=== PATIENT | male | born 1950 | race Caucasian/White ===

== ENCOUNTER → 2016-12-01 | Outpatient (REF) | payer MEDICARE, OTHER ==
[~2016-12-01] MED LIST: AMBI12.52 PO; AMBIE; AMBIEN PO; DOXA8TAB PO; FLEC50TA PO; FLUTISP; LIPI20TA PO; NORCOTAB PO; TENO25TA PO
[2016-12-01 13:00] LABS: ALBUMIN/GLOBULIN RATIO 1.29 (1.00-1.93); ALKALINE PHOSPHATASE 58 U/L (45-117); ALT/SGPT 25 U/L (12-78); ANION GAP 10 MEQ/L (8-16); AST/SGOT 17 U/L (15-37); BILIRUBIN,TOTAL 0.5 MG/DL (0.2-1.0); BLOOD UREA NITROGEN 23 MG/DL (7-18); CARBON DIOXIDE LEVEL 27 MEQ/L (21-32); CHLORIDE LEVEL 106 MEQ/L (98-107); CREATININE FOR GFR 0.99 MG/DL (0.70-1.30); GLOMERULAR FILTRATION RATE > 60.0 (>49); GLUCOSE, FASTING 97 MG/DL (80-110); MAGNESIUM LEVEL 2.1 MG/DL (1.8-2.4); POTASSIUM SERUM 4.5 MEQ/L (3.5-5.1); SODIUM LEVEL 143 MEQ/L (136-145); TOTAL PROTEIN 7.1 GM/DL (6.4-8.2)
== END ==
LOC: M SFHCPLAZ 07:48
PROVIDERS: ATTEND Internal Medicine
DX: I10 Essential (primary) hypertension (principal); R73.01 Impaired fasting glucose; Z01.818 Encounter for other preprocedural examination; Z12.5 Encounter for screening for malignant neoplasm of prostate
CPT/HCPCS: 36415; 80053; 83036; 83735; G0103

== ENCOUNTER → 2017-08-03 | Outpatient (REF) | payer MEDICARE, OTHER | LOC: M SFHCADAM 08:00 | PROVIDERS: ATTEND Internal Medicine | DX: K21.9 Gastro-esophageal reflux disease without esophagitis (principal); I10 Essential (primary) hypertension; E78.00 Pure hypercholesterolemia, unspecified; Z53.8 Procedure and treatment not carried out for other reasons ==

== ENCOUNTER → 2017-08-04 | Outpatient (REF) | payer MEDICARE, OTHER ==
[2017-08-04 12:57] LABS: MEAN CORPUSCULAR HEMOGLOBIN 30.3 pg (27.0-33.0); MEAN CORPUSCULAR HGB CONC 33.4 g/dl (32.0-36.5); MEAN CORPUSCULAR VOLUME 90.7 fl (80.0-96.0); RED CELL DISTRIBUTION WIDTH 13.4 % (11.5-14.5); WHITE BLOOD COUNT 5.5 10^3/uL (4.0-10.0)
[2017-08-04 13:09] LABS: ALBUMIN/GLOBULIN RATIO 1.18 (1.00-1.93); ALKALINE PHOSPHATASE 42 U/L (45-117); ALT/SGPT 26 U/L (12-78); ANION GAP 7 MEQ/L (8-16); AST/SGOT 15 U/L (15-37); BILIRUBIN,TOTAL 0.5 MG/DL (0.2-1.0); BLOOD UREA NITROGEN 29 MG/DL (7-18); CALCIUM LEVEL 9.6 MG/DL (8.8-10.2); CARBON DIOXIDE LEVEL 28 MEQ/L (21-32); CHLORIDE LEVEL 105 MEQ/L (98-107); CHOLESTEROL LEVEL 169 MG/DL (<200); CREATININE FOR GFR 0.92 MG/DL (0.70-1.30); GLOMERULAR FILTRATION RATE > 60.0 (>49); GLUCOSE, FASTING 101 MG/DL (80-110); MAGNESIUM LEVEL 2.1 MG/DL (1.8-2.4); POTASSIUM SERUM 4.1 MEQ/L (3.5-5.1); SODIUM LEVEL 140 MEQ/L (136-145); TOTAL PROTEIN 7.4 GM/DL (6.4-8.2); TRIGLYCERIDES LEVEL 77 MG/DL (<150)
== END ==
LOC: M SFHCADAM 08:05
PROVIDERS: ATTEND Internal Medicine
DX: K21.9 Gastro-esophageal reflux disease without esophagitis (principal); I10 Essential (primary) hypertension; E78.00 Pure hypercholesterolemia, unspecified

== ENCOUNTER → 2018-02-03 | Outpatient (REF) | payer MEDICARE, OTHER ==
[2018-02-03 13:06] LABS: APPEARANCE, URINE CLEAR (CLEAR); BACTERIA, URINE AUTO NEGATIVE (NEGATIVE); BILIRUBIN, URINE AUTO NEGATIVE (NEGATIVE); BLOOD, URINE BLOOD NEGATIVE (NEGATIVE); COLOR, URINE YELLOW (YELLOW); GLUCOSE, URINE (UA) AUTO NEGATIVE (NEGATIVE); KETONE, URINE AUTO NEGATIVE (NEGATIVE); LEUKOCYTE ESTERASE, URINE AUTO NEGATIVE (NEGATIVE); MUCUS, URINE SMALL (NEGATIVE); NITRITE, URINE AUTO NEGATIVE (NEGATIVE); PROTEIN, URINE AUTO NEGATIVE (NEGATIVE); RBC, URINE AUTO 0 /HPF (0-3); SPECIFIC GRAVITY URINE AUTO 1.021 (1.002-1.035); SQUAMOUS EPITHELIAL CELL UR AU 0 /HPF (0-6); UROBILINOGEN, URINE AUTO 0.2 mg/dL (0.0-2.0); WBC, URINE AUTO 0 /HPF (0-3)
[2018-02-03 13:17] LABS: VITAMIN B12 LEVEL 361 PG/ML
[2018-02-03 13:18] LABS: FOLATE 8.1 NG/ML
[2018-02-03 13:28] LABS: ALBUMIN 4.1 GM/DL (3.2-5.2); ALBUMIN/GLOBULIN RATIO 1.28 (1.00-1.93); ALKALINE PHOSPHATASE 45 U/L (45-117); ALT/SGPT 24 U/L (12-78); ANION GAP 8 MEQ/L (8-16); AST/SGOT 17 U/L (7-37); BILIRUBIN,TOTAL 0.5 MG/DL (0.2-1.0); BLOOD UREA NITROGEN 23 MG/DL (7-18); CALCIUM LEVEL 9.1 MG/DL (8.8-10.2); CARBON DIOXIDE LEVEL 26 MEQ/L (21-32); CHLORIDE LEVEL 107 MEQ/L (98-107); CREATININE FOR GFR 0.91 MG/DL (0.70-1.30); GLOMERULAR FILTRATION RATE > 60.0 (>49); GLUCOSE, FASTING 90 MG/DL (70-100); MAGNESIUM LEVEL 2.1 MG/DL (1.8-2.4); POTASSIUM SERUM 3.9 MEQ/L (3.5-5.1); SODIUM LEVEL 141 MEQ/L (136-145); TOTAL PROTEIN 7.3 GM/DL (6.4-8.2)
[2018-02-03 13:50] LABS: MAU/CREAT RATIO 7.4 MCG/MG (0.0-30.0)
[2018-02-03 14:35] LABS: ESTIMATED AVERAGE GLUCOSE 117 MG/DL (60-110); HEMOGLOBIN A1c 5.7 %
== END ==
LOC: M SFHCADAM 08:09
DX: I10 Essential (primary) hypertension (principal); R73.01 Impaired fasting glucose; G62.9 Polyneuropathy, unspecified; Z87.448 Personal history of other diseases of urinary system
CPT/HCPCS: 82746

== ENCOUNTER → 2018-10-29 | Outpatient (REF) | payer MEDICARE, OTHER ==
[2018-10-29 13:17] LABS: ALT/SGPT 25 U/L (12-78); BILIRUBIN,TOTAL 0.6 MG/DL (0.2-1.0); BLOOD UREA NITROGEN 16 MG/DL (7-18); CALCIUM LEVEL 8.8 MG/DL (8.8-10.2); CARBON DIOXIDE LEVEL 28 MEQ/L (21-32); CHLORIDE LEVEL 105 MEQ/L (98-107); CHOLESTEROL LEVEL 147 MG/DL (<200); CHOLESTEROL RISK RATIO 2.773 (<5); GLOMERULAR FILTRATION RATE > 60.0 (>49); GLUCOSE, FASTING 102 MG/DL (70-100); HDL CHOLESTEROL 53 MG/DL (>40); LDL CHOLESTEROL 70 MG/DL (<100); NON-HDL-C 94 MG/DL; POTASSIUM SERUM 4.1 MEQ/L (3.5-5.1); SODIUM LEVEL 141 MEQ/L (136-145); TOTAL PROTEIN 7.3 GM/DL (6.4-8.2); TRIGLYCERIDES LEVEL 121 MG/DL (<150)
== END ==
LOC: M SFHCADAM 07:48
PROVIDERS: ATTEND Internal Medicine
DX: I10 Essential (primary) hypertension (principal); E78.00 Pure hypercholesterolemia, unspecified; I48.0 Paroxysmal atrial fibrillation; Z23 Encounter for immunization
CPT/HCPCS: 80053; 80061; 83735; 84443; 90682; G0008; G0463

== ENCOUNTER 2019-04-19 00:31 | Inpatient (IN) | payer MEDICARE, OTHER ==
[~2019-04-19] VITALS: Ht 175.3 cm; Wt 106.3 kg
[~2019-04-19 00:31] MED LIST changes: +FLEC50HA PO; -FLEC50TA PO; +FLUT1SPR2; -FLUTISP
[2019-04-19] MEDS ORDERED: BISO5TAB5 PO ×2 (00:37→08:44)
[2019-04-19] MEDS ORDERED: LANS30CA93 (00:37)
[2019-04-19] MEDS ORDERED: CHLO125TA (00:37)
[2019-04-19] MEDS ORDERED: AMLO10TA5 (00:37)
[2019-04-19] MEDS ORDERED: ONDANSETRON 4MG/2ML VIAL (J2405) IV ONE (01:30)
[2019-04-19] MEDS: MORPHINE 4 MG/ML 1ML VIAL/SYRINGE (J2270) IV PRN ×5 (01:52→22:17)
[2019-04-19 01:59] LABS: BASO # 0.1 10^3/uL (0.0-0.2); BASO % 0.9 % (0.0-1.0); EOS # 0.1 10^3/uL (0.0-0.50); HEMATOCRIT 44.4 % (42.0-52.0); LYMPH # 1.3 10^3/uL (1.5-4.5); LYMPH % 19.2 % (24.0-44.0); MEAN CORPUSCULAR HEMOGLOBIN 30.6 pg (27.0-33.0); MEAN CORPUSCULAR HGB CONC 33.8 g/dl (32.0-36.5); MEAN CORPUSCULAR VOLUME 90.6 fl (80.0-96.0); MONO # 0.5 10^3/uL (0.0-0.8); MONO % 7.8 % (0.0-5.0); NEUTROPHILS # 4.6 10^3/uL (1.8-7.7); NEUTROPHILS % 69.6 % (36.0-66.0); PLATELET COUNT, AUTOMATED 198 10^3/uL (150-450); WHITE BLOOD COUNT 6.7 10^3/uL (4.0-10.0)
[2019-04-19 02:05] LABS: INR 0.95; PROTHROMBIN TIME 12.4 SECONDS (11.8-14.0)
[2019-04-19 02:06] LABS: PARTIAL THROMBOPLASTIN TIME 25.9 SECONDS (25.0-38.4)
[2019-04-19 02:16] LABS: ALBUMIN 3.8 GM/DL (3.2-5.2); ALT/SGPT 27 U/L (12-78); BILIRUBIN,DIRECT < 0.1 MG/DL (0.0-0.2); BILIRUBIN,TOTAL 0.1 MG/DL (0.2-1.0); LIPASE 363 U/L (73-393); TOTAL PROTEIN 7.6 GM/DL (6.4-8.2)
[2019-04-19] MEDS ORDERED: ISOVUE-370 76% 100ML VIAL (Q9967) As Ordered ONE (02:54)
[2019-04-19] MEDS: HYDROMORPHONE HCL 0.5 MG/ 0.5 ML SYRINGE (J1170 PER 1) IV PRN ×2 (03:01→05:27)
--- NOTE | 2019-04-19 06:31 | REPVR ---
EXAM: CT Abdomen and Pelvis With Contrast EXAM DATE/TIME: 04/19/2019 3:07 AM CLINICAL HISTORY: 68 years old, male; Epigastric pain, intractable vomiting TECHNIQUE: Imaging protocol: Axial computed tomography images of the abdomen and pelvis with intravenous contrast. Coronal and sagittal reformatted images were created and reviewed. Radiation optimization: All CT scans at this facility use at least one of these dose optimization techniques: automated exposure control; mA and/or kV adjustment per patient size (includes targeted exams where dose is matched to clinical indication); or iterative reconstruction. Contrast material: ISOVUE 370; Contrast volume: 100 ml; Contrast route: IV; COMPARISON: CT ANGIO CHEST 07/07/2012 5:18:15 PM FINDINGS: Tubes, catheters and devices: Pacemaker wires are noted in the right atrium and right ventricle. Lungs: There is mild dependent atelectasis in both lower lobes. Heart: No cardiomegaly is noted. There is a small water density pericardial effusion. Mediastinum: There is a large sliding hiatal hernia. Liver: Unremarkable. No liver lesion is seen. The contour of the liver is smooth. No hepatomegaly is noted. Gallbladder and bile ducts: The gallbladder is markedly distended and contains a 6 mm calculus in the distal body. No gallbladder wall thickening, pericholecystic fluid, or pericholecystic inflammatory changes are identified. No dilation of the intrahepatic or extrahepatic bile ducts is noted. The common bile that measures 5 mm in diameter. No calcified gallstones are seen in the common bile duct. Pancreas: Normal. No ductal dilation. Spleen: Normal. No splenomegaly. Adrenals: There is an 8 mm oval shaped nodule in the lateral limb of the right adrenal gland that measures 24 Hounsfield units, which is stable compared to the prior CTA chest on 07/07/2012. The left adrenal gland is normal. Kidneys and ureters: There are bilateral renal cysts, the largest measuring 3.5 cm in the inferior pole of the left kidney. No calculi are seen in the kidneys or ureters. There is no hydronephrosis or hydroureter. Stomach and bowel: There is a 4.2 cm diverticulum containing an air-fluid level arising from the distal third portion of the duodenum. There is no evidence for a bowel obstruction, diverticulitis, colitis, pneumatosis intestinalis, intussusception, volvulus, or perforated viscus. Appendix: Normal. No evidence for appendicitis. Intraperitoneal space: Unremarkable. No free air. No fluid collection. Vasculature: There are mild atherosclerotic calcifications. The abdominal aorta is patent, normal in caliber, and there is no dissection. The iliac arteries, common femoral arteries, renal arteries, celiac artery, superior mesenteric artery, and inferior mesenteric artery are patent. The renal veins, portal veins, splenic vein, superior mesenteric vein, and inferior mesenteric vein are patent. Lymph nodes: Normal. No enlarged lymph nodes. Bladder: There is a 6 mm diverticulum arising from the right posterolateral aspect of the urinary bladder. No calculi or masses are noted in the bladder. Reproductive: The prostate gland is enlarged and measures 4.9 cm x 4.3 cm x 5.2 cm and the volume of the prostate gland is increased and measures 57.4 mL. There are calcifications in the prostate gland. The seminal vesicles are unremarkable. Bones/joints: There are old healed fracture deformities involving the right anterior 9th and 10th ribs. No acute fracture is noted. An intramedullary nail tract is noted in the left proximal femur from prior hardware that has been removed. There is a large well-corticated ossicle superior to the left greater femoral trochanter. There is a tiny metallic fragment in the left greater femoral trochanter. There are degenerative changes in the lumbar spine. There is no suspicious osteolytic or osteoblastic lesion. Soft tissues: There is a soft tissue density within the umbilicus and also posterior to the umbilicus, which may represent a hernia repair mesh plug. There is a tiny metallic fragment in the left gluteus medius muscle just superior to the left greater femoral trochanter likely related to prior orthopedic fixation hardware that has been removed. IMPRESSION: 1. Markedly distended gallbladder and cholelithiasis. 2. Large sliding hiatal hernia. 3. Duodenal diverticulosis without evidence for diverticulitis. 4. Enlarged prostate gland and a diverticulum arising from the urinary bladder. Electronically signed by: Jose Armando Duong On 04/19/2019 06:30:27 AM
[2019-04-19] MEDS ORDERED: NS 1,000 ML IV SCH (07:27)
[2019-04-19] MEDS ORDERED: POTASSIUM CHLORIDE 10 MEQ SR TABLET PO ONE (07:45)
--- NOTE | 2019-04-19 08:37 | REP ---
Clinical: Right upper quadrant pain. Technique: Real time miller scale and color evaluation using curved array transducer. Findings: The gallbladder is moderately distended and measures 13.2 x 5.0 x 5.1 cm with mild wall thickening and evidence for small gallstones and layering sludge. No biliary ductal dilatation is appreciated and the common bile duct measures 5.9 mm diameter. No sonographic Celaya's sign was elicited during examination. Liver and visualized pancreas are normal in contour, size, echogenicity without focal hepatic or pancreatic lesion identified. The right kidney is normal in reniform shape without hydronephrosis and measures 13.1 x 6.8 x 7.0 cm. No ascites in the visualized right upper quadrant. Impression: Dilated gallbladder with mild wall thickening and evidence for cholelithiasis. Findings are equivocal for acute cholecystitis by sonographic evaluation and require correlation. Electronically Signed by Damion Robles MD 04/19/2019 08:01 A
[2019-04-19] MEDS ORDERED: ATOR40TA75 PO (08:44)
[2019-04-19] MEDS ORDERED: DOXA1TAB49 PO (08:44)
[2019-04-19] MEDS ORDERED: ASPI-1 PO (08:44)
[2019-04-19] MEDS ORDERED: FLON1SPR NARES (08:44)
[2019-04-19] MEDS ORDERED: FLEC1TAB PO (08:44)
[2019-04-19] MEDS ORDERED: LANS30CA PO (08:44)
[2019-04-19] MEDS ORDERED: CHLO25TA PO (08:44)
[2019-04-19] MEDS ORDERED: AMBI10TA PO (08:44)
[2019-04-19] MEDS ORDERED: AMLO10TA5 PO (08:44)
[2019-04-19] MEDS ORDERED: NORC1TAB8 PO (08:44)
[2019-04-19] MEDS ORDERED: BISOPROLOL FUMARATE 5 MG TAB PO ONE (08:45)
[2019-04-19] MEDS ORDERED: PANTOPRAZOLE 40MG INJ (PROTONIX) (C9113) IV SCH (09:00)
[2019-04-19] MEDS ORDERED: BISOPROLOL FUMARATE 5 MG TAB PO SCH (09:00)
[2019-04-19] MEDS ORDERED: PIPERACILLIN/TAZOBACTAM SOD 3.375 GM in D5W MINI-BAG PLUS 50 ML IV ONE (10:00)
[2019-04-19] MEDS ORDERED: GI COCKTAIL 50ML BTL(HYOSCYAMINE/MAALOX/LIDOCAINE VISCOUS)(1:3:1) PO ONE (10:15)
[2019-04-19] MEDS: FLECAINIDE 50MG TABLET PO SCH ×2 (12:40→22:14)
[2019-04-19] MEDS ORDERED: ONDANSETRON 4MG/2ML VIAL (J2405) IV PRN (12:45)
[2019-04-19] MEDS ORDERED: MORPHINE 4 MG/ML 1ML VIAL/SYRINGE (J2270) IV PRN (12:45)
[2019-04-19] MEDS ORDERED: PERCOCET 5MG/325MG TAB PO PRN (12:45)
[2019-04-19] MEDS ORDERED: METOCLOPRAMIDE INJ 10MG/2ML VIAL (J2765) IV PRN (12:45)
[2019-04-19] MEDS: SUCRALFATE 1 GM TAB PO SCH ×3 (12:45→22:14)
[2019-04-19] MEDS ORDERED: PIPERACILLIN/TAZOBACTAM SOD 3.375 GM in D5W MINI-BAG PLUS 50 ML IV SCH (13:00)
--- NOTE | 2019-04-19 13:52 | HPEPDOC ---
[facility] Medical History & Physical Date of Admission Date of Service: Apr 19, 2019 Attending Physician: RYLEE LEMON MD History and Physical CHIEF COMPLAINT: Mr. James is a 68 year old white male that presented to the ED with abdominal pain, nausea, and vomiting. HISTORY OF PRESENT ILLNESS: Mr. James is a 68-year-old white male that presented to the ED with abdominal pain, nausea and vomiting. He reports that the pain started last night at 10:00 pm after he ate a can of sausage. He states that the pain is in his epigastric region, midline, and does not radiate anywhere. He has never had pain or symptoms like this before. He states that the pain has been constant since it started last night and that it began as a 2-3/10 and progressed to a 7/10. He waited for 2 hours last night to see if the pain would pass but it did not so he presented to the ER for further evaluation. He states that the Morphine he received in the ER did not do much for the pain but that Dilaudid brought the pain down to a 3/10. He describes the pain as dull and constant with times where it is sharp and stabbing. He states that had an episode of vomiting last night which did not resolve his pain or discomfort. He has had nausea occurring into today that has resolved with Zofran. He reported experiencing diarrhea yesterday morning at around 9:00am. He states that this has improved since his presentation to the ER with only a small amount of watery diarrhea on his last bowel movement. He denies blood in his stool or vomit. He reported fever and chills yesterday which have resolved today. Patient denies cp, palpitations, sob, fever, chills, discomfort on urination, or dizziness. PAST MEDICAL HISTORY: 1. A fib 2. s/p pacemaker implantation 3. HTN 4. DLP 5. Umbilical hernia 6. Bilateral femur fractures 7. Knee replacements b/l PAST SURGICAL HISTORY: 1. B/ knee replacements 2. 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 FAMILY HISTORY: Father: Colon cancer, emphysema, of a ruptured stomach aneurysm during surgery Mother: at 49 due to a stroke, Hx of HTN and kidney tumor ALLERGIES: Please see below. REVIEW OF SYSTEMS: CONSTITUTIONAL: . HEENT: . CARDIOVASCULAR: . RESPIRATORY: . GASTROINTESTINAL: . GENITOURINARY: . SKIN: . MUSCULOSKELETAL: . NEUROLOGICAL: . PSYCHIATRIC: . ENDOCRINE: . HEMATOLOGIC/LYMPHATIC: . HOME MEDICATIONS: Please see below. PHYSICAL EXAMINATION: VITAL SIGNS: Temperature , pulse , respiratory rate , blood pressure , pulse oximetry % on room air. GENERAL APPEARANCE: . HEENT: . CARDIOVASCULAR: . LUNGS: . ABDOMEN: . MUSCULOSKELETAL: . EXTREMITIES: . NEUROLOGICAL: . PSYCHIATRIC: . LABORATORY DATA: See below. IMAGING: MICROBIOLOGY: Please see below. ASSESSMENT: . . PLAN: 1. . Vital Signs Vital Signs Date Time Temp Pulse Resp B/P (MAP) Pulse Ox O2 Delivery O2 Flow Rate FiO2 04/19/19 12:46 99.4 65 17 95 Nasal Cannula 2.0 04/19/19 12:45 139/78 (98) Laboratory Data Labs 24H Laboratory Tests 2 04/19/19 01:43: POC Glucose (Misc Panel) 113H, POC Sodium (Misc Panel) 145, POC Potassium (Misc Panel) 3.3L, POC Chloride (Misc Panel) 108, POC Total CO2 (Misc Panel) 21.0L, POC Blood Urea Nitrogen (Misc Panel 17, POC Ionized Calcium (Misc Panel) 4.8, POC Creatinine (Misc Panel) 0.9, POC Hematocrit (Misc Panel) 45.0 04/19/19 01:48: Immature Granulocyte % (Auto) 0.5, White Blood Count 6.7, Red Blood Count 4.90, Hemoglobin 15.0, Hematocrit 44.4, Mean Corpuscular Volume 90.6, Mean Corpuscular Hemoglobin 30.6, Mean Corpuscular Hemoglobin Concent 33.8, Red Cell Distribution Width 13.5, Platelet Count 198, Neutrophils (%) (Auto) 69.6H, Lymphocytes (%) (Auto) 19.2L, Monocytes (%) (Auto) 7.8H, Eosinophils (%) (Auto) 2.0, Basophils (%) (Auto) 0.9, Neutrophils # (Auto) 4.6, Lymphocytes # (Auto) 1.3L, Monocytes # (Auto) 0.5, Eosinophils # (Auto) 0.1, Basophils # (Auto) 0.1, Nucleated Red Blood Cells % (auto) 0.0, Prothrombin Time 12.4, Prothromb Time International Ratio 0.95, Activated Partial Thromboplast Time 25.9, Lactic Acid Level 2.6*H, Aspartate Amino Transf (AST/SGOT) 13, Alanine Aminotransferase (ALT/SGPT) 27, Alkaline Phosphatase 47, Total Bilirubin 0.1L, Direct Bilirubin < 0.1, Total Protein 7.6, Albumin 3.8, Albumin/Globulin Ratio 1.00, Lipase 363 CBC/BMP Laboratory Tests 04/19/19 01:48 Red Blood Count 4.90, Mean Corpuscular Volume 90.6, Mean Corpuscular Hemoglobin 30.6, Mean Corpuscular Hemoglobin Concent 33.8, Red Cell Distribution Width 13.5, Neutrophils (%) (Auto) 69.6 H, Lymphocytes (%) (Auto) 19.2 L, Monocytes (%) (Auto) 7.8 H, Eosinophils (%) (Auto) 2.0, Basophils (%) (Auto) 0.9, Neut rophils # (Auto) 4.6, Lymphocytes # (Auto) 1.3 L, Monocytes # (Auto) 0.5, Eosinophils # (Auto) 0.1, Basophils # (Auto) 0.1 Home Medications Scheduled Amlodipine Besylate (Amlodipine Besylate) 10 Mg Tablet, 10 MG PO QHS Aspirin (Aspirin) 325 Mg Tablet, 325 MG PO DAILY Atorvastatin Calcium (Atorvastatin Calcium) 40 Mg Tablet, 40 MG PO QHS Bisoprolol Fumarate (Bisoprolol Fumarate) 5 Mg Tablet, 5 MG PO DAILY Chlorthalidone (Chlorthalidone) 25 Mg Tablet, 12.5 MG PO DAILY Doxazosin Mesylate (Doxazosin Mesylate) 8 Mg Tablet, 4 MG PO QHS Flecainide Acetate (Flecainide Acetate) 100 Mg Tablet, 100 MG PO BID Fluticasone Propionate (Flonase Allergy Relief) 9.9 Ml [place].susp, 2 SPRAYS NARES DAILY Lansoprazole (Lansoprazole) 30 Mg Capsule.dr, 30 MG PO BID Scheduled PRN Hydrocodone/Acetaminophen ([place] 7.5-325 Tablet) 1 Each Tablet, 1 TAB PO QID PRN for PAIN Zolpidem Tartrate (Ambien) 10 Mg Tablet, 10 MG PO QHS PRN for SLEEP Allergies Coded Allergies: lisinopril (Verified Allergy, Severe, FACIAL SWELLING, 04/19/19) clarithromycin (Verified Allergy, Intermediate, HIVES, 04/19/19) A-FIB/CHADSVASC A-FIB History Current/History of A-Fib/PAF?: Yes Current PO Anticoag Therapy: No GME ATTESTATION GME ATTESTATION My faculty preceptor for this patient encounter was physically present during the encounter and was fully available. All aspects of the patient interview, examination, medical decision making process, and medical care plan development were reviewed and approved by the faculty preceptor. The faculty preceptor is aware and concurs with the plan as stated in the body of this note and will attest to such by his/her cosignature. IMTIAZ JACKSON OMS-3 Apr 19, 2019 13:52 RYLEE LEMON MD Apr 19, 2019 14:19
--- NOTE | 2019-04-19 14:21 | CR.PDOC ---
General Date of Consultation: Apr 19, 2019 Consultation REASON FOR CONSULTATION/CHIEF COMPLAINT: Who presented to the ED with abdominal pain, nausea, and vomiting. HISTORY OF PRESENT ILLNESS: Mr. James is a 68-year-old white male that presented to the ED with abdominal pain, nausea and vomiting. He reports that the pain started last night at 10:00 pm after he ate a can of sausage. He states that the pain is in his epigastric region, midline, and does not radiate anywhere. He has never had pain or symptoms like this before. He states that the pain has been constant since it started last night and that it began as a 2-3/10 and progressed to a 7/10. He waited for 2 hours last night to see if the pain would pass but it did not so he presented to the ER for further evaluation. He states that the Morphine he received in the ER did not do much for the pain but that Dilaudid brought the pain down to a 3/10. He describes the pain as dull and constant with times where it is sharp and stabbing. He states that had an episode of vomiting last night which did not resolve his pain or discomfort. He has had nausea occurring into today that has resolved with Zofran. He reported experiencing diarrhea yesterday morning at around 9:00am. He states that this has improved since his presentation to the ER with only a small amount of watery diarrhea on his last bowel movement. He denies blood in his stool or vomit. He reported fever and chills yesterday which have resolved today. Patient denies cp, palpitations, sob, fever, chills, discomfort on urination, or dizziness. ALLERGIES: Please see below. HOME MEDICATIONS: Please see below. PAST MEDICAL HISTORY: 1. A fib 2. s/p pacemaker implantation 3. HTN 4. DLP 5. Umbilical hernia PAST SURGICAL HISTORY: 1. B/ knee replacements 2. s/p pacemaker implantation 3. 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 REVIEW OF SYSTEMS: 10 point review of systems complete, all negative otherwise stated in HPI PHYSICAL EXAMINATION: - Vitals: BP 134/79, HR 60, RR 17, Sat 95%NC2L, Temp 99.4F - General: Lying in bed, No acute distress, Speaking in full sentences, AAOx3 - HEENT: NC, AT, PERRLA, EOMI - CVS: RRR, +S1S2 - Lungs: Fair air entry bilaterally, No wheezing / rales / rhonchi - Abdomen: Soft, Non-distended, No significant tenderness on palpation, Hypoactive bowel sounds - Extremities: No lower extremity edema, No calf tenderness - Neuro: No focal motor or sensory deficit - Skin: No visible rashes LABORATORY DATA: Please see below. ASSESSMENT/PLAN: Abdominal pain - likely 2/2 acute cholecystitis - Presented to the ER with complaints of abdominal pain; associated with diarrhea - Physical without any significant abdominal tenderness - No leukocytosis; mild lactic acidosis - Imaging consistent with cholelithiasis and possible acute cholecystitis - Coverage with Zosyn for intra-abdominal source of infection - Managed by primary surgical team; nothing by mouth and IV fluids; possible OR intervention Lactic acidosis - c/w IV fluid hydration A fib - s/p pacemaker implantation - c/w Flecainide and Bisoprolol - Not on full anticoagulation; currently on ASA 325 alone; will hold pending surgery HTN - BP well controlled - c/w Bisoprolol, amlodipine DLP - c/w Atorvastatin Gastrointestinal prophylaxis - Will start Protonix IV BID DVT prophylaxis - Will start Heparin Vital Signs/I&O Vital Signs Date Time Temp Pulse Resp B/P (MAP) Pulse Ox O2 Delivery O2 Flow Rate FiO2 04/19/19 13:31 60 95 Nasal Cannula 2.0 04/19/19 13:15 134/79 (97) 04/19/19 12:46 99.4 17 Laboratory Data Labs 24H Laboratory Tests 2 04/19/19 01:43: POC Glucose (Misc Panel) 113H, POC Sodium (Misc Panel) 145, POC Potassium (Misc Panel) 3.3L, POC Chloride (Misc Panel) 108, POC Total CO2 (Misc Panel) 21.0L, POC Blood Urea Nitrogen (Misc Panel 17, POC Ionized Calcium (Misc Panel) 4.8, POC Creatinine (Misc Panel) 0.9, POC Hematocrit (Misc Panel) 45.0 04/19/19 01:48: Immature Granulocyte % (Auto) 0.5, White Blood Count 6.7, Red Blood Count 4.90, Hemoglobin 15.0, Hematocrit 44.4, Mean Corpuscular Volume 90.6, Mean Corpuscular Hemoglobin 30.6, Mean Corpuscular Hemoglobin Concent 33.8, Red Cell Distribution Width 13.5, Platelet Count 198, Neutrophils (%) (Auto) 69.6H, Lymphocytes (%) (Auto) 19.2L, Monocytes (%) (Auto) 7.8H, Eosinophils (%) (Auto) 2.0, Basophils (%) (Auto) 0.9, Neutrophils # (Auto) 4.6, Lymphocytes # (Auto) 1.3L, Monocytes # (Auto) 0.5, Eosinophils # (Auto) 0.1, Basophils # (Auto) 0.1, Nucleated Red Blood Cells % (auto) 0.0, Prothrombin Time 12.4, Prothromb Time International Ratio 0.95, Activated Partial Thromboplast Time 25.9, Lactic Acid Level 2.6*H, Aspartate Amino Transf (AST/SGOT) 13, Alanine Aminotransferase (ALT/SGPT) 27, Alkaline Phosphatase 47, Total Bilirubin 0.1L, Direct Bilirubin < 0.1, Total Protein 7.6, Albumin 3.8, Albumin/Globulin Ratio 1.00, Lipase 363 04/19/19 13:48: CBC/BMP Laboratory Tests 04/19/19 01:48 Red Blood Count 4.90, Mean Corpuscular Volume 90.6, Mean Corpuscular Hemoglobin 30.6, Mean Corpuscular Hemoglobin Concent 33.8, Red Cell Distribution Width 13.5, Neutrophils (%) (Auto) 69.6 H, Lymphocytes (%) (Auto) 19.2 L, Monocytes (%) (Auto) 7.8 H, Eosinophils (%) (Auto) 2.0, Basophils (%) (Auto) 0.9, Neutrophils # (Auto) 4.6, Lymphocytes # (Auto) 1.3 L, Monocytes # (Auto) 0.5, Eosinophils # (Auto) 0.1, Basophils # (Auto) 0.1 Allergies Coded Allergies: lisinopril (Verified Allergy, Severe, FACIAL SWELLING, 04/19/19) clarithromycin (Verified Allergy, Intermediate, HIVES, 04/19/19) Home Medications Scheduled Amlodipine Besylate (Amlodipine Besylate) 10 Mg Tablet, 10 MG PO QHS, (Reported) Aspirin (Aspirin) 325 Mg Tablet, 325 MG PO DAILY, (Reported) Atorvastatin Calcium (Atorvastatin Calcium) 40 Mg Tablet, 40 MG PO QHS, (Reported) Bisoprolol Fumarate (Bisoprolol Fumarate) 5 Mg Tablet, 5 MG PO DAILY, (Reported) Chlorthalidone (Chlorthalidone) 25 Mg Tablet, 12.5 MG PO DAILY, (Reported) Doxazosin Mesylate (Doxazosin Mesylate) 8 Mg Tablet, 4 MG PO QHS, (Reported) Flecainide Acetate (Flecainide Acetate) 100 Mg Tablet, 100 MG PO BID, (Reported) Fluticasone Propionate (Flonase Allergy Relief) 9.9 Ml [place].susp, 2 SPRAYS NARES DAILY, (Reported) Lansoprazole (Lansoprazole) 30 Mg Capsule.dr, 30 MG PO BID, (Reported) Scheduled PRN Hydrocodone/Acetaminophen ([place] 7.5-325 Tablet) 1 Each Tablet, 1 TAB PO QID PRN for PAIN, (Reported) Zolpidem Tartrate (Ambien) 10 Mg Tablet, 10 MG PO QHS PRN for SLEEP, (Reported) RYLEE LEMON MD Apr 19, 2019 14:21
[2019-04-19] MEDS: NS 1,000 ML IV SCH ×2 (14:34→22:18)
[2019-04-19 14:37] VITALS: BP 145/89
[2019-04-19] MEDS: HEPARIN SOD (PORCINE) 5000 UNITS/ML VIAL SC SCH ×2 (14:55→22:17)
[2019-04-19] MEDS: PERCOCET 5MG/325MG TAB PO PRN ×2 (14:56→20:03)
[2019-04-19] MEDS: PIPERACILLIN/TAZOBACTAM SOD 3.375 GM in D5W MINI-BAG PLUS 50 ML IV SCH ×2 (16:12→22:14)
[2019-04-19 18:00] VITALS: BP 116/69
[2019-04-19 22:00] VITALS: BP 124/68
[2019-04-19] MEDS: PANTOPRAZOLE 40MG INJ (PROTONIX) (C9113) IV SCH (22:13)
[2019-04-19] MEDS: DOXAZOSIN MESYLATE 4 MG TAB PO SCH (22:15)
[2019-04-19] MEDS: ATORVASTATIN 20 MG TAB PO SCH (22:15)
[2019-04-19] MEDS: amLODIPine 10 MG TAB PO SCH (22:31)
--- NOTE | 2019-04-19 23:28 | HPE ---
DATE OF ADMISSION: 04/19/2019 CHIEF COMPLAINT: Epigastric pain and slight right upper quadrant pain starting after eating a can of Madeleine sausage last night at 10:00 p.m. Since that time, he has some constant pain, and it has not significantly improved. He was brought to the emergency room where he did have some pain medication that seemed to help with his pain; however, still has ongoing discomfort. States that it is not worse than it was previously and has not had any fevers or chills. Has not had any bilirubinuria or acholic stools. Had an episode of vomiting last night. He also had an episode of diarrhea yesterday morning prior to this episode of epigastric right upper quadrant pain. Did have an upper and lower endoscopy by Dr. Isabella Duncan in [place], and this revealed some inflammatory changes in the terminal ileum, reportedly, some mild inflammation in the stomach but no significant ulcerations, no evidence of masses or lesions appreciated. The patient's past medical history is history for atrial fibrillation (a fib), history of pacemaker implantation, hypertension, dyslipidemia (DLP), umbilical hernia repair, bilateral knee replacements. PHYSICAL EXAM: Reveals a 68-year-old male who looks stated age. HEENT is unremarkable. Neck: Supple without adenopathy. Lungs are clear to auscultation. Heart is regular. Abdomen is soft, nondistended, nontender. No guarding, no rebound, no peritoneal signs are appreciated. IMPRESSION AND PLAN: The patient has abdominal pain, although no abdominal tenderness. His white count is completely normal, and his imaging thus far reveals some questionable wall thickening, although it is hard to tell if that is wall thickening or whether that is just some fatty tissue on the ultrasounds. The gallbladder is slightly dilated. He does have some gallstones. There is no common bile duct dilatation. And once again, his laboratory reveals a normal white count and normal liver function tests, lipase. The patient has abdominal pain in the epigastric area, slightly off to the right. It is hard to tell if he has a duodenal diverticulum appreciated on his study or even if there might be a little bit of thickening of his duodenum on his CT scan. But at this point, treatment with antibiotics is very reasonable and keeping him nothing by mouth (n.p.o.) and aggressively treating his upper gastrointestinal (GI) tract just in case this might be the etiology for his pain instead of true cholecystitis. We will see how he does overnight with antibiotics, nothing by mouth and progress his diet once we have a better handle on how he is doing. Otherwise, I appreciate medicine's input with all of his medical issues. The patient does have a history of ethyl alcohol (EtOH) use, and I anticipate that his pain control might be a little bit of an issue given that he may need higher doses to stay comfortable. But as his inflammatory changes improve or possibly his GI issues improve, his abdominal pain should improve as well. He understands our current plan, and we will watch him overnight and see how he does and depending on his improvement, will determine our next step.
[2019-04-20] MEDS: PERCOCET 5MG/325MG TAB PO PRN ×3 (01:01→18:25)
[2019-04-20 02:00] VITALS: BP 117/64
[2019-04-20] MEDS: PIPERACILLIN/TAZOBACTAM SOD 3.375 GM in D5W MINI-BAG PLUS 50 ML IV SCH ×4 (04:00→21:18)
[2019-04-20] MEDS: HEPARIN SOD (PORCINE) 5000 UNITS/ML VIAL SC SCH ×3 (05:16→21:17)
[2019-04-20 06:00] VITALS: BP 129/68
[2019-04-20 06:29] LABS: BASO % 0.1 % (0.0-1.0); HEMATOCRIT 37.9 % (42.0-52.0); LYMPH # 0.5 10^3/uL (1.5-4.5); LYMPH % 3.7 % (24.0-44.0); MEAN CORPUSCULAR HEMOGLOBIN 29.4 pg (27.0-33.0); MEAN CORPUSCULAR HGB CONC 33.2 g/dl (32.0-36.5); MEAN CORPUSCULAR VOLUME 88.3 fl (80.0-96.0); MONO # 1.3 10^3/uL (0.0-0.8); MONO % 9.1 % (0.0-5.0); NEUTROPHILS # 12.3 10^3/uL (1.8-7.7); NEUTROPHILS % 86.3 % (36.0-66.0); PLATELET COUNT, AUTOMATED 157 10^3/uL (150-450); RED BLOOD COUNT 4.29 10^6/uL (4.30-6.10); WHITE BLOOD COUNT 14.2 10^3/uL (4.0-10.0)
[2019-04-20 06:39] LABS: HEMOGLOBIN 12.6 g/dl (13.5-17.5)
[2019-04-20 07:15] LABS: ALBUMIN 3.1 GM/DL (3.2-5.2); ALT/SGPT 20 U/L (12-78); BILIRUBIN,TOTAL 1.1 MG/DL (0.2-1.0); BLOOD UREA NITROGEN 13 MG/DL (7-18); CALCIUM LEVEL 8.3 MG/DL (8.8-10.2); CARBON DIOXIDE LEVEL 29 MEQ/L (21-32); CHLORIDE LEVEL 106 MEQ/L (98-107); CREATININE FOR GFR 0.82 MG/DL (0.70-1.30); GLOMERULAR FILTRATION RATE > 60.0 (>49); GLUCOSE, FASTING 110 MG/DL (70-100); MAGNESIUM LEVEL 1.6 MG/DL (1.8-2.4); POTASSIUM SERUM 2.9 MEQ/L (3.5-5.1); SODIUM LEVEL 141 MEQ/L (136-145); TOTAL PROTEIN 6.8 GM/DL (6.4-8.2)
[2019-04-20] MEDS ORDERED: POTASSIUM CHLORIDE 10 MEQ SR TABLET PO ONE (08:00)
[2019-04-20] MEDS ORDERED: MAG SULF 1GM/100ML (MAG RUN) 1 GM in APPROPRIATE DILUENT 1 EA IV ONE (08:00)
[2019-04-20] MEDS: PANTOPRAZOLE 40MG INJ (PROTONIX) (C9113) IV SCH ×2 (08:16→21:17)
[2019-04-20] MEDS: FLECAINIDE 50MG TABLET PO SCH ×2 (08:17→21:17)
[2019-04-20] MEDS: SUCRALFATE 1 GM TAB PO SCH ×4 (08:17→21:16)
[2019-04-20] MEDS: FLUTICASONE PROP 0.05% NASAL SPRAY 16 GM (FLONASE) NARES SCH (08:17)
[2019-04-20] MEDS: KCL 40MEQ in NS 1000ML 1,000 ML IV SCH ×2 (08:18→15:37)
[2019-04-20] MEDS: BISOPROLOL FUMARATE 5 MG TAB PO SCH (08:21)
[2019-04-20] MEDS ORDERED: PILL CUTTER 1 EACH XX PRN (09:00)
[2019-04-20] MEDS ORDERED: SIMETHICONE 80 MG CHEW TAB PO SCH (09:00)
[2019-04-20] MEDS ORDERED: SIMETHICONE 80 MG CHEW TAB PO PRN (09:00)
[2019-04-20 10:10] VITALS: BP 126/70
--- NOTE | 2019-04-20 10:11 | REP ---
Clinical: Abdominal distension. Technique: Two supine views of the abdomen and pelvis. Findings: Bowel gas pattern is nonspecific and without evidence for obstruction or perforation. Fecal stasis cannot be excluded. No organomegaly. No significant abnormal calcifications are appreciated. Phleboliths noted in the pelvis. Skeletal structures intact. Impression: Nonspecific bowel pattern. Electronically Signed by Damion Robles MD 04/20/2019 10:02 A
[2019-04-20] MEDS: KETOROLAC 30 MG/ML VIAL (J1885) IV SCH ×3 (10:56→22:13)
--- NOTE | 2019-04-20 11:25 | IPNPDOC ---
Text Note Date of Service The patient was seen on 04/20/19. NOTE Subjective: Mr. James is a 68-year-old white male that presented to the ED with abdominal pain, nausea and vomiting. He reports that the pain started last night at 10:00 pm after he ate a can of sausage. He states that the pain is in his epigastric region, midline, and does not radiate anywhere. He has never had pain or symptoms like this before. He states that the pain has been constant since it started last night and that it began as a 2-3/10 and progressed to a 7/10. He waited for 2 hours last night to see if the pain would pass but it did not so he presented to the ER for further evaluation. Patient was admitted to surgical service for suspected acute cholecystitis. Hospitalist service was consulted for medical management. Patient was seen and examined at the bedside. Patient denies any chest pain, shortness breath, palpitation. They do report some abdominal distention but denies any significant pain. Denies nausea, vomiting. Has not yet had a bowel movement since admission. Denies urinary discomfort. Objective: Vitals (See below) General: Lying in bed, no acute distress, comfortable, AAOx3 HEENT: NC, AT CVS: RRR, +S1S2 Lungs: Fair air entry b/l, no appreciable wheezing, rhonchi or rales Abdomen: Soft, mildly distended without tenderness Extremities: Lower extremities are free of any edema, - Calf tenderness Imaging: - CT abdomen / pelvis 04/19: 1. Markedly distended gallbladder and cholelithiasis. 2. Large sliding hiatal hernia. 3. Duodenal diverticulosis without evidence for diverticulitis. 4. Enlarged prostate gland and a diverticulum arising from the urinary bladder. - US abdomen 04/19: Dilated gallbladder with mild wall thickening and evidence for cholelithiasis. Findings are equivocal for acute cholecystitis by sonographic evaluation and require correlation. - XR abdomen 04/20: Nonspecific bowel pattern. Assessment and plan: Abdominal pain - possibly 2/2 acute cholecystitis, possibly 2/2 duodenal diverticulosis - Presented to the ER with complaints of abdominal pain; associated with diarrhea - Currently patient reports abdominal distention. physical does not reveal any significant tenderness - No leukocytosis; mild lactic acidosis - c/w Zosyn for intra-abdominal source of infection (Day #2) - c/w NPO, IV fluids - MRI can not be performed (re: Pacemaker / Verified with MRI technicians) - HIDA scan pending - Managed by primary surgical team s/p Lactic acidosis - c/w IV fluid hydration Hypokalemia - Will supplement via PO and IV routes A. fib - s/p pacemaker implantation - c/w Flecainide and Bisoprolol - Not on full anticoagulation; currently on ASA 325 alone; will hold for possible surgery HTN - BP well controlled - c/w Bisoprolol, amlodipine DLP - c/w Atorvastatin Gastrointestinal prophylaxis - c/w Protonix IV BID DVT prophylaxis - c/w Heparin Disposition: - Awaiting HIDA scan VS,Fishbone, I+O VS, Fishbone, I+O Laboratory Tests 04/20/19 05:59 Red Blood Count 4.29 L, Mean Corpuscular Volume 88.3, Mean Corpuscular Hemoglobin 29.4, Mean Corpuscular Hemoglobin Concent 33.2, Red Cell Distribution Width 13.9, Neutrophils (%) (Auto) 86.3 H, Lymphocytes (%) (Auto) 3.7 L, Monocytes (%) (Auto) 9.1 H, Eosinophils (%) (Auto) 0.0, Basophils (%) (Auto) 0.1, Neutrophils # (Auto) 12.3 H, Lymphocytes # (Auto) 0.5 L, Monocytes # (Auto) 1.3 H, Eosinophils # (Auto) 0.0, Basophils # (Auto) 0.0, Calcium Level 8.3 L, Aspartate Amino Transf (AST/SGOT) 12, Alanine Aminotransferase (ALT/SGPT) 20, Alkaline Phosphatase 42 L, Total Bilirubin 1.1 #H, Total Protein 6.8, Albumin 3.1 L Vital Signs Date Time Temp Pulse Resp B/P (MAP) Pulse Ox O2 Delivery O2 Flow Rate FiO2 04/20/19 10:10 98.1 64 17 126/70 (88) 92 2.0 04/19/19 14:33 Room Air I&O- Last 24 Hours up to 6 AM 04/20/19 06:00 Intake Total 2800 ml Output Total 1200 ml Balance 1600 ml RYLEE LEMON MD Apr 20, 2019 11:25
[2019-04-20 11:31] LABS: LIPASE 217 U/L (73-393)
[2019-04-20 15:20] VITALS: BP 131/70
--- NOTE | 2019-04-20 16:11 | REP ---
Hepatobiliary scan: History: Question cholecystitis. Technique: 6.6 mCi of technetium 99m mebrofenin is injected and sequential anterior abdominal images are acquired. Scintigraphic findings: The initial hepatocellular phase of uptake is normal in the liver and homogeneous. Intra and extrahepatic bile ducts are labeled at 10 minutes along with a duodenal C-loop. Subsequent images demonstrate normal washout from the liver parenchyma into the small intestine. The gallbladder did not visualize during the first hour of sequential imaging. Two hour delayed scan images show absence of gallbladder visualization as well. This is suggestive of cystic duct obstruction and acute cholecystitis. Impression: Nonvisualization of the gallbladder. Findings consistent with cystic duct obstruction. Electronically Signed by Clif Martinez MD 04/20/2019 04:36 P
[2019-04-20 18:00] VITALS: BP 117/68
[2019-04-20] MEDS: amLODIPine 10 MG TAB PO SCH (21:00)
[2019-04-20] MEDS: DOXAZOSIN MESYLATE 4 MG TAB PO SCH (21:16)
[2019-04-20] MEDS: ATORVASTATIN 20 MG TAB PO SCH (21:16)
[2019-04-20 22:00] VITALS: BP 104/68
[2019-04-20] MEDS: zolPIDEM TARTRATE 5 MG TAB PO PRN (22:12)
[2019-04-21] MEDS: KCL 40MEQ in NS 1000ML 1,000 ML IV SCH ×3 (00:13→17:05)
[2019-04-21] MEDS: PERCOCET 5MG/325MG TAB PO PRN ×2 (01:23→10:58)
[2019-04-21 02:00] VITALS: BP 109/56
[2019-04-21] MEDS: PIPERACILLIN/TAZOBACTAM SOD 3.375 GM in D5W MINI-BAG PLUS 50 ML IV SCH ×4 (03:22→21:23)
[2019-04-21] MEDS: HEPARIN SOD (PORCINE) 5000 UNITS/ML VIAL SC SCH ×3 (04:47→21:23)
[2019-04-21] MEDS: KETOROLAC 30 MG/ML VIAL (J1885) IV SCH ×4 (04:48→22:52)
[2019-04-21 06:00] VITALS: BP 100/60
[2019-04-21 06:34] LABS: BASO % 0.3 % (0.0-1.0); EOS % 0.3 % (0.0-3.0); HEMATOCRIT 34.7 % (42.0-52.0); HEMOGLOBIN 11.6 g/dl (13.5-17.5); LYMPH # 0.6 10^3/uL (1.5-4.5); LYMPH % 5.5 % (24.0-44.0); MEAN CORPUSCULAR HEMOGLOBIN 30.9 pg (27.0-33.0); MEAN CORPUSCULAR HGB CONC 33.4 g/dl (32.0-36.5); MEAN CORPUSCULAR VOLUME 92.3 fl (80.0-96.0); MONO # 0.8 10^3/uL (0.0-0.8); MONO % 6.7 % (0.0-5.0); NEUTROPHILS # 9.9 10^3/uL (1.8-7.7); NEUTROPHILS % 85.1 % (36.0-66.0); PLATELET COUNT, AUTOMATED 124 10^3/uL (150-450); RED BLOOD COUNT 3.76 10^6/uL (4.30-6.10); WHITE BLOOD COUNT 11.7 10^3/uL (4.0-10.0)
[2019-04-21 07:07] LABS: ALBUMIN 2.5 GM/DL (3.2-5.2); ALT/SGPT 18 U/L (12-78); BILIRUBIN,TOTAL 0.9 MG/DL (0.2-1.0); BLOOD UREA NITROGEN 17 MG/DL (7-18); CALCIUM LEVEL 8.2 MG/DL (8.8-10.2); CARBON DIOXIDE LEVEL 26 MEQ/L (21-32); CHLORIDE LEVEL 110 MEQ/L (98-107); CREATININE FOR GFR 0.98 MG/DL (0.70-1.30); GLOMERULAR FILTRATION RATE > 60.0 (>49); GLUCOSE, FASTING 95 MG/DL (70-100); POTASSIUM SERUM 3.9 MEQ/L (3.5-5.1); SODIUM LEVEL 141 MEQ/L (136-145)
[2019-04-21] MEDS: FLUTICASONE PROP 0.05% NASAL SPRAY 16 GM (FLONASE) NARES SCH (07:46)
[2019-04-21] MEDS: SUCRALFATE 1 GM TAB PO SCH ×4 (07:46→21:22)
[2019-04-21] MEDS: FLECAINIDE 50MG TABLET PO SCH ×2 (07:47→21:21)
[2019-04-21] MEDS: PANTOPRAZOLE 40MG INJ (PROTONIX) (C9113) IV SCH ×2 (07:47→21:23)
[2019-04-21] MEDS: BISOPROLOL FUMARATE 5 MG TAB PO SCH (07:49)
[2019-04-21 10:00] VITALS: BP 130/75
[2019-04-21] MEDS ORDERED: SENNA 8.6 MG TAB (SENOKOT) PO ONE (10:00)
[2019-04-21] MEDS: DOCUSATE SODIUM 100 MG CAP PO SCH ×2 (10:24→21:21)
--- NOTE | 2019-04-21 11:39 | IPN ---
DATE: 04/20/2019 The patient's white count has bumped up to 14.2 overnight, the patient has become quite distended and he has not had any significant bowel movements, although he still has some flatus. He states that his abdominal pain is better than it was previously yesterday. However, his bilirubin has bumped minimally. PHYSICAL EXAMINATION: He is distended, tympanitic. Extremities: Warm, well-perfused. Lungs are clear. Heart is regular. He really has no abdominal tenderness per se. IMPRESSION AND PLAN: Issues at this time are with the slight elevation in the liver function tests, it could be that he has a common bile duct stone and that is why he has much more of a vague abdominal pain that is sort of in the deep abdominal cavity instead of specifically the typical just right upper quadrant pain tenderness. I would like to do an MRCP however, he has a pacemaker in place and I talked to Dr. Lorenzo and at this point it sounds as though we cannot proceed with a MRCP but we will proceed with a HIDA scan. MRCP would also better evaluate the duodenal area, especially if his duodenal diverticulum was not appreciated on the endoscopy, this may actually be some sort of localized perforation. At this point, with this developing ileus looking picture, it could be the possibility. In any case, we will obtain a HIDA scan first and we will see what is going on with that and depending on the findings then we can determine our next course of action.
--- NOTE | 2019-04-21 11:44 | IPN ---
DATE: 04/21/2019 Patient states that most of his abdominal pain has resolved and right now he states that his discomfort is mostly his arthritis. He states he takes hydrocodone at least three to four times a day and usually has a couple of [place]'s a day as well and is currently taking some pain medication, but states that overall his pain is not his major issue at this time. He has been afebrile and his white count has come down to 11.7 today. On his physical exam his abdomen is distended, tympanitic but without guarding, without rebound without peritoneal signs and truly does not really have a tender abdomen. Specifically, in the right upper quadrant he is not having any significant tenderness. However, his HIDA scan did show cystic duct obstruction. IMPRESSION AND PLAN: The patient most likely has cholecystitis with a localized ileus associated with this. At this point he has got significant enough distention that I feel with his distention performing a laparoscopic case would be extremely difficult and may not actually be enough intra-abdominal space to proceed with a laparoscopy. Thus given that his white counts better and his pain better, I do think that we should to try a nonoperative approach for now and will give him some IV fluids. I will also start him on some clear liquids given that he is feeling better and will see how he does with this. Will see how he does over the next 24-48 hours.
[2019-04-21 14:00] VITALS: BP 132/68
--- NOTE | 2019-04-21 14:20 | IPNPDOC ---
Subjective Date Seen The patient was seen on 04/21/19. Subjective Chief Complaint/HPI Patient seen and examined at the bedside. Reports that his abdominal pain has significantly improved this morning. Denies any complaints of nausea or diarrhea. Objective Physical Examination General Exam: Positive: Alert, Cooperative, No Acute Distress ENT Exam: Positive: Atraumatic, Mucous membr. moist/pink Neck Exam: Negative: JVD Chest Exam: Positive: Clear to auscultation, Normal air movement Heart Exam: Positive: Rate Normal, Normal S1, Normal S2 Abdomen Exam: Positive: Soft, Tenderness (mild tenderness to deep palpation in the right upper quadrant. No rebound tenderness, guarding, or rigidity noted.), Other (Distended) Extremity Exam: Negative: Tenderness, Swelling Psych Exam: Positive: Oriented x 3 Assessment /Plan Plan/VTE VTE Prophylaxis Ordered?: Yes Plan Abdominal pain 2/[address] Abd/pel notable for distended gallbladder and cholelithiasis Ultrasound of the gallbladder notable for mild wall thickening and evidence for acute cholecystitis HIDA scan consistent with cystic duct obstruction Managed by primary surgical team; patient currently undergoing conservative management with IV Zosyn. He has been started on a clear liquid diet today. No plans for surgery at this time. We will continue to follow up with surgical recommendations A. fib s/p pacemaker implantation Cont Flecainide and Bisoprolol Not on full anticoagulation; currently on ASA 325 alone; will hold for possible surgery HTN Cont Bisoprolol, amlodipine, doxazosin DLP Atorvastatin Gastrointestinal prophylaxis Protonix BID DVT prophylaxis Cont Heparin SC VS, I&O, 24H, Fishbone Vital Signs/I&O Vital Signs Date Time Temp Pulse Resp B/P (MAP) Pulse Ox O2 Delivery O2 Flow Rate FiO2 04/21/19 10:58 16 04/21/19 10:00 97.8 60 130/75 (93) 96 2.0 04/19/19 14:33 Room Air I&O- Last 24 Hours up to 6 AM 04/21/19 06:00 Intake Total 3100 ml Output Total 420 ml Balance 2680 ml Laboratory Data 24H LABS Laboratory Tests 2 04/21/19 06:13: Immature Granulocyte % (Auto) 2.1, White Blood Count 11.7H, Red Blood Count 3.76L, Hemoglobin 11.6L, Hematocrit 34.7L, Mean Corpuscular Volume 92.3, Mean C orpuscular Hemoglobin 30.9, Mean Corpuscular Hemoglobin Concent 33.4, Red Cell Distribution Width 13.9, Platelet Count 124L, Neutrophils (%) (Auto) 85.1H, Lymphocytes (%) (Auto) 5.5L, Monocytes (%) (Auto) 6.7H, Eosinophils (%) (Auto) 0.3, Basophils (%) (Auto) 0.3, Neutrophils # (Auto) 9.9H, Lymphocytes # (Auto) 0.6L, Monocytes # (Auto) 0.8, Eosinophils # (Auto) 0.0, Basophils # (Auto) 0.0, Nucleated Red Blood Cells % (auto) 0.0, Anion Gap 5L, Glomerular Filtration Rate > 60.0, Blood Urea Nitrogen 17, Creatinine 0.98, Sodium Level 141, Potassium Level 3.9#, Chloride Level 110H, Carbon Dioxide Level 26, Calcium Level 8.2L, Aspartate Amino Transf (AST/SGOT) 15, Alanine Aminotransferase (ALT/SGPT) 18, Alkaline Phosphatase 48, Total Bilirubin 0.9, Total Protein 6.0L, Albumin 2.5L, Magnesium Level 2.0, Albumin/Globulin Ratio 0.71L CBC/BMP Laboratory Tests 04/21/19 06:13 Red Blood Count 3.76 L, Mean Corpuscular Volume 92.3, Mean Corpuscular Hemoglobin 30.9, Mean Corpuscular Hemoglobin Concent 33.4, Red Cell Distribution Width 13.9, Neutrophils (%) (Auto) 85.1 H, Lymphocytes (%) (Auto) 5.5 L, Monocytes (%) (Auto) 6.7 H, Eosinophils (%) (Auto) 0.3, Basophils (%) (Auto) 0.3, Neutrophils # (Auto) 9.9 H, Lymphocytes # (Auto) 0.6 L, Monocytes # (Auto) 0.8, Eosinophils # (Auto) 0.0, Basophils # (Auto) 0.0, Calcium Level 8.2 L, Aspartate Amino Transf (AST/SGOT) 15, Alanine Aminotransferase (ALT/SGPT) 18, Alkaline Phosphatase 48, Total Bilirubin 0.9, Total Protein 6.0 L, Albumin 2.5 L NAYANA ABDI MD Apr 21, 2019 14:20
[2019-04-21] MEDS: ANEXSIA, NORCO 7.5MG/325MG TABLET(HYDROCODONE/APAP) PO PRN ×2 (15:29→21:23)
[2019-04-21 18:00] VITALS: BP 125/70
[2019-04-21] MEDS: ATORVASTATIN 20 MG TAB PO SCH (21:21)
[2019-04-21] MEDS: DOXAZOSIN MESYLATE 4 MG TAB PO SCH (21:22)
[2019-04-21] MEDS: amLODIPine 10 MG TAB PO SCH (21:22)
[2019-04-21 22:00] VITALS: BP 141/80
[2019-04-22] VITALS (7 sets, daily range): BP systolic 120–144; BP diastolic 65–88
[2019-04-22] MEDS: MORPHINE 4 MG/ML 1ML VIAL/SYRINGE (J2270) IV PRN ×2 (01:47→21:32)
[2019-04-22] MEDS: KCL 40MEQ in NS 1000ML 1,000 ML IV SCH ×3 (03:21→13:59)
[2019-04-22] MEDS ORDERED: ACETAMINOPHEN TAB 650MG DOSE (2X325MG) PO PRN (03:45)
[2019-04-22] MEDS: PIPERACILLIN/TAZOBACTAM SOD 3.375 GM in D5W MINI-BAG PLUS 50 ML IV SCH ×4 (03:48→21:31)
[2019-04-22] MEDS: ANEXSIA, NORCO 7.5MG/325MG TABLET(HYDROCODONE/APAP) PO PRN ×4 (03:48→23:38)
[2019-04-22] MEDS: HEPARIN SOD (PORCINE) 5000 UNITS/ML VIAL SC SCH ×3 (06:06→21:32)
[2019-04-22] MEDS: KETOROLAC 30 MG/ML VIAL (J1885) IV SCH ×4 (06:07→23:06)
[2019-04-22 06:52] LABS: BASO % 0.2 % (0.0-1.0); EOS % 0.3 % (0.0-3.0); HEMATOCRIT 35.2 % (42.0-52.0); HEMOGLOBIN 11.8 g/dl (13.5-17.5); LYMPH # 0.4 10^3/uL (1.5-4.5); LYMPH % 4.4 % (24.0-44.0); MEAN CORPUSCULAR HEMOGLOBIN 30.5 pg (27.0-33.0); MEAN CORPUSCULAR HGB CONC 33.5 g/dl (32.0-36.5); MONO # 0.7 10^3/uL (0.0-0.8); MONO % 6.6 % (0.0-5.0); NEUTROPHILS # 8.8 10^3/uL (1.8-7.7); NEUTROPHILS % 87.2 % (36.0-66.0); PLATELET COUNT, AUTOMATED 126 10^3/uL (150-450); RED BLOOD COUNT 3.87 10^6/uL (4.30-6.10); WHITE BLOOD COUNT 10.1 10^3/uL (4.0-10.0)
[2019-04-22 07:17] LABS: ALBUMIN 2.4 GM/DL (3.2-5.2); ALT/SGPT 21 U/L (12-78); BILIRUBIN,TOTAL 0.8 MG/DL (0.2-1.0); BLOOD UREA NITROGEN 12 MG/DL (7-18); CALCIUM LEVEL 7.5 MG/DL (8.8-10.2); CARBON DIOXIDE LEVEL 21 MEQ/L (21-32); CHLORIDE LEVEL 111 MEQ/L (98-107); CREATININE FOR GFR 0.77 MG/DL (0.70-1.30); GLOMERULAR FILTRATION RATE > 60.0 (>49); GLUCOSE, FASTING 99 MG/DL (70-100); MAGNESIUM LEVEL 1.8 MG/DL (1.8-2.4); POTASSIUM SERUM 4.1 MEQ/L (3.5-5.1); SODIUM LEVEL 141 MEQ/L (136-145); TOTAL PROTEIN 5.4 GM/DL (6.4-8.2)
[2019-04-22] MEDS: SUCRALFATE 1 GM TAB PO SCH ×2 (07:37→11:54)
[2019-04-22] MEDS: FLUTICASONE PROP 0.05% NASAL SPRAY 16 GM (FLONASE) NARES SCH (08:18)
[2019-04-22] MEDS: PANTOPRAZOLE 40MG INJ (PROTONIX) (C9113) IV SCH ×2 (08:18→21:32)
[2019-04-22] MEDS: DOCUSATE SODIUM 100 MG CAP PO SCH ×2 (08:19→21:00)
[2019-04-22] MEDS: BISOPROLOL FUMARATE 5 MG TAB PO SCH (08:21)
[2019-04-22] MEDS: FLECAINIDE 50MG TABLET PO SCH ×2 (09:39→21:34)
--- NOTE | 2019-04-22 11:28 | IPNPDOC ---
Subjective Date Seen The patient was seen on 04/22/19. Subjective Chief Complaint/HPI Patient seen and examined at the bedside. He was noted to be febrile early this morning, but notes that it was because the temperature in the room was too hot, and he otherwise felt fine. Denies any complaints of nausea, vomiting, abdominal pain, or any diarrhea. Objective Physical Examination General Exam: Positive: Alert, Cooperative, No Acute Distress ENT Exam: Positive: Atraumatic, Mucous membr. moist/pink Neck Exam: Negative: JVD Chest Exam: Positive: Clear to auscultation, Normal air movement Heart Exam: Positive: Rate Normal, Normal S1, Normal S2 Abdomen Exam: Positive: Soft, Other (Distended); Negative: Tenderness Extremity Exam: Negative: Tenderness, Swelling Psych Exam: Positive: Oriented x 3 Assessment /Plan Plan/VTE VTE Prophylaxis Ordered?: Yes Plan Abdominal pain 2/[address] Abd/pel notable for distended gallbladder and cholelithiasis Ultrasound of the gallbladder notable for mild wall thickening and evidence for acute cholecystitis HIDA scan consistent with cystic duct obstruction Managed by primary surgical team; patient currently undergoing conservative management with IV Zosyn. He has tolerated a clear liquid diet without any acute complaints. He did have an episode of fever early this morning, however denies any acute complaints of abdominal pain/discomfort, nausea or vomiting. The patient's white blood cell count continues to improve. We will continue to follow up with surgical recommendations A. fib s/p pacemaker implantation Cont Flecainide and Bisoprolol Not on full anticoagulation; currently on ASA 325 alone; will hold for possible surgery HTN Cont Bisoprolol, amlodipine, doxazosin DLP Atorvastatin Gastrointestinal prophylaxis Protonix BID DVT prophylaxis Cont Heparin SC VS, I&O, 24H, Fishbone Vital Signs/I&O Vital Signs Date Time Temp Pulse Resp B/P (MAP) Pulse Ox O2 Delivery O2 Flow Rate FiO2 04/22/19 10:26 18 04/22/19 10:00 98.9 70 135/73 (93) 92 04/21/19 14:00 2.0 04/19/19 14:33 Room Air I&O- Last 24 Hours up to 6 AM 04/22/19 06:00 Intake Total 5140 ml Balance 5140 ml Laboratory Data 24H LABS Laboratory Tests 2 04/22/19 06:29: Immature Granulocyte % (Auto) 1.3, White Blood Count 10.1H, Red Blood Count 3.87L, Hemoglobin 11.8L, Hematocrit 35.2L, Mean Corpuscular Volume 91.0, Mean Corpuscular Hemoglobin 30.5, Mean Corpuscular Hemoglobin Concent 33.5, Red Cell Distribution Width 14.1, Platelet Count 126L, Neutrophils (%) (Auto) 87.2H, Lymphocytes (%) (Auto) 4.4L, Monocytes (%) (Auto) 6.6H, Eosinophils (%) (Auto) 0.3, Basophils (%) (Auto) 0.2, Neutrophils # (Auto) 8.8H, Lymphocytes # (Auto) 0.4L, Monocytes # (Auto) 0.7, Eosinophils # (Auto) 0.0, Basophils # (Auto) 0.0, Nucleated Red Blood Cells % (auto) 0.0, Anion Gap 9, Glomerular Filtration Rate > 60.0, Blood Urea Nitrogen 12, Creatinine 0.77, Sodium Level 141, Potassium Level 4.1, Chloride Level 111H, Carbon Dioxide Level 21, Calcium Level 7.5L, Aspartate Amino Transf (AST/SGOT) 23, Alanine Aminotransferase (ALT/SGPT) 21, Alkaline Phosphatase 59, Total Bilirubin 0.8, Total Protein 5.4L, Albumin 2.4L, Magnesium Level 1.8, Albumin/Globulin Ratio 0.80L CBC/BMP Laboratory Tests 04/22/19 06:29 Red Blood Count 3.87 L, Mean Corpuscular Volume 91.0, Mean Corpuscular Hemoglobin 30.5, Mean Corpuscular Hemoglobin Concent 33.5, Red Cell Distribution Width 14.1, Neutrophils (%) (Auto) 87.2 H, Lymphocytes (%) (Auto) 4.4 L, Monocytes (%) (Auto) 6.6 H, Eosinophils (%) (Auto) 0.3, Basophils (%) (Auto) 0.2, Neutrophils # (Auto) 8.8 H, Lymphocytes # (Auto) 0.4 L, Monocytes # (Auto) 0.7, Eosinophils # (Auto) 0.0, Basophils # (Auto) 0.0, Calcium Level 7.5 L, Aspartate Amino Transf (AST/SGOT) 23, Alanine Aminotransferase (ALT/SGPT) 21, Alkaline Phosphatase 59, Total Bilirubin 0.8, Total Protein 5.4 L, Albumin 2.4 L Microbiology Microbiology 04/22/19 Blood Culture, Received Pending NAYANA ABDI MD Apr 22, 2019 11:28
--- NOTE | 2019-04-22 17:20 | IPNPDOC ---
Subjective General Date/Time Seen The patient was seen on 04/22/19 at 17:16. Subject Chief Complaint/History The patient is a 68-year-old male admitted with a reason for visit of Abdominal Pain. Patient seen this evening. He had a febrile episodes early this morning but the febrile in the afternoon in during the day. He reports no abdominal discomfort. He denies a nausea or vomiting. He has been on full liquids. Current Medications Current Medications Current Medications Acetaminophen (Tylenol Tab) 650 mg Q4HP PRN PO PAIN OR FEVER; Start 04/22/19 at 03:45 Acetaminophen/ Hydrocodone Bitart (Anexsia, [place] 7.5mg/325mg) 1 tab QID PRN PO PAIN Last administered on 04/22/19at 17:11; Start 04/21/19 at 11:15 Amlodipine Besylate (Norvasc) 10 mg QHS PO Last administered on 04/21/19 21:22; Start 04/19/19 at 21:00 Atorvastatin Calcium (Lipitor) 40 mg QHS PO Last administered on 04/21/19 21:21; Start 04/19/19 at 21:00 Bisoprolol Fumarate (Zebeta) 5 mg DAILY PO ; Start 04/19/19 at 09:00; Status Cancel Bisoprolol Fumarate (Zebeta) 5 mg DAILY PO Last administered on 04/22/19 08:21; Start 04/20/19 at 09:00 Docusate Sodium (Colace) 200 mg BID PO Last administered on 04/21/19 21:21; Start 04/21/19 at 09:00 Doxazosin Mesylate (Cardura) 4 mg QHS PO Last administered on 04/21/19 21:22; Start 04/19/19 at 21:00 Flecainide Acetate (Tambocor) 100 mg BID PO Last administered on 04/22/19 09:39; Start 04/19/19 at 09:00 Fluticasone Propionate (Flonase 0.05% Nasal [place]) 2 SPRAYS IN EACH NOSTRIL DAILY NARES Last administered on 04/22/19 08:18; Start 04/20/19 at 09:00 Heparin Sodium (Porcine) (Heparin) 5,000 units Q8H SC Last administered on 04/22/19at 13:59; Start 04/19/19 at 14:00 Home Med (Med Rec Complete!) ASDIRECTED XX ; Start 04/19/19 at 09:00; Stop 04/19/19 at 09:00; Status DC Hydromorphone HCl (Dilaudid) 0.5 mg Q30M PRN IV MODERATE PAIN (PS 5-7) Last administered on 04/19/19at 05:27; Start 04/19/19 at 02:45; Stop 04/19/19 at 05:27; Status DC Ketorolac Tromethamine (ToRADol) 30 mg Q6H IV Last administered on 04/22/19at 17:10; Start 04/20/19 at 11:00; Stop 04/25/19 at 10:59 Metoclopramide HCl (REGLAN INJection) 10 mg Q6HP PRN IV NAUSEA OR VOMITING; Start 04/19/19 at 12:45 Morphine Sulfate (Morphine Sulfate Inj) 3 mg Q3HP PRN IV SEVERE PAIN (PS 8-10) Last administered on 04/22/19at 01:47; Start 04/19/19 at 12:30 Morphine Sulfate (Morphine Sulfate Inj) 4 mg Q2HP PRN IV SEVERE PAIN (PS 8-10); Start 04/19/19 at 12:45 Morphine Sulfate (Morphine Sulfate Inj) 4 mg Q30M PRN IV SEVERE PAIN (PS 8-10) Last administered on 04/19/19at 08:29; Start 04/19/19 at 01:30; Stop 04/19/19 at 08:29; Status DC Ondansetron HCl (ZOFRAN INJection) 4 mg Q6HP PRN IV NAUSEA OR VOMITING; Start 04/19/19 at 12:45 Oxycodone/ Acetaminophen (Percocet 5mg/ 325mg Tablet) 1 tab Q4HP PRN PO MODERATE PAIN (PS 5-7) Last administered on 04/21/19at 10:58; Start 04/19/19 at 12:45; Stop 04/21/19 at 11:13; Status DC Oxycodone/ Acetaminophen (Percocet 5mg/ 325mg Tablet) 2 tab Q6HP PRN PO SEVERE PAIN (PS 8-10); Start 04/19/19 at 12:45; Stop 04/21/19 at 11:13; Status DC Pantoprazole Sodium (Protonix) 40 mg BID IV Last administered on 04/22/19 08:18; Start 04/19/19 at 21:00 Pantoprazole Sodium (Protonix) 40 mg DAILY IV Last administered on 04/19/19at 12 :40; Start 04/19/19 at 09:00; Stop 04/19/19 at 12:47; Status DC Piperacillin Sod/ Tazobactam Sod 3.375 gm/Dextrose 50 ml @ 50 mls/hr Q6H IV ; Start 04/19/19 at 13:00; Status Cancel Piperacillin Sod/ Tazobactam Sod 3.375 gm/Dextrose 50 ml @ 50 mls/hr Q6H IV Last administered on 04/22/19at 16:06; Start 04/19/19 at 16:00 Potassium Chloride/Sodium Chloride 1,000 ml @ 125 mls/hr Q8H IV Last adminis tered on 04/22/19at 13:59; Start 04/20/19 at 07:18 Simethicone (Mylicon) 120 mg QIDP PO ; Start 04/20/19 at 09:00; Stop 04/20/19 at 09:00; Status DC Simethicone (Mylicon) 120 mg QIDP PRN PO GAS PAIN Last administered on 04/22/19 14:03; Start 04/20/19 at 09:00 Sodium Chloride 1,000 ml @ 125 mls/hr Q8H IV Last administered on 04/19/19 22:18; Start 04/19/19 at 12:34; Stop 04/20/19 at 07:18; Status DC Sodium Chloride 1,000 ml @ 150 mls/hr Q6H40M IV Last administered on 04/19/19at 07:56; Start 04/19/19 at 07:27; Stop 04/19/19 at 12:44; Status DC Sucralfate (Carafate) 1 gm ACHS PO Last administered on 04/22/19at 11:54; Start 04/19/19 at 12:45; Stop 04/22/19 at 12:34; Status DC Zolpidem Tartrate (Ambien) 10 mg QHS PRN PO FOR SLEEP Last administered on 04/20/19at 22:12; Start 04/20/19 at 22:00 Allergies Coded Allergies: lisinopril (Verified Allergy, Severe, FACIAL SWELLING, 04/19/19) clarithromycin (Verified Allergy, Intermediate, HIVES, 04/19/19) Objective Physical Examination Examination GENERAL APPEARANCE: Comfortable. SKIN: Warm and dry. HEENT: Normocephalic, atraumatic. Mild pale palpebral conjunctiva, anicteric sclerae. Lips and mucosa appear moist. NECK: Supple, no thyromegaly. No obvious jugular venous distention. LUNGS: Clear to auscultation bilaterally. No wheezing appreciated. HEART: No chest wall abnormalities. Regular rate and rhythm with no murmurs appreciated. ABDOMEN: Abdomen is round, soft, moderately rounded and protuberant abdomen, minimally distended. Nontender on palpation over the right subcostal area. EXTREMITIES: No edema. Vital Signs Vital Signs Date Time Temp Pulse Resp B/P (MAP) Pulse Ox O2 Delivery O2 Flow Rate FiO2 04/22/19 17:11 18 04/22/19 14:00 97.4 60 123/67 (85) 94 04/21/19 14:00 2.0 04/19/19 14:33 Room Air I&Os I&O- Last 24 Hours up to 6 AM 04/22/19 06:00 Intake Total 5140 ml Balance 5140 ml Laboratory Data Labs 24H Laboratory Tests 2 04/22/19 06:29: Immature Granulocyte % (Auto) 1.3, White Blood Count 10.1H, Red Blood Count 3.87L, Hemoglobin 11.8L, Hematocrit 35.2L, Mean Corpuscular Volume 91.0, Mean Corpuscular Hemoglobin 30.5, Mean Corpuscular Hemoglobin Concent 33.5, Red Cell Distribution Width 14.1, Platelet Count 126L, Neutrophils (%) (Auto) 87.2H, Lymphocytes (%) (Auto) 4.4L, Monocytes (%) (Auto) 6.6H, Eosinophils (%) (Auto) 0.3, Basophils (%) (Auto) 0.2, Neutrophils # (Auto) 8.8H, Lymphocytes # (Auto) 0.4L, Monocytes # (Auto) 0.7, Eosinophils # (Auto) 0.0, Basophils # (Auto) 0.0, Nucleated Red Blood Cells % (auto) 0.0, Anion Gap 9, Glomerular Filtration Rate > 60.0, Blood Urea Nitrogen 12, Creatinine 0.77, Sodium Level 141, Potassium Level 4.1, Chloride Level 111H, Carbon Dioxide Level 21, Calcium Level 7.5L, Aspartate Amino Transf (AST/SGOT) 23, Alanine Aminotransferase (ALT/SGPT) 21, Alkaline Phosphatase 59, Total Bilirubin 0.8, Total Protein 5.4L, Albumin 2.4L, Magnesium Level 1.8, Albumin/Globulin Ratio 0.80L CBC/BMP Laboratory Tests 04/22/19 06:29 Red Blood Count 3.87 L, Mean Corpuscular Volume 91.0, Mean Corpuscular Hemoglobin 30.5, Mean Corpuscular Hemoglobin Concent 33.5, Red Cell Distribution Width 14.1, Neutrophils (%) (Auto) 87.2 H, Lymphocytes (%) (Auto) 4.4 L, Monocytes (%) (Auto) 6.6 H, Eosinophils (%) (Auto) 0.3, Basophils (%) (Auto) 0.2, Neutrophils # (Auto) 8.8 H, Lymphocytes # (Auto) 0.4 L, Monocytes # (Auto) 0.7, Eosinophils # (Auto) 0.0, Basophils # (Auto) 0.0, Calcium Level 7.5 L, Aspartate Amino Transf (AST/SGOT) 23, Alanine Aminotransferase (ALT/SGPT) 21, Alkaline Phosphatase 59, Total Bilirubin 0.8, Total Protein 5.4 L, Albumin 2.4 L Microbiology Microbiology 04/22/19 Blood Culture, Received Pending Impression Acute cholecystitis Clinically patient looks well. He is tolerating liquids. He did have febrile episodes early this morning. His white cell count continues to trend down. I will continue to keep him the hospital with IV antibiotics. I think he is comfortable enough that he could tolerate solid foods. I offered to advance him to a soft low fat diet. He would like to wait until tomorrow to try. Plan / VTE VTE Prophylaxis Ordered?: Yes HEMANTH LAYTON MD Apr 22, 2019 17:19
[2019-04-22] MEDS: ATORVASTATIN 20 MG TAB PO SCH (21:33)
[2019-04-22] MEDS: DOXAZOSIN MESYLATE 4 MG TAB PO SCH (21:33)
[2019-04-22] MEDS: amLODIPine 10 MG TAB PO SCH (21:33)
[2019-04-23] VITALS (10 sets, daily range): BP systolic 110–158; BP diastolic 66–83
[2019-04-23] MEDS ORDERED: IPRATROPIUM 0.5MG/ALBUTEROL 2.5MG INH SOL UD 3ML (DUONEB)(J7620) NEB PRN (00:45)
[2019-04-23] MEDS: KCL 40MEQ in NS 1000ML 1,000 ML IV SCH ×2 (01:30→18:45)
[2019-04-23] MEDS: zolPIDEM TARTRATE 5 MG TAB PO PRN (01:30)
--- NOTE | 2019-04-23 04:14 | REPVR ---
EXAM: XR Chest, 1 View EXAM DATE/TIME: 04/23/2019 1:18 AM CLINICAL HISTORY: 68 years old, male; Pain; Other: SOB TECHNIQUE: Imaging protocol: XR of the chest, 1 view. COMPARISON: CR Chest, 2 view PA, Lat 07/10/2012 11:52 AM FINDINGS: Lungs: Bibasilar linear atelectasis. No focal consolidation. Pleural space: Unremarkable. No pleural effusion. No pneumothorax. Heart/Mediastinum: Stable cardiomegaly. Bones/joints: Unremarkable. Other findings: Stable left pacer. IMPRESSION: No acute finding. Electronically signed by: Myrna Echeverria On 04/23/2019 04:14:32 AM
[2019-04-23] MEDS: KETOROLAC 30 MG/ML VIAL (J1885) IV SCH (04:43)
[2019-04-23] MEDS: PIPERACILLIN/TAZOBACTAM SOD 3.375 GM in D5W MINI-BAG PLUS 50 ML IV SCH ×4 (04:43→22:55)
[2019-04-23] MEDS: HEPARIN SOD (PORCINE) 5000 UNITS/ML VIAL SC SCH (06:09)
[2019-04-23 06:55] LABS: HEMATOCRIT 34.2 % (42.0-52.0); HEMOGLOBIN 11.3 g/dl (13.5-17.5); MEAN CORPUSCULAR HEMOGLOBIN 30.1 pg (27.0-33.0); PLATELET COUNT, AUTOMATED 127 10^3/uL (150-450); RED BLOOD COUNT 3.76 10^6/uL (4.30-6.10); WHITE BLOOD COUNT 10.6 10^3/uL (4.0-10.0)
[2019-04-23 06:57] LABS: ALBUMIN 2.1 GM/DL (3.2-5.2); ALT/SGPT 36 U/L (12-78); BILIRUBIN,TOTAL 0.6 MG/DL (0.2-1.0); BLOOD UREA NITROGEN 12 MG/DL (7-18); CALCIUM LEVEL 8.1 MG/DL (8.8-10.2); CARBON DIOXIDE LEVEL 21 MEQ/L (21-32); CHLORIDE LEVEL 111 MEQ/L (98-107); CREATININE FOR GFR 0.84 MG/DL (0.70-1.30); GLOMERULAR FILTRATION RATE > 60.0 (>49); GLUCOSE, FASTING 97 MG/DL (70-100); MAGNESIUM LEVEL 1.9 MG/DL (1.8-2.4); SODIUM LEVEL 139 MEQ/L (136-145)
[2019-04-23 08:02] LABS: LYMPHOCYTES 6 % (16-52); NEUTROPHILS 92 % (35-75); PLATELET ESTIMATE DECREASED (NORMAL)
[2019-04-23 08:03] LABS: ANISOCYTOSIS 1+
[2019-04-23] MEDS ORDERED: ISOVUE-370 76% 100ML VIAL (Q9967) As Ordered ONE (08:04)
[2019-04-23 08:11] LABS: HEMATOCRIT 38.4 % (42.0-52.0); HEMOGLOBIN 12.8 g/dl (13.5-17.5); MEAN CORPUSCULAR HEMOGLOBIN 30.4 pg (27.0-33.0); MEAN CORPUSCULAR HGB CONC 33.3 g/dl (32.0-36.5); MEAN CORPUSCULAR VOLUME 91.2 fl (80.0-96.0); PLATELET COUNT, AUTOMATED 117 10^3/uL (150-450); RED BLOOD COUNT 4.21 10^6/uL (4.30-6.10); WHITE BLOOD COUNT 3.8 10^3/uL (4.0-10.0)
[2019-04-23] MEDS: GASTROGRAFIN SOLUTION 30ML PO SCH ×2 (08:15→08:45)
[2019-04-23 08:24] LABS: ALBUMIN 2.4 GM/DL (3.2-5.2); ALT/SGPT 42 U/L (12-78); BILIRUBIN,DIRECT 0.4 MG/DL (0.0-0.2); BILIRUBIN,TOTAL 0.8 MG/DL (0.2-1.0); BLOOD UREA NITROGEN 12 MG/DL (7-18); CALCIUM LEVEL 8.6 MG/DL (8.8-10.2); CARBON DIOXIDE LEVEL 19 MEQ/L (21-32); CHLORIDE LEVEL 109 MEQ/L (98-107); CREATININE FOR GFR 0.91 MG/DL (0.70-1.30); GLOMERULAR FILTRATION RATE > 60.0 (>49); GLUCOSE, FASTING 100 MG/DL (70-100); SODIUM LEVEL 137 MEQ/L (136-145); TOTAL PROTEIN 6.7 GM/DL (6.4-8.2)
[2019-04-23] MEDS: DOCUSATE SODIUM 100 MG CAP PO SCH ×2 (09:00→20:33)
--- NOTE | 2019-04-23 09:12 | IPNPDOC ---
Subjective General Date/Time Seen The patient was seen on 04/23/19 at 09:05. Subject Chief Complaint/History The patient is a 68-year-old male admitted with a reason for visit of Abdominal Pain. A rapid response alert was called on the patient currently is morning. He is noted to be to keep neck with rest. In the 40s, febrile to 104. He is now transferred to the ICU. His blood culture has grown gram-negative rods. He still does not complain much of abdominal pain but looks very distended. A CT scan of chest abdomen and pelvis has been done prior to his transfer to the ICU. Have examined him in the ICU. Current Medications Current Medications Current Medications Acetaminophen (Tylenol Tab) 650 mg Q4HP PRN PO PAIN OR FEVER Last administered on 04/23/19at 07:44; Start 04/22/19 at 03:45 Acetaminophen/ Hydrocodone Bitart (Anexsia, Tropic 7.5mg/325mg) 1 tab QID PRN PO PAIN Last administered on 04/22/19at 23:38; Start 04/21/19 at 11:15 Albuterol/ Ipratropium (Duoneb (Ipr 0.5mg/Alb 2.5mg)) 3 ml Q2HP PRN NEB SOB/WHEEZING Last administered on 04/23/19at 07:43; Start 04/23/19 at 00:45 Amlodipine Besylate (Norvasc) 10 mg QHS PO Last administered on 04/22/19at 21:33; Start 04/19/19 at 21:00; Stop 04/23/19 at 07:56; Status DC Atorvastatin Calcium (Lipitor) 40 mg QHS PO Last administered on 04/22/19at 21:33; Start 04/19/19 at 21:00 Bisoprolol Fumarate (Zebeta) 5 mg DAILY PO ; Start 04/19/19 at 09:00; Status Cancel Bisoprolol Fumarate (Zebeta) 5 mg DAILY PO Last administered on 04/22/19at 08:21; Start 04/20/19 at 09:00; Stop 04/23/19 at 07:56; Status DC Diatrizoate Meglum/ Diatrizoate Sod (Gastrografin) 10 ml Q30M PO ; Start 04/23/19 at 08:15; Stop 04/23/19 at 08:46; Status DC Docusate Sodium (Colace) 200 mg BID PO Last administered on 04/21/19 21:21; Start 04/21/19 at 09:00 Doxazosin Mesylate (Cardura) 4 mg QHS PO Last administered on 04/22/19at 21:33; Start 04/19/19 at 21:00; Stop 04/23/19 at 07:52; Status DC Flecainide Acetate (Tambocor) 100 mg BID PO Last administered on 04/22/19 21:34; Start 04/19/19 at 09:00 Fluticasone Propionate (Flonase 0.05% Nasal Oto) 2 SPRAYS IN EACH NOSTRIL DAILY NARES Last administered on 04/22/19 08:18; Start 04/20/19 at 09:00 Heparin Sodium (Porcine) (Heparin) 5,000 units Q8H SC Last administered on 04/23/19 06:09; Start 04/19/19 at 14:00; Stop 04/23/19 at 07:52; Status DC Home Med (Med Rec Complete!) ASDIRECTED XX ; Start 04/19/19 at 09:00; Stop 04/19/19 at 09:00; Status DC Hydromorphone HCl (Dilaudid) 0.5 mg Q30M PRN IV MODERATE PAIN (PS 5-7) Last administered on 04/19/19 05:27; Start 04/19/19 at 02:45; Stop 04/19/19 at 05:27; Status DC Ketorolac Tromethamine (ToRADol) 30 mg Q6H IV Last administered on 04/23/19at 04:43; Start 04/20/19 at 11:00; Stop 04/23/19 at 07:52; Status DC Metoclopramide HCl (REGLAN INJection) 10 mg Q6HP PRN IV NAUSEA OR VOMITING; Start 04/19/19 at 12:45; Stop 04/23/19 at 07:52; Status DC Morphine Sulfate (Morphine Sulfate Inj) 3 mg Q3HP PRN IV SEVERE PAIN (PS 8-10) Last administered on 04/22/19at 21:32; Start 04/19/19 at 12:30 Morphine Sulfate (Morphine Sulfate Inj) 4 mg Q2HP PRN IV SEVERE PAIN (PS 8-10); Start 04/19/19 at 12:45 Morphine Sulfate (Morphine Sulfate Inj) 4 mg Q30M PRN IV SEVERE PAIN (PS 8-10) Last administered on 04/19/19at 08:29; Start 04/19/19 at 01:30; Stop 04/19/19 at 08:29; Status DC Ondansetron HCl (ZOFRAN INJection) 4 mg Q6HP PRN IV NAUSEA OR VOMITING; Start 04/19/19 at 12:45 Oxycodone/ Acetaminophen (Percocet 5mg/ 325mg Tablet) 1 tab Q4HP PRN PO MODERATE PAIN (PS 5-7) Last administered on 04/21/19at 10:58; Start 04/19/19 at 12:45; Stop 04/21/19 at 11:13; Status DC Oxycodone/ Acetaminophen (Percocet 5mg/ 325mg Tablet) 2 tab Q6HP PRN PO SEVERE PAIN (PS 8-10); Start 04/19/19 at 12:45; Stop 04/21/19 at 11:13; Status DC Pantoprazole Sodium (Protonix) 40 mg BID IV Last administered on 04/22/19at 21:32; Start 04/19/19 at 21:00 Pantoprazole Sodium (Protonix) 40 mg DAILY IV Last administered on 04/19/19at 12:40; Start 04/19/19 at 09:00; Stop 04/19/19 at 12:47; Status DC Piperacillin Sod/ Tazobactam Sod 3.375 gm/Dextrose 50 ml @ 50 mls/hr Q6H IV ; Start 04/19/19 at 13:00; Status Cancel Piperacillin Sod/ Tazobactam Sod 3.375 gm/Dextrose 50 ml @ 50 mls/hr Q6H IV Last administered on 04/23/19at 04:43; Start 04/19/19 at 16:00 Potassium Chloride/Sodium Chloride 1,000 ml @ 125 mls/hr Q8H IV Last administ ered on 04/23/19at 01:30; Start 04/20/19 at 07:18 Simethicone (Mylicon) 120 mg QIDP PO ; Start 04/20/19 at 09:00; Stop 04/20/19 at 09:00; Status DC Simethicone (Mylicon) 120 mg QIDP PRN PO GAS PAIN Last administered on 04/22/19at 14:03; Start 04/20/19 at 09:00; Stop 04/23/19 at 07:52; Status DC Sodium Chloride 1,000 ml @ 125 mls/hr Q8H IV Last administered on 04/19/19at 22:18; Start 04/19/19 at 12:34; Stop 04/20/19 at 07:18; Status DC Sodium Chloride 1,000 ml @ 150 mls/hr Q6H40M IV Last administered on 04/19/19at 07:56; Start 04/19/19 at 07:27; Stop 04/19/19 at 12:44; Status DC Sucralfate (Carafate) 1 gm ACHS PO Last administered on 04/22/19at 11:54; Start 04/19/19 at 12:45; Stop 04/22/19 at 12:34; Status DC Zolpidem Tartrate (Ambien) 10 mg QHS PRN PO FOR SLEEP Last administered on 04/23/19at 01:30; Start 04/20/19 at 22:00; Stop 04/23/19 at 07:52; Status DC Allergies Coded Allergies: lisinopril (Verified Allergy, Severe, FACIAL SWELLING, 04/19/19) clarithromycin (Verified Allergy, Intermediate, HIVES, 04/19/19) Objective Physical Examination Examination GENERAL APPEARANCE: Patient is awake, mildly confused in terms of time but oriented to person and circumflex on since of his hospitalization. Looks mildly uncomfortable, short of breath, rapid breathing. SKIN: Warm and dry. HEENT: Lips are dry. NECK: Short supple neck. No obvious true venous distention. There is another concern on the prominent shoulder/neck fat pad this vicious if this is the subcutaneous emphysema, did not feel like that to me. LUNGS: Respiratory rate in the mid 30s, short breaths, no wheezing. HEART: Rate is high 90s to low 100s. Rhythm is regular ABDOMEN: Abdomen is more prominently distended, soft, and tympanitic to percussion, quiet. Very minimal tenderness on deep palpation only over the right upper quadrant area. EXTREMITIES: No edema. Vital Signs Vital Signs Date Time Temp Pulse Resp B/P (MAP) Pulse Ox O2 Delivery O2 Flow Rate FiO2 04/23/19 08:59 2.0 6/29/19 08:48 104.6 86 23 137/69 (91) 91 04/19/19 14:33 Room Air I&Os I&O- Last 24 Hours up to 6 AM 04/23/19 05:59 Intake Total 5160 ml Balance 5160 ml Laboratory Data Labs 24H Laboratory Tests 2 04/23/19 05:59: Nucleated Red Blood Cells % (auto) 0.0, Neutrophils 92H, Band Neutrophils 2, Lymphocytes (Manual) 6L, Platelet Estimate DECREASED, Anisocytosis 1+, Anion Gap 7L, Glomerular Filtration Rate > 60.0, Blood Urea Nitrogen 12, Creatinine 0.84, Sodium Level 139, Potassium Level 4.0, Chloride Level 111H, Carbon Dioxide Level 21, Calcium Level 8.1L, Aspartate Amino Transf (AST/SGOT) 37, Alanine Aminotransferase (ALT/SGPT) 36, Alkaline Phosphatase 87, Total Bilirubin 0.6, Total Protein 6.0L, Albumin 2.1L, Magnesium Level 1.9, Albumin/Globulin Ratio 0.54L 04/23/19 07:39: Bedside Glucose (Misc Panel) 101 04/23/19 07:48: Nucleated Red Blood Cells % (auto) 0.0, Anion Gap 9, Glomerular Filtration Rate > 60.0, Calcium Level 8.6L, Aspartate Amino Transf (AST/SGOT) 43H, Alanine Aminotransferase (ALT/SGPT) 42, Alkaline Phosphatase 120H, Total Bilirubin 0.8, Total Protein 6.7, Albumin 2.4L, Albumin/Globulin Ratio 0.56L, Lactic Acid Level 2.3*H, Direct Bilirubin 0.4H CBC/BMP Laboratory Tests 04/23/19 05:59 Red Blood Count 3.76 L, Mean Corpuscular Volume 91.0, Mean Corpuscular Hemoglobi n 30.1, Mean Corpuscular Hemoglobin Concent 33.0, Red Cell Distribution Width 14.8 H, Calcium Level 8.1 L, Aspartate Amino Transf (AST/SGOT) 37, Alanine Aminotransferase (ALT/SGPT) 36, Alkaline Phosphatase 87, Total Bilirubin 0.6, Total Protein 6.0 L, Albumin 2.1 L 04/23/19 07:48 Red Blood Count 4.21 L, Mean Corpuscular Volume 91.2, Mean Corpuscular Hemoglobin 30.4, Mean Corpuscular Hemoglobin Concent 33.3, Red Cell Distribution Width 14.9 H Microbiology Microbiology 04/23/19 Blood Culture, Received Pending 04/23/19 Blood Culture, Received Pending 04/22/19 Blood Culture - Preliminary, Resulted Impression Acute cholecystitis Patient showing signs of sepsis with acute neck, tachycardia, fever, leukopenia from the acute cholecystitis. is at the bedside. I discussed the situation with him. He seems to be getting sicker from the cholecystitis despite not having that much of abdominal tenderness. I reviewed the images CT scan of the chest abdomen and pelvis. Official read is not available yet. He has bilateral pleural effusion. I didn't appreciate any significant lung consolidation. Many other differentials is possibility of aspiration when he was throwing up on presentation Thursday evening. He does have some moderately distended and inflamed gallbladder. I do not appreciate signs of emphysema on the gallbladder wall or signs of perforation but certainly more pericholecystic fluid in the initial images. I discussed the situation with the and the patient. I advised bring him to the operating room for cholecystectomy. We will certainly attempt to perform this laparoscopically but has high high chance of converting to an open surgery. Performing this with this much of inflammation also puts him at slightly higher risk for bile duct injury and/or injury to nearby structures. Certainly he is already showing signs of sepsis and source control is important that this may proceed even despite of cholecystectomy. He will most likely need to stay in the ICU for close monitoring for this. He is already on Zosyn which should adequately cover for gram-negative rods that grew on his blood culture. Plan / VTE VTE Prophylaxis Ordered?: Yes HEMANTH LAYTON MD Apr 23, 2019 09:12
[2019-04-23] MEDS: PANTOPRAZOLE 40MG INJ (PROTONIX) (C9113) IV SCH ×2 (09:29→20:32)
[2019-04-23] MEDS: FLUTICASONE PROP 0.05% NASAL SPRAY 16 GM (FLONASE) NARES SCH (09:29)
[2019-04-23] MEDS: FLECAINIDE 50MG TABLET PO SCH ×2 (09:30→20:33)
[2019-04-23] MEDS ORDERED: BUPIVACAINE HCL 0.25% 30 ML VIAL As Ordered ONE (12:03)
[2019-04-23] MEDS ORDERED: LIDOCAINE 1% SDV INJ 30 ML VIAL As Ordered ONE (12:03)
[2019-04-23] MEDS ORDERED: dexameTHASONE 4 MG/ML 1ML VIAL (J1100) As Ordered ONE (12:46)
[2019-04-23] MEDS ORDERED: MIDAZOLAM INJ 2 MG/2 ML VIAL (J2250) As Ordered ONE (12:46)
[2019-04-23] MEDS ORDERED: fentaNYL 100 MCG/2 ML INJECTION (J3010) As Ordered ONE ×2 (12:46→14:17)
[2019-04-23] MEDS ORDERED: ONDANSETRON 4MG/2ML VIAL (J2405) As Ordered ONE (12:46)
[2019-04-23] MEDS ORDERED: PROPOFOL 200 MG/20 ML VIAL As Ordered ONE ×2 (12:46→16:29)
[2019-04-23] MEDS ORDERED: LIDOCAINE 2% INJ 100 MG/5 ML SDV (FOR ANES.) As Ordered ONE ×2 (12:46→16:16)
[2019-04-23] MEDS ORDERED: SUCCINYLCHOLINE 100 MG/5 ML SYRINGE (J0330) As Ordered ONE (13:33)
[2019-04-23] MEDS ORDERED: PHENYLephrine HCL 500 MCG/5 ML (100MCG/ML) SYRINGE (J2370) As Ordered ONE (13:33)
[2019-04-23] MEDS ORDERED: KETOROLAC 60 MG/2 ML VIAL (J1885) As Ordered ONE (13:41)
[2019-04-23] MEDS ORDERED: ROCURONIUM BROMIDE 50 MG/5 ML VIAL As Ordered ONE ×2 (13:48→13:49)
--- NOTE | 2019-04-23 14:15 | IPNPDOC ---
Subjective Date Seen The patient was seen on 04/23/19. Subjective Chief Complaint/HPI Patient seen and examined at the bedside. A rapid response was called this morning as the patient was noted to be tachypneic, tachycardic, and febrile. The patient was also noted to have a significantly distended abdomen, although he denied any complaints of pain. A stat CT scan of the abdomen/pelvis was ordered, and the patient was transferred to the ICU. Primary service, the surgical team was contacted and updated about the aforementioned events. The patient will likely need to go to the OR for surgical intervention. Objective Physical Examination General Exam: Positive: Alert, Cooperative, Moderate Distress ENT Exam: Positive: Atraumatic, Mucous membr. moist/pink Neck Exam: Negative: JVD Chest Exam: Positive: Clear to auscultation, Normal air movement Heart Exam: Positive: Rate Normal, Normal S1, Normal S2 Abdomen Exam: Positive: Other (significantly Distended); Negative: Tenderness Extremity Exam: Negative: Tenderness, Swelling Psych Exam: Positive: Oriented x 3 Assessment /Plan Plan/VTE VTE Prophylaxis Ordered?: Yes Plan Septicemia 2/[address] Abd/pel notable for distended gallbladder and cholelithiasis on admission (04/19/19) Ultrasound of the gallbladder notable for mild wall thickening and evidence for acute cholecystitis HIDA scan consistent with cystic duct obstruction This morning a rapid response was called as the patient was noted to be tachypneic, tachycardic, and febrile with a T. Max of 104.6 with a significantly distended abdomen. Although he did not complain of any pain Also of note, the patient's Blood Culture results were noted to be preliminarily positive for GNR from 04/22/[address] Scan of the abd/pel was ordered STAT Case discussed with Dr. Beckham via telephone during rapid response, and he was updated about the aforementioned findings. We transferred the patient to the ICU, and he will likely need surgical i ntervention for source control Blood Cultures preliminarily positive for GNR from 04/22/19 2/2 Above Cont Zosyn Patient will likely need surgical intervention for source control of acute cholecystitis CT Abd/pel ordered to r/o perforation or other complications Lactic Acid level ordered Patient kept NPO, IVF hydration ordered Repeat cultures ordered We will cont to monitor A. fib s/p pacemaker implantation On Flecainide and Bisoprolol (held) Not on full anticoagulation; currently on ASA 325 alone; will hold for possible surgery HTN Antihypertensives held 2/2 sepsis DLP Atorvastatin Gastrointestinal prophylaxis Protonix BID DVT prophylaxis Cont Heparin SC VS, I&O, 24H, [place] Vital Signs/I&O Vital Signs Date Time Temp Pulse Resp B/P (MAP) Pulse Ox O2 Delivery O2 Flow Rate FiO2 04/23/19 12:00 2.0 04/23/19 12:00 98.7 74 22 113/66 (82) 92 04/19/19 14:33 Room Air I&O- Last 24 Hours up to 6 AM 04/23/19 06:00 Intake Total 4235 ml Balance 4235 ml Laboratory Data 24H LABS Laboratory Tests 2 04/23/19 05:59: Nucleated Red Blood Cells % (auto) 0.0, Neutrophils 92H, Band Neutrophils 2, Lymphocytes (Manual) 6L, Platelet Estimate DECREASED, Anisocytosis 1+, Anion Gap 7L, Glomerular Filtration Rate > 60.0, Blood Urea Nitrogen 12, Creatinine 0.84, Sodium Level 139, Potassium Level 4.0, Chloride Level 111H, Carbon Dioxide Level 21, Calcium Level 8.1L, Aspartate Amino Transf (AST/SGOT) 37, Alanine Aminotransferase (ALT/SGPT) 36, Alkaline Phosphatase 87, Total Bilirubin 0.6, Total Protein 6.0L, Albumin 2.1L, Magnesium Level 1.9, Albumin/Globulin Ratio 0.54L 04/23/19 07:39: Bedside Glucose (Misc Panel) 101 04/23/19 07:48: Nucleated Red Blood Cells % (auto) 0.0, Anion Gap 9, Glomerular Filtration Rate > 60.0, Calcium Level 8.6L, Aspartate Amino Transf (AST/SGOT) 43H, Alanine Aminotransferase (ALT/SGPT) 42, Alkaline Phosphatase 120H, Total Bilirubin 0.8, Total Protein 6.7, Albumin 2.4L, Albumin/Globulin Ratio 0.56L, Lactic Acid Level 2.3*H, Direct Bilirubin 0.4H 04/23/19 12:03: Lactic Acid Followup at 4 Hours 1.0 CBC/BMP Laboratory Tests 04/23/19 05:59 Red Blood Count 3.76 L, Mean Corpuscular Volume 91.0, Mean Corpuscular Hemoglobin 30.1, Mean Corpuscular Hemoglobin Concent 33.0, Red Cell Distribution Width 14.8 H, Calcium Level 8.1 L, Aspartate Amino Transf (AST/SGOT) 37, Alanine Aminotransferase (ALT/SGPT) 36, Alkaline Phosphatase 87, Total Bilirubin 0.6, Total Protein 6.0 L, Albumin 2.1 L 04/23/19 07:48 Red Blood Count 4.21 L, Mean Corpuscular Volume 91.2, Mean Corpuscular Hemoglobin 30.4, Mean Corpuscular Hemoglobin Concent 33.3, Red Cell Distribution Width 14.9 H Microbiology Microbiology 04/23/19 Blood Culture, Received Pending 04/23/19 Blood Culture, Received Pending 04/22/19 Blood Culture - Preliminary, Resulted NAYANA ABDI MD Apr 23, 2019 14:15
[2019-04-23] MEDS ORDERED: ZOSYN 3.375 GM VIAL (J2543) As Ordered ONE (14:45)
--- NOTE | 2019-04-23 15:01 | REP ---
Clinical: Shortness of breath. Technique: Axial contrast enhanced images from the thoracic inlet to the upper abdomen with coronal and sagittal re-formations. Comparison: 07/07/2012. Findings: Mild bibasilar atelectasis and small pleural effusions are appreciated (right greater than left). No significant adenopathy. Moderate hiatal hernia noted and essentially unchanged compared to 2012. Mediastinum demonstrates atherosclerotic changes to the thoracic aorta and coronary arteries without aortic aneurysm or dissection. A small amount of pericardial fluid is noted and nonspecific. Pacemaker identified with tips in the right atrium and right ventricle. Musculoskeletal structures demonstrate age-related changes. Limited upper abdomen demonstrates distended gallbladder with wall thickening and pericholecystic fluid as well as gallstones and findings are consistent with acute cholecystitis. Impression: Mild bibasilar atelectasis and small pleural effusions. Limited upper abdomen demonstrates acute cholecystitis. Electronically Signed by Damion Robles MD 04/23/2019 08:27 A
--- NOTE | 2019-04-23 15:01 | REP ---
Clinical: Abdominal pain. Technique: Axial contrast enhanced images from the lung bases to the pubic symphysis with coronal and sagittal re-formations using 100 ml Isovue 370 intravenous contrast material including delayed images of the abdomen. Comparison: 04/19/2019. Findings: Current examination demonstrates hydropic gallbladder with wall thickening and moderate pericholecystic fluid along with gallstone in the dependent portion of the gallbladder neck. Findings are consistent with acute cholecystitis. Adjacent subsequent promontory changes to the duodenum cannot be excluded. Pancreas appears normal. Liver, spleen, bilateral adrenal glands and kidneys are relatively normal. Subcentimeter bilateral renal cysts and 3.1 cm left renal cyst are again noted. No evidence for bowel obstruction or free air to suggest perforation. Scattered diverticulosis noted. Pelvis demonstrates normal bladder. Prostate gland is heterogeneous and mildly enlarged. The osseous structures demonstrate age-related degenerative changes. There is subtle subcutaneous infiltration overlying the visualized left hip which is nonspecific. Atherosclerotic changes to the aorta without aneurysm. Lung bases demonstrate bibasilar atelectasis and small pleural effusions (right greater than left). Impression: 1. Acute cholecystitis. Possible secondary duodenitis. 2. Bibasilar atelectasis and small pleural effusions. 3. Subtle subcutaneous fatty infiltration overlying the visualized left hip is nonspecific but should be correlated with physical examination to exclude subtle bruising or cellulitis. 4. Further chronic stable changes. Electronically Signed by Damion Robles MD 04/23/2019 08:32 A
[2019-04-23] MEDS ORDERED: HYDROmorphone HCL 2 MG/ML 1ML VIAL (J1170) As Ordered ONE (15:05)
[2019-04-23] MEDS ORDERED: BUPIVACAINE HCL 0.25% 10 ML VIAL As Ordered ONE (16:28)
[2019-04-23] MEDS ORDERED: BUPIVACAINE LIPOSOME/PF 1.3% 20ML VIAL (13.3MG/ML)(EXPAREL)(C9290 PER1MG) As Ordered ONE (16:28)
[2019-04-23] MEDS ORDERED: PHENYLEPHRINE INJ 10MG/ML VIAL (J2370) As Ordered ONE (16:36)
[2019-04-23] MEDS ORDERED: ONDANSETRON 4MG/2ML VIAL (J2405) IV PRN (18:00)
[2019-04-23] MEDS ORDERED: LR 1,000 ML IV SCH (18:00)
[2019-04-23] MEDS ORDERED: HYDROMORPHONE HCL 0.5 MG/ 0.5 ML SYRINGE (J1170 PER 1) IV PRN (18:00)
[2019-04-23] MEDS ORDERED: fentaNYL 100 MCG/2 ML INJECTION (J3010) IV PRN (18:00)
[2019-04-23 18:27] LABS: HEMATOCRIT 32.3 % (42.0-52.0); MEAN CORPUSCULAR HEMOGLOBIN 30.3 pg (27.0-33.0); MEAN CORPUSCULAR HGB CONC 32.8 g/dl (32.0-36.5); MEAN CORPUSCULAR VOLUME 92.3 fl (80.0-96.0); PLATELET COUNT, AUTOMATED 117 10^3/uL (150-450); WHITE BLOOD COUNT 9.4 10^3/uL (4.0-10.0)
[2019-04-23 18:29] LABS: HEMOGLOBIN 10.6 g/dl (13.5-17.5)
[2019-04-23 18:58] LABS: ANISOCYTOSIS 1+; ATYPICAL LYMPH 1 % (0-5); LYMPHOCYTES 4 % (16-52); MONOCYTES 2 % (0-8); NEUTROPHILS 89 % (35-75); PLATELET ESTIMATE DECREASED (NORMAL)
[2019-04-23 18:59] LABS: OVALOCYTES 1+; POIKILOCYTOSIS 1+
[2019-04-23] MEDS: ATORVASTATIN 20 MG TAB PO SCH (20:33)
[2019-04-23] MEDS: ANEXSIA, NORCO 7.5MG/325MG TABLET(HYDROCODONE/APAP) PO PRN (20:42)
[2019-04-24] VITALS: BP 118/69
[2019-04-24] MEDS: ANEXSIA, NORCO 7.5MG/325MG TABLET(HYDROCODONE/APAP) PO PRN (02:50)
[2019-04-24] MEDS: KCL 40MEQ in NS 1000ML 1,000 ML IV SCH (02:50)
[2019-04-24 04:00] VITALS: BP 118/76
[2019-04-24] MEDS: PIPERACILLIN/TAZOBACTAM SOD 3.375 GM in D5W MINI-BAG PLUS 50 ML IV SCH ×4 (04:00→21:47)
[2019-04-24 04:31] LABS: HEMATOCRIT 31.4 % (42.0-52.0); HEMOGLOBIN 10.3 g/dl (13.5-17.5); MEAN CORPUSCULAR HEMOGLOBIN 30.1 pg (27.0-33.0); MEAN CORPUSCULAR HGB CONC 32.8 g/dl (32.0-36.5); MEAN CORPUSCULAR VOLUME 91.8 fl (80.0-96.0); PLATELET COUNT, AUTOMATED 126 10^3/uL (150-450); RED BLOOD COUNT 3.42 10^6/uL (4.30-6.10)
[2019-04-24 04:55] LABS: ALBUMIN 1.9 GM/DL (3.2-5.2); ALT/SGPT 104 U/L (12-78); BILIRUBIN,TOTAL 0.3 MG/DL (0.2-1.0); BLOOD UREA NITROGEN 13 MG/DL (7-18); CALCIUM LEVEL 7.4 MG/DL (8.8-10.2); CARBON DIOXIDE LEVEL 23 MEQ/L (21-32); CHLORIDE LEVEL 113 MEQ/L (98-107); CREATININE FOR GFR 0.69 MG/DL (0.70-1.30); GLOMERULAR FILTRATION RATE > 60.0 (>49); GLUCOSE, FASTING 110 MG/DL (70-100); POTASSIUM SERUM 4.7 MEQ/L (3.5-5.1); SODIUM LEVEL 142 MEQ/L (136-145); TOTAL PROTEIN 5.6 GM/DL (6.4-8.2)
[2019-04-24 04:59] LABS: LYMPHOCYTES 3 % (16-52); MONOCYTES 5 % (0-8); NEUTROPHILS 91 % (35-75)
[2019-04-24 05:00] LABS: ANISOCYTOSIS 1+; PLATELET CLUMPS SMALL AMT; PLATELET ESTIMATE NORMAL (NORMAL); TOXIC GRANULATION 1+
[2019-04-24] MEDS ORDERED: LR 1,000 ML IV SCH (07:30)
[2019-04-24 08:00] VITALS: BP 128/73
--- NOTE | 2019-04-24 08:29 | IPNPDOC ---
Subjective General Date/Time Seen The patient was seen on 04/24/19 at 08:27. Subject Chief Complaint/History The patient is a 68-year-old male admitted with a reason for visit of Abdominal Pain. Current Medications Current Medications Current Medications Acetaminophen (Tylenol Tab) 650 mg Q4HP PRN PO PAIN OR FEVER Last administered on 04/23/19 07:44; Start 04/22/19 at 03:45 Acetaminophen/ Hydrocodone Bitart (Anexsia, [place] 7.5mg/325mg) 1 tab QID PRN PO PAIN Last administered on 04/24/19 02:50; Start 04/21/19 at 11:15 Albuterol/ Ipratropium (Duoneb (Ipr 0.5mg/Alb 2.5mg)) 3 ml Q2HP PRN NEB SOB/WHEEZING Last administered on 04/23/19at 07:43; Start 04/23/19 at 00:45 Amlodipine Besylate (Norvasc) 10 mg QHS PO Last administered on 04/22/19 21:33; Start 04/19/19 at 21:00; Stop 04/23/19 at 07:56; Status DC Atorvastatin Calcium (Lipitor) 40 mg QHS PO Last administered on 04/23/19 20:33; Start 04/19/19 at 21:00 Bisoprolol Fumarate (Zebeta) 5 mg DAILY PO ; Start 04/19/19 at 09:00; Status Cancel Bisoprolol Fumarate (Zebeta) 5 mg DAILY PO Last administered on 04/22/19at 08:21; Start 04/20/19 at 09:00; Stop 04/23/19 at 07:56; Status DC Diatrizoate Meglum/ Diatrizoate Sod (Gastrografin) 10 ml Q30M PO ; Start 04/23/19 at 08:15; Stop 04/23/19 at 08:46; Status DC Docusate Sodium (Colace) 200 mg BID PO Last administered on 04/23/19 20:33; Start 04/21/19 at 09:00 Doxazosin Mesylate (Cardura) 4 mg QHS PO Last administered on 04/22/19 21:33; Start 04/19/19 at 21:00; Stop 04/23/19 at 07:52; Status DC Fentanyl Citrate (Sublimaze) 25 mcg Q5MP PRN IV MODERATE PAIN (PS 4-7); Start 04/23/19 at 18:00; Stop 04/23/19 at 19:00; Status DC Flecainide Acetate (Tambocor) 100 mg BID PO Last administered on 04/23/19at 20:33; Start 04/19/19 at 09:00 Fluticasone Propionate (Flonase 0.05% Nasal [place]) 2 SPRAYS IN EACH NOSTRIL DAILY NARES Last administered on 04/23/19at 09:29; Start 04/20/19 at 09:00 Heparin Sodium (Porcine) (Heparin) 5,000 units Q8H SC Last administered on 04/23/19at 06:09; Start 04/19/19 at 14:00; Stop 04/23/19 at 07:52; Status DC Home Med (Med Rec Complete!) ASDIRECTED XX ; Start 04/19/19 at 09:00; Stop 04/19/19 at 09:00; Status DC Hydromorphone HCl (Dilaudid) 0.2 mg Q5MP PRN IV MODERATE/SEVERE PAIN (PS 5-10); Start 04/23/19 at 18:00; Stop 04/23/19 at 19:00; Status DC Hydromorphone HCl (Dilaudid) 0.5 mg Q30M PRN IV MODERATE PAIN (PS 5-7) Last administered on 04/19/19at 05:27; Start 04/19/19 at 02:45; Stop 04/19/19 at 05 :27; Status DC Ketorolac Tromethamine (ToRADol) 30 mg Q6H IV Last administered on 04/23/19at 04:43; Start 04/20/19 at 11:00; Stop 04/23/19 at 07:52; Status DC Lactated Ringer's 1,000 ml @ 100 mls/hr Q10H IV ; Start 04/23/19 at 18:00; Stop 04/23/19 at 19:00; Status DC Lactated Ringer's 1,000 ml @ 100 mls/hr Q10H IV ; Start 04/24/19 at 07:30 Metoclopramide HCl (REGLAN INJection) 10 mg Q6HP PRN IV NAUSEA OR VOMITING; Start 04/19/19 at 12:45; Stop 04/23/19 at 07:52; Status DC Morphine Sulfate (Morphine Sulfate Inj) 3 mg Q3HP PRN IV SEVERE PAIN (PS 8-10) Last administered on 04/22/19at 21:32; Start 04/19/19 at 12:30 Morphine Sulfate (Morphine Sulfate Inj) 4 mg Q2HP PRN IV SEVERE PAIN (PS 8-10) Last administered on 04/24/19at 00:18; Start 04/19/19 at 12:45 Morphine Sulfate (Morphine Sulfate Inj) 4 mg Q30M PRN IV SEVERE PAIN (PS 8-10) Last administered on 04/19/19at 08:29; Start 04/19/19 at 01:30; Stop 04/19/19 at 08:29; Status DC Ondansetron HCl (ZOFRAN INJection) 4 mg Q4HP PRN IV NAUSEA OR VOMITING; Start 04/23/19 at 18:00; Stop 04/23/19 at 19:00; Status DC Ondansetron HCl (ZOFRAN INJection) 4 mg Q6HP PRN IV NAUSEA OR VOMITING; Start 04/19/19 at 12:45 Oxycodone/ Acetaminophen (Percocet 5mg/ 325mg Tablet) 1 tab Q4HP PRN PO MODERATE PAIN (PS 5-7) Last administered on 04/21/19at 10:58; Start 04/19/19 at 12:45; Stop 04/21/19 at 11:13; Status DC Oxycodone/ Acetaminophen (Percocet 5mg/ 325mg Tablet) 2 tab Q6HP PRN PO SEVERE PAIN (PS 8-10); Start 04/19/19 at 12:45; Stop 04/21/19 at 11:13; Status DC Pantoprazole Sodium (Protonix) 40 mg BID IV Last administered on 04/23/19at 20:32; Start 04/19/19 at 21:00 Pantoprazole Sodium (Protonix) 40 mg DAILY IV Last administered on 04/19/19at 12:40; Start 04/19/19 at 09:00; Stop 04/19/19 at 12:47; Status DC Piperacillin Sod/ Tazobactam Sod 3.375 gm/Dextrose 50 ml @ 50 mls/hr Q6H IV ; Start 04/19/19 at 13:00; Status Cancel Piperacillin Sod/ Tazobactam Sod 3.375 gm/Dextrose 50 ml @ 50 mls/hr Q6H IV Last administered on 04/24/19at 04:00; Start 04/19/19 at 16:00 Potassium Chloride/Sodium Chloride 1,000 ml @ 125 mls/hr Q8H IV Last administered on 04/24/19at 02:50; Start 04/20/19 at 07:18; Stop 04/24/19 at 07:23; Status DC Simethicone (Mylicon) 120 mg QIDP PO ; Start 04/20/19 at 09:00; Stop 04/20/19 at 09:00; Status DC Simethicone (Mylicon) 120 mg QIDP PRN PO GAS PAIN Last administered on 04/22/19at 14:03; Start 04/20/19 at 09:00; Stop 04/23/19 at 07:52; Status DC Sodium Chloride 1,000 ml @ 125 mls/hr Q8H IV Last administered on 04/19/19at 22:18; Start 04/19/19 at 12:34; Stop 04/20/19 at 07:18; Status DC Sodium Chloride 1,000 ml @ 150 mls/hr Q6H40M IV Last administered on 04/19/19at 07:56; Start 04/19/19 at 07:27; Stop 04/19/19 at 12:44; Status DC Sucralfate (Carafate) 1 gm ACHS PO Last administered on 04/22/19at 11:54; Start 04/19/19 at 12:45; Stop 04/22/19 at 12:34; Status DC Zolpidem Tartrate (Ambien) 10 mg QHS PRN PO FOR SLEEP Last administered on 04/23/19at 01:30; Start 04/20/19 at 22:00; Stop 04/23/19 at 07:52; Status DC Allergies Coded Allergies: lisinopril (Verified Allergy, Severe, FACIAL SWELLING, 04/19/19) clarithromycin (Verified Allergy, Intermediate, HIVES, 04/19/19) Objective Physical Examination Examination GENERAL APPEARANCE:[Patient seen, laying in bed, awake, alert, and oriented. Comfortable, in no acute distress]. SKIN: [Warm and moist]. HEENT: [Normocephalic, atraumatic. Isabela palpebral conjunctiva, anicteric sclerae. Lips and mucosa appear moist]. NECK: [Supple, no thyromegaly. No obvious jugular venous distention]. LUNGS: [Clear to auscultation bilaterally. No wheezing appreciated]. HEART: [No chest wall abnormalities. Regular rate and rhythm with no murmurs appreciated]. ABDOMEN: Abdomen is , soft, . [No hepatosplenomegaly. No umbilical or groin herniations, nondistended. No noticeable rebound or guarding. No grimacing with palpation. No rebound tenderness. No masses appreciated]. EXTREMITIES: [Extremities have no deformities. No edema identified]. Vital Signs Vital Signs Date Time Temp Pulse Resp B/P (MAP) Pulse Ox O2 Delivery O2 Flow Rate FiO2 04/24/19 04:00 2.0 04/24/19 04:00 97.2 66 14 118/76 (90) 97 04/19/19 14:33 Room Air I&Os I&O- Last 24 Hours up to 6 AM 04/24/19 06:00 Intake Total 6311 ml Output Total 2720 ml Balance 3591 ml Laboratory Data Labs 24H Laboratory Tests 2 04/23/19 12:03: Lactic Acid Followup at 4 Hours 1.0 04/23/19 18:12: Nucleated Red Blood Cells % (auto) 0.0, Neutrophils 89H, Band Neutrophils 4, Lymphocytes (Manual) 4L, Monocytes (Manual) 2, Atypical Lymphocytes 1, Platelet Estimate DECREASED, Poikilocytosis 1+, Anisocytosis 1+, Ovalocytes 1+, Acanthocytes 1+ 04/24/19 04:09: Nucleated Red Blood Cells % (auto) 0.0, Neutrophils 91H, Band Neutrophils 1, Lymphocytes (Manual) 3L, Monocytes (Manual) 5, Platelet Estimate NORMAL, Anisocytosis 1+, Toxic Granulation 1+, Clumped Platelets SMALL AMT, Anion Gap 6L, Glomerular Filtration Rate > 60.0, Blood Urea Nitrogen 13, Creatinine 0.69L, Sodium Level 142, Potassium Level 4.7, Chloride Level 113H, Carbon Dioxide Level 23, Calcium Level 7.4L, Aspartate Amino Transf (AST/SGOT) 128H, Alanine Aminotransferase (ALT/SGPT) 104H, Alkaline Phosphatase 94, Total Bilirubin 0.3#, Total Protein 5.6L, Albumin 1.9#L, Magnesium Level 2.0, Albumin/Globulin Ratio 0.51L CBC/BMP Laboratory Tests 04/23/19 18:12 Red Blood Count 3.50 L, Mean Corpuscular Volume 92.3, Mean Corpuscular Hemoglobin 30.3, Mean Corpuscular Hemoglobin Concent 32.8, Red Cell Distribution Width 15.4 H 04/24/19 04:09 Red Blood Count 3.42 L, Mean Corpuscular Volume 91.8, Mean Corpuscular Hemoglobin 30.1, Mean Corpuscular Hemoglobin Concent 32.8, Red Cell Distribution Width 15.6 H, Calcium Level 7.4 L, Aspartate Amino Transf (AST/SGOT) 128 H, Alanine Aminotransferase (ALT/SGPT) 104 H, Alkaline Phosphatase 94, Total Bilirubin 0.3 #, Total Protein 5.6 L, Albumin 1.9 #L Microbiology Microbiology 04/23/19 Blood Culture - Preliminary, Resulted No growth after 24 hours . All specim... 04/23/19 Blood Culture - Preliminary, Resulted No growth after 24 hours . All specim... 04/22/19 Blood Culture - Final, Complete Escherichia Coli 04/23/19 Anaerobic Culture, Received Pending 04/23/19 Gram Stain - Final, Resulted 04/23/19 Abscess Culture, Resulted Pending Impression Gangrenous cholecystitis with small pockets of liver abscess next to it Postop day 1 after open cholecystectomy He appears to be doing well. No longer febrile. He is hemodynamically stable. He is urine output has picked up. D/C nasogastric tube I will advance his diet.*Requires I think it is tolerating this is can be advanced as tolerated. Saline lock IV fluid once taking adequate oral intake. We also discussed postop pain control. To not receive morphine and try to control the pain with either at oxycodone hydrocodone. Intermittent doses of Toradol will also help him. This also volunteering to walk today and if he is able to do so and he continues to make good urine output I think we can discontinue the Ware catheter candidate. Continue IV antibiotics for now while awaiting cultures from the bile taken from the OR. Continue DVT prophylaxis. Plan / VTE VTE Prophylaxis Ordered?: Yes HEMANTH LAYTON MD Apr 24, 2019 08:29
[2019-04-24] MEDS: FLECAINIDE 50MG TABLET PO SCH ×2 (09:19→21:48)
[2019-04-24] MEDS: PANTOPRAZOLE 40MG INJ (PROTONIX) (C9113) IV SCH ×2 (09:19→20:48)
[2019-04-24] MEDS: DOCUSATE SODIUM 100 MG CAP PO SCH ×2 (09:19→20:48)
[2019-04-24] MEDS: FLUTICASONE PROP 0.05% NASAL SPRAY 16 GM (FLONASE) NARES SCH (09:19)
[2019-04-24] MEDS: PERCOCET 5MG/325MG TAB PO PRN ×4 (09:21→21:48)
[2019-04-24] MEDS: KETOROLAC 30 MG/ML VIAL (J1885) IV PRN ×3 (09:22→23:31)
--- NOTE | 2019-04-24 10:42 | IPNPDOC ---
Subjective Date Seen The patient was seen on 04/24/19. Subjective Chief Complaint/HPI Patient seen and examined at the bedside. Reports that he is feeling much better today following open cholecystectomy yesterday. He has been cleared to start a diet as per surgery. He has remained hemodynamically stable and afebrile overnight. Objective Physical Examination General Exam: Positive: Alert, Cooperative, No Acute Distress ENT Exam: Positive: Atraumatic, Mucous membr. moist/pink Neck Exam: Negative: JVD Chest Exam: Positive: Clear to auscultation, Normal air movement Heart Exam: Positive: Rate Normal, Normal S1, Normal S2 Abdomen Exam: Positive: Soft, Tenderness (mild tenderness to deep palpation near surgical scar. No rebound tenderness, guarding, or rigidity.), Other (+GINI drain with serosanguineous fluid present.) Extremity Exam: Negative: Tenderness, Swelling Psych Exam: Positive: Oriented x 3 Assessment /Plan Plan/VTE VTE Prophylaxis Ordered?: Yes Plan Septicemia 2/2 acute cholecystitis with surrounding liver abscess s/p open cholecystectomy on 04/23/[address] Beckham of Gen Surg Patient afebrile, and hemodynamically stable thereafter. States that he is feeling well this AM, and has been cleared to start a diet as per Surg Cont Zosyn until OR cultures available Blood Cultures positive for E. Coli from 04/22/19 2/2 Above Cont Zosyn Repeat blood cultures from 04/23 preliminarily negative thus far OR Cultures from 04/23 pending We will cont to monitor A. fib s/p pacemaker implantation On Flecainide and Bisoprolol (held) Not on full anticoagulation; currently on ASA 325 alone; will hold 2/2 recent surgery HTN Antihypertensives held 2/2 recent sepsis DLP Atorvastatin Gastrointestinal prophylaxis Protonix BID DVT prophylaxis SCDs/TEDs VS, I&O, 24H, Fishbone Vital Signs/I&O Vital Signs Date Time Temp Pulse Resp B/P (MAP) Pulse Ox O2 Delivery O2 Flow Rate FiO2 04/24/19 09:21 64 20 128/73 99 04/24/19 04:00 2.0 04/24/19 04:00 97.2 04/19/19 14:33 Room Air I&O- Last 24 Hours up to 6 AM 04/24/19 06:00 Intake Total 6311 ml Output Total 2720 ml Balance 3591 ml Laboratory Data 24H LABS Laboratory Tests 2 04/23/19 12:03: Lactic Acid Followup at 4 Hours 1.0 04/23/19 18:12: Nucleated Red Blood Cells % (auto) 0.0, Neutrophils 89H, Band Neutrophils 4, Lymphocytes (Manual) 4L, Monocytes (Manual) 2, Atypical Lymphocytes 1, Platelet Estimate DECREASED, Poikilocytosis 1+, Anisocytosis 1+, Ovalocytes 1+, Acanthocytes 1+ 04/24/19 04:09: Nucleated Red Blood Cells % (auto) 0.0, Neutrophils 91H, Band Neutrophils 1, Lym phocytes (Manual) 3L, Monocytes (Manual) 5, Platelet Estimate NORMAL, Anisocytosis 1+, Toxic Granulation 1+, Clumped Platelets SMALL AMT, Anion Gap 6L, Glomerular Filtration Rate > 60.0, Blood Urea Nitrogen 13, Creatinine 0.69L, Sodium Level 142, Potassium Level 4.7, Chloride Level 113H, Carbon Dioxide Level 23, Calcium Level 7.4L, Aspartate Amino Transf (AST/SGOT) 128H, Alanine Aminotransferase (ALT/SGPT) 104H, Alkaline Phosphatase 94, Total Bilirubin 0.3#, Total Protein 5.6L, Albumin 1.9#L, Magnesium Level 2.0, Albumin/Globulin Ratio 0.51L CBC/BMP Laboratory Tests 04/23/19 18:12 Red Blood Count 3.50 L, Mean Corpuscular Volume 92.3, Mean Corpuscular Hemoglobin 30.3, Mean Corpuscular Hemoglobin Concent 32.8, Red Cell Distribution Width 15.4 H 04/24/19 04:09 Red Blood Count 3.42 L, Mean Corpuscular Volume 91.8, Mean Corpuscular Hemoglobin 30.1, Mean Corpuscular Hemoglobin Concent 32.8, Red Cell Distribution Width 15.6 H, Calcium Level 7.4 L, Aspartate Amino Transf (AST/SGOT) 128 H, Alanine Aminotransferase (ALT/SGPT) 104 H, Alkaline Phosphatase 94, Total Bilirubin 0.3 #, Total Protein 5.6 L, Albumin 1.9 #L Microbiology Microbiology 04/23/19 Blood Culture - Preliminary, Resulted No growth after 24 hours . All specim... 04/23/19 Blood Culture - Preliminary, Resulted No growth after 24 hours . All specim... 04/22/19 Blood Culture - Final, Complete Escherichia Coli 04/23/19 Anaerobic Culture, Received Pending 04/23/19 Gram Stain - Final, Resulted 04/23/19 Abscess Culture, Resulted Pending NAYANA ABDI MD Apr 24, 2019 10:41
--- NOTE | 2019-04-24 12:23 | ROOPDOC ---
[facility] Report Of Operation Report of Operation DATE OF PROCEDURE: 04/23/19 PREPROCEDURE DIAGNOSES: Sepsis from acute cholecystitis. POSTPROCEDURE DIAGNOSES: Gangrenous cholecystitis with small pockets of liver abscess next to the gallbladder. PROCEDURE: Initially performed laparoscopic then converted to open cholecystectomy, unroofing and drainage of liver abscess. 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 anesthesia. ESTIMATED BLOOD LOSS: Approximately 1000 mL. COMPLICATIONS: None. REMARKS: 68-year-old male, febrile up to 104, tachycardic tachypnea consistent with sepsis. He is admitted for acute cholecystitis which seemed to have worsened despite antibiotic therapy. Remarkably has minimal to no abdominal discomfort. PROCEDURE NOTE: Markedly inflamed and gangrenous gallbladder wall especially the posterior wall. There were small pockets of abscess within the liver capsule next to the gallbladder that was opened up and drained. DESCRIPTION OF PROCEDURE: Patient is receiving scheduled doses of Zosyn 3.3 cm milligrams IV every 6 hours for acute cholecystitis. He was brought to the operating room, laid supine on the table, compression boots placed for DVT prophylaxis. General endotracheal anesthesia started. His abdomen then prepped and draped in usual sterile fashion. We paused for a surgical timeout using both pre-incision safety checklist to verify correct patient, procedure site and additional clinical information prior to beginning the procedure Entry into the abdomen done through an incision 2 cms above the umbilicus. He is very prominent, markedly protuberant and rounded abdomen and is not clear whether this is distention: Associated ileus from the cholecystitis or dizziness his usual body habitus. A Veress needle was inserted with a controlled fashion. CO2 insufflation started to pressure 15 mmHg. Using the same incision a 5 mm Visiport was placed under direct vision laparoscope. The area underneath the insertion site was inspected and no injury found. He was then placed in steep reverse Trendelenburg. His right side was tilted up to further expose the gallbladder. Despite repositioning him is very hard to visualize the gallbladder fossa in the course of the gallbladder with very thick omentum overlying the area at the edge of the gallbladder. I placed a 12 mm epigastric port and another 5 mm port over the right midclavicular subcostal area, instrument ports to retract the omentum away from the liver bed. There were typical thickened omentum partially adhered to the edge of the liver consistent with cholecystitis. I placed another 5 mm port in between my 2 instrument ports to move my camera closer to the area for better visualization. As I was detaching the inflammatory adhesions of the omentum from the liver bed and removed without pockets of abscess that seems to be from the liver itself and not from the gallbladder. I continued bluntly dissecting the omentum away from the area and obtained a Harmonic scalpel to help with the dissection of the omentum. After uncovering the liver bed it was initially hard to determine the course of the gallbladder. There was gross area of inflammation at the edge of the liver but at the onset was difficult to determine where the liver starts and were the potential gallbladder is with a hole area of seeming same inflating consistency. I obtained a aspirating needle and inserted this to the area at the liver bed which seems to be more fluctuant than the rest of the liver. There was is abscess or the gallbladder itself. I was able to obtain this brownish purulent material and this was sent off as part of the culture. So this seems to be the gallbladder and as I was dissecting around that I could see that the fluctuance or gums more prominent this if the gallbladder is getting more prominent. Despite this I am not able to retract the gallbladder superiorly enough to safely dissect the hepatocystic triangle was thus I decided to convert to an open surgery at this point. After the laparoscopy instruments were set up and the open instruments were set up and counted properly I made a subcostal incision and took this through the different layers of the abdomen entering the abdomen. The Bookwalter self- retaining retractor was set up for adequate visualization. The colon and surrounding bowels were packed away from the area to help with the exposure. I grabbed the fundus of the gallbladder which seems to be partially intrahepatic and opened up the peritoneum overlying the fundus with the Bovie instrument. The posterior wall of the gallbladder was dissected and this is clearly mushy and necrotic. I continued dissecting the gallbladder off the liver bed starting from the fundus going both laterally and medially wherever I think is safe. I was able to get down to the mid body of the gallbladder this way both laterally and medially and proceeded laterally as this area is safe for away from the hepatocystic triangle coming down from the mid body towards the neck of the gallbladder. Going on this approach has able to go down onto the infundibulum and dissect mostly bluntly at the infundibulum to figure out the course of the cystic duct this way. I again proceeded medially from the mid body towards the hepatocystic triangle following the course of the previous lateral dissection. At the area at the neck the gallbladder I further develop the planes between the liver and the neck of the gallbladder finding the obvious tubular structures and developing the planes around this. I followed the neck and infundibulum to identify the cystic duct. The cystic artery started to determine given the degree of inflammation. I was left off with 3 seemingly tubular structures in cluding that of the cystic duct. Palpating around the neck of the gallbladder or multiple mobile stones. The cystic duct seems to be enlarged mildly but they could not feel any stones around it. While dissecting around 1 and this 2 tubular structures I got into some bleeding which seems to be pulsatile close to the area where think the cystic artery is. This was temporarily clamped with my right angle instrument or by continue to work on the remaining structures. One TA seemingly tubular structures turntable man to be just inflamed adipose tissue and this was divided. I encircled around the 2 remaining tubular structures and clipped the cystic artery first and divided this. I continued developing the cystic duct and placed 2 clips below it and one towards the gallbladder side and divided this. 8 2-0 Vicryl tie was also left in place at the cystic duct stump. At this point I still have the prior bleeder clamped and the started developing the plane around it seems to be a branch coming off from cystic artery. While developing this I got into heavier bleeding after opening up my clamp. I was able to get control of this with my forceps and further dissected off the cystic artery until the area before the branch was developed and this was controlled with a large Hemoclip. All the packings were then removed and I irrigated that he abdomen. Counts of the sponges were her verified correct for our closure. I left a 19 Eduardo drain coursing through one of my port sites to the gallbladder fossa. The subcostal incision was closed in 2 layers with running suture of 1 Vicryl at the posterior sheath and another running suture to close the anterior sheath. The subcutaneous tissue was irrigated and checked for hemostasis and the skin was closed with howard along with the other port sites that are remaining. The drain was sutured in place with 200 silks. Gauze dressings were then placed around our incision and drain sites. Patient was slow to awaken but was subsequently extubated. He remained hemodynamically stable throughout the period he started picking up some urinating the procedure. Counts of the sponges and instruments were verified correct. He was then brought to the postoperative care area unit. Intraoperative findings were discussed with family after the procedure. The fundus of the gallbladder was grasped and the gallbladder was elevated superiorly exposing the neck of the gallbladder. The peritoneum overlying the area was opened up and dissected free both anteriorly and posteriorly to help with retraction of the gallbladder. The hepatocystic triangle was approached and dissected using a [place] and instrument. The cystic duct was identified coming off from the next gallbladder this was circumferentially dissected. The cystic artery was identified in its usual position medially behind a small lymph node of [place]. This was similarly circumferentially dissected off surrounding adipose tissue. We continued posterior dissection proximally at the next gallbladder until a critical view of safety was achieved whereby only the previously identified duct and artery coursing through the neck the gallbladder. At this point the cystic artery was clipped 4 times and divided. After again checking her anatomy and verifying that the previously identified cystic duct, this was also clipped 4 times and divided. The rest of the gallbladder was then dissected free of the gallbladder bed using Bovie cautery. There was minimal bleeding at the lateral gallbladder attachments to the liver capsule this was easily controlled with Bovie cautery. The gallbladder was then placed in an Endo Catch bag and retrieved outside through the epigastric port site. After re- insufflation and inspected the clips and noted this to be in place. No further bleeding noted. No bile leakage noted. The abdomen was deflated all ports were removed. The epigastric fascial defect repaired with 0 Vicryl in a mattress fashion. Rest of the skin incisions closed with 4-0 Monocryl in subcuticular fashion. Steri-Strips and gauze dressings were placed, the wound. Patient was informed they awakened, extubated and brought to recovery room stable SEYMOUR BECKHAM MD Apr 24, 2019 12:23
[2019-04-24 14:00] VITALS: BP 131/80
[2019-04-24] MEDS: ATORVASTATIN 20 MG TAB PO SCH (20:48)
[2019-04-24 22:00] VITALS: BP 140/80
--- NOTE | 2019-04-25 01:18 | ECGEPIP ---
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
[2019-04-25] MEDS: PERCOCET 5MG/325MG TAB PO PRN ×5 (03:04→20:26)
[2019-04-25] MEDS: PIPERACILLIN/TAZOBACTAM SOD 3.375 GM in D5W MINI-BAG PLUS 50 ML IV SCH ×3 (03:04→15:58)
[2019-04-25 06:00] VITALS: BP 135/85
[2019-04-25 06:09] LABS: BASO % 0.3 % (0.0-1.0); EOS % 0.5 % (0.0-3.0); HEMATOCRIT 31.2 % (42.0-52.0); HEMOGLOBIN 10.4 g/dl (13.5-17.5); LYMPH # 0.7 10^3/uL (1.5-4.5); LYMPH % 9.8 % (24.0-44.0); MEAN CORPUSCULAR HEMOGLOBIN 29.8 pg (27.0-33.0); MEAN CORPUSCULAR HGB CONC 33.3 g/dl (32.0-36.5); MEAN CORPUSCULAR VOLUME 89.4 fl (80.0-96.0); MONO # 0.9 10^3/uL (0.0-0.8); MONO % 11.5 % (0.0-5.0); NEUTROPHILS # 5.7 10^3/uL (1.8-7.7); NEUTROPHILS % 74.7 % (36.0-66.0); PLATELET COUNT, AUTOMATED 161 10^3/uL (150-450); RED BLOOD COUNT 3.49 10^6/uL (4.30-6.10); WHITE BLOOD COUNT 7.6 10^3/uL (4.0-10.0)
[2019-04-25 06:27] LABS: ALBUMIN 1.9 GM/DL (3.2-5.2); ALT/SGPT 69 U/L (12-78); BILIRUBIN,TOTAL 0.4 MG/DL (0.2-1.0); BLOOD UREA NITROGEN 10 MG/DL (7-18); CARBON DIOXIDE LEVEL 23 MEQ/L (21-32); CHLORIDE LEVEL 110 MEQ/L (98-107); CREATININE FOR GFR 0.74 MG/DL (0.70-1.30); GLOMERULAR FILTRATION RATE > 60.0 (>49); GLUCOSE, FASTING 100 MG/DL (70-100); POTASSIUM SERUM 3.8 MEQ/L (3.5-5.1); SODIUM LEVEL 140 MEQ/L (136-145)
[2019-04-25] MEDS: FLECAINIDE 50MG TABLET PO SCH ×2 (08:41→20:26)
[2019-04-25] MEDS: FLUTICASONE PROP 0.05% NASAL SPRAY 16 GM (FLONASE) NARES SCH (08:41)
[2019-04-25] MEDS: DOCUSATE SODIUM 100 MG CAP PO SCH ×2 (08:41→20:27)
[2019-04-25] MEDS: PANTOPRAZOLE 40MG INJ (PROTONIX) (C9113) IV SCH ×2 (08:41→20:24)
--- NOTE | 2019-04-25 13:28 | IPNPDOC ---
Subjective Date Seen The patient was seen on 04/25/19. Subjective Chief Complaint/HPI Patient seen and examined at the bedside. Denies any complaints of abdominal pain. States that he has been tolerating a diet without any acute complaints. Has yet to pass a bowel movement, but notes passing flatus. Objective Physical Examination General Exam: Positive: Alert, Cooperative, No Acute Distress ENT Exam: Positive: Atraumatic, Mucous membr. moist/pink Neck Exam: Negative: JVD Chest Exam: Positive: Clear to auscultation, Normal air movement Heart Exam: Positive: Rate Normal, Normal S1, Normal S2 Abdomen Exam: Positive: Soft, Other (+GINI drain ); Negative: Tenderness Extremity Exam: Negative: Tenderness, Swelling Psych Exam: Positive: Oriented x 3 Assessment /Plan Plan/VTE VTE Prophylaxis Ordered?: Yes Plan Septicemia 2/2 acute cholecystitis with surrounding liver abscess s/p open cholecystectomy on 04/23/[address] Beckham of Gen Surg Patient afebrile, and hemodynamically stable thereafter. States that he is feeling well this AM, and has been cleared to start a diet as per Surg Cont Zosyn until OR cultures available Blood Cultures positive for E. Coli from 04/22/19 2/2 Above Cont Zosyn Repeat blood cultures from 04/23 negative thus far OR Cultures from 04/23 pending We will cont to monitor A. fib s/p pacemaker implantation On Flecainide and Bisoprolol (held) Not on full anticoagulation; currently on ASA 325 alone; will hold 2/2 recent surgery HTN Continue Norvasc, chlorthalidone DLP Atorvastatin Gastrointestinal prophylaxis Protonix BID DVT prophylaxis SCDs/TEDs VS, I&O, 24H, Fishbone Vital Signs/I&O Vital Signs Date Time Temp Pulse Resp B/P (MAP) Pulse Ox O2 Delivery O2 Flow Rate FiO2 04/25/19 11:34 18 04/25/19 07:21 95 04/25/19 06:00 98.0 60 135/85 (102) 2.0 04/19/19 14:33 Room Air I&O- Last 24 Hours up to 6 AM 04/25/19 06:00 Intake Total 2340 ml Output Total 1745 ml Balance 595 ml Laboratory Data 24H LABS Laboratory Tests 2 04/25/19 05:33: Immature Granulocyte % (Auto) 3.2H, White Blood Count 7.6, Red Blood Count 3.49L, Hemoglobin 10.4L, Hematocrit 31.2L, Mean Corpuscular Volume 89.4, Mean Corpuscular Hemoglobin 29.8, Mean Corpuscular Hemoglobin Concent 33.3, Red Cell Distribution Width 15.5H, Platelet Count 161, Neutrophils (%) (Auto) 74.7H, L ymphocytes (%) (Auto) 9.8L, Monocytes (%) (Auto) 11.5H, Eosinophils (%) (Auto) 0.5, Basophils (%) (Auto) 0.3, Neutrophils # (Auto) 5.7, Lymphocytes # (Auto) 0.7L, Monocytes # (Auto) 0.9H, Eosinophils # (Auto) 0.0, Basophils # (Auto) 0.0, Nucleated Red Blood Cells % (auto) 0.0, Anion Gap 7L, Glomerular Filtration Rate > 60.0, Blood Urea Nitrogen 10, Creatinine 0.74, Sodium Level 140, Potassium Level 3.8, Chloride Level 110H, Carbon Dioxide Level 23, Calcium Level 8.0L, Aspartate Amino Transf (AST/SGOT) 50H, Alanine Aminotransferase (ALT/SGPT) 69, Alkaline Phosphatase 91, Total Bilirubin 0.4, Total Protein 6.0L, Albumin 1.9L, Magnesium Level 2.0, Albumin/Globulin Ratio 0.46L CBC/BMP Laboratory Tests 04/25/19 05:33 Red Blood Count 3.49 L, Mean Corpuscular Volume 89.4, Mean Corpuscular Hemoglobin 29.8, Mean Corpuscular Hemoglobin Concent 33.3, Red Cell Distribution Width 15.5 H, Neutrophils (%) (Auto) 74.7 H, Lymphocytes (%) (Auto) 9.8 L, Monocytes (%) (Auto) 11.5 H, Eosinophils (%) (Auto) 0.5, Basophils (%) (Auto) 0.3, Neutrophils # (Auto) 5.7, Lymphocytes # (Auto) 0.7 L, Monocytes # (Auto) 0.9 H, Eosinophils # (Auto) 0.0, Basophils # (Auto) 0.0, Calcium Level 8.0 L, Aspartate Amino Transf (AST/SGOT) 50 H, Alanine Aminotransferase (ALT/SGPT) 69, Alkaline Phosphatase 91, Total Bilirubin 0.4, Total Protein 6.0 L, Albumin 1.9 L Microbiology Microbiology 04/23/19 Blood Culture - Preliminary, Resulted No Growth after 48 hours. All Specime... 04/23/19 Blood Culture - Preliminary, Resulted No Growth after 48 hours. All Specime... 04/22/19 Blood Culture - Final, Complete Escherichia Coli 04/23/19 Anaerobic Culture, Received Pending 04/23/19 Gram Stain - Final, Resulted 04/23/19 Abscess Culture, Resulted Pending NAYANA ABDI MD Apr 25, 2019 13:28
[2019-04-25 14:00] VITALS: BP 150/76
[2019-04-25] MEDS: CHLORTHALIDONE 25 MG TAB PO SCH (14:49)
[2019-04-25] MEDS: ATORVASTATIN 20 MG TAB PO SCH (20:24)
[2019-04-25 20:27] VITALS: BP 137/84
[2019-04-25] MEDS ORDERED: amLODIPine 10 MG TAB PO SCH (21:00)
[2019-04-25 22:00] VITALS: BP 137/84
[2019-04-26] MEDS: PIPERACILLIN/TAZOBACTAM SOD 3.375 GM in D5W MINI-BAG PLUS 50 ML IV SCH ×4 (00:05→15:54)
[2019-04-26] MEDS: PERCOCET 5MG/325MG TAB PO PRN ×4 (00:06→12:52)
[2019-04-26 06:00] VITALS: BP 138/82
[2019-04-26 06:17] LABS: HEMATOCRIT 33.6 % (42.0-52.0); HEMOGLOBIN 11.5 g/dl (13.5-17.5); MEAN CORPUSCULAR HEMOGLOBIN 30.2 pg (27.0-33.0); MEAN CORPUSCULAR HGB CONC 34.2 g/dl (32.0-36.5); MEAN CORPUSCULAR VOLUME 88.2 fl (80.0-96.0); PLATELET COUNT, AUTOMATED 228 10^3/uL (150-450); RED BLOOD COUNT 3.81 10^6/uL (4.30-6.10); WHITE BLOOD COUNT 8.5 10^3/uL (4.0-10.0)
[2019-04-26 06:39] LABS: ALBUMIN 2.1 GM/DL (3.2-5.2); ALT/SGPT 59 U/L (12-78); BILIRUBIN,TOTAL 0.7 MG/DL (0.2-1.0); BLOOD UREA NITROGEN 6 MG/DL (7-18); CARBON DIOXIDE LEVEL 25 MEQ/L (21-32); CHLORIDE LEVEL 106 MEQ/L (98-107); CREATININE FOR GFR 0.59 MG/DL (0.70-1.30); GLOMERULAR FILTRATION RATE > 60.0 (>49); GLUCOSE, FASTING 108 MG/DL (70-100); MAGNESIUM LEVEL 1.9 MG/DL (1.8-2.4); POTASSIUM SERUM 3.4 MEQ/L (3.5-5.1); SODIUM LEVEL 140 MEQ/L (136-145); TOTAL PROTEIN 6.4 GM/DL (6.4-8.2)
[2019-04-26 06:50] LABS: ATYPICAL LYMPH 1 % (0-5); EOSINOPHILS 1 % (0-5); LYMPHOCYTES 14 % (16-52); METAMYELOCYTES 2 % (0-0); MONOCYTES 6 % (0-8); MYELOCYTES 2 % (0-0); NEUTROPHILS 74 % (35-75); PLATELET ESTIMATE NORMAL (NORMAL)
[2019-04-26] MEDS ORDERED: POTASSIUM CHLORIDE 10 MEQ SR TABLET PO ONE (07:45)
[2019-04-26] MEDS: PANTOPRAZOLE 40MG INJ (PROTONIX) (C9113) IV SCH (08:42)
[2019-04-26] MEDS: DOCUSATE SODIUM 100 MG CAP PO SCH (08:43)
[2019-04-26] MEDS: FLUTICASONE PROP 0.05% NASAL SPRAY 16 GM (FLONASE) NARES SCH (08:44)
[2019-04-26] MEDS: CHLORTHALIDONE 25 MG TAB PO SCH (08:44)
[2019-04-26] MEDS: FLECAINIDE 50MG TABLET PO SCH (08:44)
[2019-04-26] MEDS ORDERED: NORC1TAB8 PO (11:45)
[2019-04-26] MEDS ORDERED: METR-265 PO (11:48)
[2019-04-26] MEDS ORDERED: LEVA750T7 PO (11:48)
--- NOTE | 2019-04-26 11:49 | IPNPDOC ---
Subjective General Date/Time Seen The patient was seen on 04/26/19 at 11:48. Subject Chief Complaint/History The patient is a 68-year-old male admitted with a reason for visit of Abdominal Pain. Current Medications Current Medications Current Medications Acetaminophen (Tylenol Tab) 650 mg Q4HP PRN PO PAIN OR FEVER Last administered on 04/23/19 07:44; Start 04/22/19 at 03:45 Acetaminophen/ Hydrocodone Bitart (Anexsia, [place] 7.5mg/325mg) 1 tab QID PRN PO PAIN Last administered on 04/24/19 02:50; Start 04/21/19 at 11:15 Albuterol/ Ipratropium (Duoneb (Ipr 0.5mg/Alb 2.5mg)) 3 ml Q2HP PRN NEB SOB/WHEEZING Last administered on 04/23/19at 07:43; Start 04/23/19 at 00:45 Amlodipine Besylate (Norvasc) 10 mg QHS PO Last administered on 04/22/19 21:33; Start 04/19/19 at 21:00; Stop 04/23/19 at 07:56; Status DC Amlodipine Besylate (Norvasc) 10 mg QHS PO Last administered on 04/25/19 20:27; Start 04/25/19 at 21:00 Atorvastatin Calcium (Lipitor) 40 mg QHS PO Last administered on 04/25/19at 20:24; Start 04/19/19 at 21:00 Bisoprolol Fumarate (Zebeta) 5 mg DAILY PO ; Start 04/19/19 at 09:00; Status Cancel Bisoprolol Fumarate (Zebeta) 5 mg DAILY PO Last administered on 04/22/19at 08:21; Start 04/20/19 at 09:00; Stop 04/23/19 at 07:56; Status DC Chlorthalidone (Hygroton) 12.5 mg DAILY PO Last administered on 04/26/19 08:44; Start 04/25/19 at 09:00 Diatrizoate Meglum/ Diatrizoate Sod (Gastrografin) 10 ml Q30M PO ; Start 04/23/19 at 08:15; Stop 04/23/19 at 08:46; Status DC Docusate Sodium (Colace) 200 mg BID PO Last administered on 04/26/19 08:43; Start 04/21/19 at 09:00 Doxazosin Mesylate (Cardura) 4 mg QHS PO Last administered on 04/22/19at 21:33; Start 04/19/19 at 21:00; Stop 04/23/19 at 07:52; Status DC Fentanyl Citrate (Sublimaze) 25 mcg Q5MP PRN IV MODERATE PAIN (PS 4-7); Start 04/23/19 at 18:00; Stop 04/23/19 at 19:00; Status DC Flecainide Acetate (Tambocor) 100 mg BID PO Last administered on 04/26/19 08:44; Start 04/19/19 at 09:00 Fluticasone Propionate (Flonase 0.05% Nasal [place]) 2 SPRAYS IN EACH NOSTRIL DAILY NARES Last administered on 04/26/19 08:44; Start 04/20/19 at 09:00 Heparin Sodium (Porcine) (Heparin) 5,000 units Q8H SC Last administered on 04/23/19 06:09; Start 04/19/19 at 14:00; Stop 04/23/19 at 07:52; Status DC Home Med (Med Rec Complete!) ASDIRECTED XX ; Start 04/19/19 at 09:00; Stop 04/19/19 at 09:00; Status DC Hydromorphone HCl (Dilaudid) 0.2 mg Q5MP PRN IV MODERATE/SEVERE PAIN (PS 5-10); Start 04/23/19 at 18:00; Stop 04/23/19 at 19:00; Status DC Hydromorphone HCl (Dilaudid) 0.5 mg Q30M PRN IV MODERATE PAIN (PS 5-7) Last administered on 04/19/19 05:27; Start 04/19/19 at 02:45; Stop 04/19/19 at 05:27; Status DC Ketorolac Tromethamine (ToRADol) 30 mg Q6H IV Last administered on 04/23/19at 04:43; Start 04/20/19 at 11:00; Stop 04/23/19 at 07:52; Status DC Ketorolac Tromethamine (ToRADol) 30 mg Q6H PRN IV PAIN Last administered on 04/24/19at 23:31; Start 04/24/19 at 08:30; Stop 04/29/19 at 08:29 Lactated Ringer's 1,000 ml @ 100 mls/hr Q10H IV ; Start 04/23/19 at 18:00; Stop 04/23/19 at 19:00; Status DC Lactated Ringer's 1,000 ml @ 100 mls/hr Q10H IV ; Start 04/24/19 at 07:30; Status Cancel Metoclopramide HCl (REGLAN INJection) 10 mg Q6HP PRN IV NAUSEA OR VOMITING; Start 04/19/19 at 12:45; Stop 04/23/19 at 07:52; Status DC Morphine Sulfate (Morphine Sulfate Inj) 3 mg Q3HP PRN IV SEVERE PAIN (PS 8-10) Last administered on 04/22/19at 21:32; Start 04/19/19 at 12:30; Stop 04/24/19 at 08:31; Status DC Morphine Sulfate (Morphine Sulfate Inj) 4 mg Q2HP PRN IV SEVERE PAIN (PS 8-10) Last administered on 04/24/19at 00:18; Start 04/19/19 at 12:45; Stop 04/24/19 at 08:31; Status DC Morphine Sulfate (Morphine Sulfate Inj) 4 mg Q30M PRN IV SEVERE PAIN (PS 8-10) Last administered on 04/19/19at 08:29; Start 04/19/19 at 01:30; Stop 04/19/19 at 08:29; Status DC Ondansetron HCl (ZOFRAN INJection) 4 mg Q4HP PRN IV NAUSEA OR VOMITING; Start 04/23/19 at 18:00; Stop 04/23/19 at 19:00; Status DC Ondansetron HCl (ZOFRAN INJection) 4 mg Q6HP PRN IV NAUSEA OR VOMITING; Start 04/19/19 at 12:45 Oxycodone/ Acetaminophen (Percocet 5mg/ 325mg Tablet) 1 tab Q4HP PRN PO MODERATE PAIN (PS 5-7) Last administered on 04/21/19at 10:58; Start 04/19/19 at 12:45; Stop 04/21/19 at 11:13; Status DC Oxycodone/ Acetaminophen (Percocet 5mg/ 325mg Tablet) 1 tab Q4HP PRN PO MILD/MODERATE PAIN (PS 1-7) Last administered on 04/26/19 08:43; Start 04/24/19 at 08:30 Oxycodone/ Acetaminophen (Percocet 5mg/ 325mg Tablet) 2 tab Q4HP PRN PO SEVERE PAIN (PS 8-10) Last administered on 04/25/19 20:26; Start 04/24/19 at 08:30 Oxycodone/ Acetaminophen (Percocet 5mg/ 325mg Tablet) 2 tab Q6HP PRN PO SEVERE PAIN (PS 8-10); Start 04/19/19 at 12:45; Stop 04/21/19 at 11:13; Status DC Pantoprazole Sodium (Protonix) 40 mg BID IV Last administered on 04/26/19 08:42; Start 04/19/19 at 21:00 Pantoprazole Sodium (Protonix) 40 mg DAILY IV Last administered on 04/19/19at 12:40; Start 04/19/19 at 09:00; Stop 04/19/19 at 12:47; Status DC Piperacillin Sod/ Tazobactam Sod 3.375 gm/Dextrose 50 ml @ 50 mls/hr Q6H IV ; Start 04/19/19 at 13:00; Status Cancel Piperacillin Sod/ Tazobactam Sod 3.375 gm/Dextrose 50 ml @ 50 mls/hr Q6H IV Last administered on 04/26/19at 10:39; Start 04/19/19 at 16:00 Potassium Chloride/Sodium Chloride 1,000 ml @ 125 mls/hr Q8H IV Last administered on 04/24/19at 02:50; Start 04/20/19 at 07:18; Stop 04/24/19 at 07:23; Status DC Simethicone (Mylicon) 120 mg QIDP PO ; Start 04/20/19 at 09:00; Stop 04/20/19 at 09:00; Status DC Simethicone (Mylicon) 120 mg QIDP PRN PO GAS PAIN Last administered on 04/22/19at 14:03; Start 04/20/19 at 09:00; Stop 04/23/19 at 07:52; Status DC Sodium Chloride 1,000 ml @ 125 mls/hr Q8H IV Last administered on 04/19/19at 22:18; Start 04/19/19 at 12:34; Stop 04/20/19 at 07:18; Status DC Sodium Chloride 1,000 ml @ 150 mls/hr Q6H40M IV Last administered on 04/19/19at 07:56; Start 04/19/19 at 07:27; Stop 04/19/19 at 12:44; Status DC Sucralfate (Carafate) 1 gm ACHS PO Last administered on 04/22/19at 11:54; Start 04/19/19 at 12:45; Stop 04/22/19 at 12:34; Status DC Zolpidem Tartrate (Ambien) 10 mg QHS PRN PO FOR SLEEP Last administered on at 01:30; Start 04/20/19 at 22:00; Stop 04/23/19 at 07:52; Status DC Allergies Coded Allergies: lisinopril (Verified Allergy, Severe, FACIAL SWELLING, 04/19/19) clarithromycin (Verified Allergy, Intermediate, HIVES, 04/19/19) Objective Physical Examination Examination GENERAL APPEARANCE:[Patient seen, laying in bed, awake, alert, and oriented. Comfortable, in no acute distress]. SKIN: [Warm and moist]. HEENT: [Normocephalic, atraumatic. [place]ale palpebral conjunctiva, anicteric sclerae. Lips and mucosa appear moist]. NECK: [Supple, no thyromegaly. No obvious jugular venous distention]. LUNGS: [Clear to auscultation bilaterally. No wheezing appreciated]. HEART: [No chest wall abnormalities. Regular rate and rhythm with no murmurs appreciated]. ABDOMEN: Abdomen is , soft, . [No hepatosplenomegaly. No umbilical or groin herniations, nondistended. No noticeable rebound or guarding. No grimacing with palpation. No rebound tenderness. No masses appreciated]. EXTREMITIES: [Extremities have no deformities. No edema identified]. Vital Signs Vital Signs Date Time Temp Pulse Resp B/P (MAP) Pulse Ox O2 Delivery O2 Flow Rate FiO2 04/26/19 09:40 18 04/26/19 06:00 98.1 60 138/82 (100) 92 04/26/19 04:19 2.0 I&Os I&O- Last 24 Hours up to 6 AM 04/26/19 06:00 Intake Total 2140 ml Output Total 3005 ml Balance -865 ml Laboratory Data Labs 24H Laboratory Tests 2 04/26/19 05:44: Immature Granulocyte % (Auto) , Nucleated Red Blood Cells % (auto) 0.0, Neutrophils 74, Lymphocytes (Manual) 14L, Monocytes (Manual) 6, Eosinophils (Manual) 1, Metamyelocytes 2H, Myelocytes 2H, Atypical Lymphocytes 1, Platelet Estimate NORMAL, Red Blood Cell Morphology NORMAL, Anion Gap 9, Glomerular Filtration Rate > 60.0, Blood Urea Nitrogen 6L, Creatinine 0.59L, Sodium Level 140, Potassium Level 3.4L, Chloride Level 106, Carbon Dioxide Level 25, Calcium Level 8.0L, Aspartate Amino Transf (AST/SGOT) 41H, Alanine Aminotransferase (ALT/SGPT) 59, Alkaline Phosphatase 87, Total Bilirubin 0.7#, Total Protein 6.4, Albumin 2.1L, Magnesium Level 1.9, Albumin/Globulin Ratio 0.49L CBC/BMP Laboratory Tests 04/26/19 05:44 Red Blood Count 3.81 L, Mean Corpuscular Volume 88.2, Mean Corpuscular Hemoglobin 30.2, Mean Corpuscular Hemoglobin Concent 34.2, Red Cell Distribution Width 15.4 H, Calcium Level 8.0 L, Aspartate Amino Transf (AST/SGOT) 41 H, Alanine Aminotransferase (ALT/SGPT) 59, Alkaline Phosphatase 87, Total Bilirubin 0.7 #, Total Protein 6.4, Albumin 2.1 L Microbiology Microbiology 04/23/19 Blood Culture - Preliminary, Resulted No Growth after 72 hours. All specime... 04/23/19 Blood Culture - Preliminary, Resulted No Growth after 72 hours. All specime... 04/22/19 Blood Culture - Final, Complete Escherichia Coli 04/23/19 Anaerobic Culture - Final, Complete 04/23/19 Gram Stain - Final, Complete 04/23/19 Abscess Culture - Final, Complete Escherichia Coli Strep Gallolyticus Ssp Jackson Impression POD2 Open Cholecystectomy for Gangrenous Cholecystitis, liver abscess doing very well ok to go home d/c drain one week levaquin/metronidazole follow up with me in 2 weeks Plan / VTE VTE Prophylaxis Ordered?: Yes HEMANTH LAYTON MD Apr 26, 2019 11:49
--- NOTE | 2019-04-26 12:16 | IPNPDOC ---
Date Seen The patient was seen on 04/26/19. Progress Note SUBJECTIVE: Mr. James was seen and examined on rounds this morning sitting in his chair. He states that there is mild tenderness over his incision site. He states that he had a loose bowel movement this morning. He states that his abdominal distention is also improving. He has been tolerating diet without any acute complaints. He states that he was urinating frequently over night, approximately every 15 minutes. He reports his lower extremity edema is improving. He denies abdominal pain, nausea, vomiting, cp, sob, dizziness, and headache. He is eager to go home and says he is feeling much improved over the last few days. OBJECTIVE PHYSICAL EXAMINATION: VITAL SIGNS: Please see below. General Exam: Positive: Alert, Cooperative, No Acute Distress ENT Exam: Positive: Atraumatic, Mucous membr. moist/pink Neck Exam: Negative: JVD Respiratory Exam: Positive: Clear to auscultation, Normal air movement Heart Exam: Positive: Rate Normal, Normal S1, Normal S2 Abdomen Exam: Positive: Soft, Other (+GINI drain ); Negative: Tenderness Extremity Exam: Negative: Tenderness, Swelling Psych Exam: Positive: Oriented x 3 LABORATORY DATA, IMAGING STUDIES, MICROBIOLOGY: Please see below. IMAGIN. CT Abdomen/Pelvis 04/23: -Acute cholecystitis. Possible secondary duodenitis. -Bibasilar atelectasis and small pleural effusions. -Subtle subcutaneous fatty infiltration overlying the visualized left hip is nonspecific but should be correlated with physical examination to exclude subtle bruising or cellulitis. -Further chronic stable changes. 2. Chest CT 04/23: -Mild bibasilar atelectasis and small pleural effusions. -Limited upper abdomen demonstrates acute cholecystitis. 3. Chest X-ray 04/23: No acute finding. 4. Gallbladder HIDA Scan 04/20: - Nonvisualization of the gallbladder. Findings consistent with cystic duct obstruction. 5. Abdomen X-ray 04/20: Nonspecific bowel pattern. 6. Gallbladder Ultrasound 04/19: -Dilated gallbladder with mild wall thickening and evidence for cholelithiasis. -Findings are equivocal for acute cholecystitis by sonographic evaluation and r equire correlation. 7. CT Abdomen/Pelvis 04/19: - Markedly distended gallbladder and cholelithiasis. -Large sliding hiatal hernia. -Duodenal diverticulosis without evidence for diverticulitis. -Enlarged prostate gland and a diverticulum arising from the urinary bladder. DVT prophylaxis ordered?: SCDs/TEDs ASSESSMENT AND PLAN: This is a 68-year-old male with a past medical history of A. fib, s/p pacemaker implantation, HTN, DLP, and umbilical hernia, who presented with abdominal pain and vomiting. S/p open cholecystectomy on 04/[address] Beckham of General Surgery. PROBLEMS: 1. Sepsis 2/2 acute cholecystitis with surrounding liver abscess -s/p open cholecystectomy on 04/23/[address] Beckham of Gen Surg -Patient afebrile, and hemodynamically stable thereafter. -States that he is feeling well this AM and is tolerating advanced diet well -C/w Zosyn until OR cultures available s/p Acute metabolic encephalopathy - likely 2/2 sepsis - Reported confusion has fully resolved - No focal deficits 2. Blood Cultures positive for E. Coli from 04/22/19 2/2 Above -C/w Zosyn -Repeat blood cultures from 04/23 negative thus far -OR Cultures from 04/23 pending -We will cont to monitor 3. A. fib -s/p pacemaker implantation -On Flecainide and Bisoprolol (held) -Not on full anticoagulation; currently on ASA 325 alone; will hold 2/2 recent surgery 4. HTN -Continue Norvasc, chlorthalidone 5. DLP -Atorvastatin 6. Gastrointestinal prophylaxis -Protonix BID 7. DVT prophylaxis -SCDs/TEDs DISPOSITION: Patient is feeling well this morning and is clinically improving s/p open cholecystecomy on 04/23. He is tolerating advanced diet well and only has mild tenderness over his incision site. Will continue to monitor blood cultures. OR cultures from 04/23 are still pending. C/w Zosyn until OR cultures are available. Patient is hemodynamically stable and eager to go home. VS, I&O, 24H, Fishbone Vital Signs/I&O Vital Signs Date Time Temp Pulse Resp B/P (MAP) Pulse Ox O2 Delivery O2 Flow Rate FiO2 04/26/19 09:40 18 04/26/19 06:00 98.1 60 138/82 (100) 92 04/26/19 04:19 2.0 I&O- Last 24 Hours up to 6 AM 04/26/19 06:00 Intake Total 2140 ml Output Total 3005 ml Balance -865 ml Laboratory Data 24H LABS Laboratory Tests 2 04/26/19 05:44: Immature Granulocyte % (Auto) , Nucleated Red Blood Cells % (auto) 0.0, Neutrop hils 74, Lymphocytes (Manual) 14L, Monocytes (Manual) 6, Eosinophils (Manual) 1, Metamyelocytes 2H, Myelocytes 2H, Atypical Lymphocytes 1, Platelet Estimate NORMAL, Red Blood Cell Morphology NORMAL, Anion Gap 9, Glomerular Filtration Rate > 60.0, Blood Urea Nitrogen 6L, Creatinine 0.59L, Sodium Level 140, Potassium Level 3.4L, Chloride Level 106, Carbon Dioxide Level 25, Calcium Level 8.0L, Aspartate Amino Transf (AST/SGOT) 41H, Alanine Aminotransferase (ALT/SGPT) 59, Alkaline Phosphatase 87, Total Bilirubin 0.7#, Total Protein 6.4, Albumin 2.1L, Magnesium Level 1.9, Albumin/Globulin Ratio 0.49L CBC/BMP Laboratory Tests 04/26/19 05:44 Red Blood Count 3.81 L, Mean Corpuscular Volume 88.2, Mean Corpuscular Hemoglobin 30.2, Mean Corpuscular Hemoglobin Concent 34.2, Red Cell Distribution Width 15.4 H, Calcium Level 8.0 L, Aspartate Amino Transf (AST/SGOT) 41 H, Alanine Aminotransferase (ALT/SGPT) 59, Alkaline Phosphatase 87, Total Bilirubin 0.7 #, Total Protein 6.4, Albumin 2.1 L Microbiology Microbiology 04/23/19 Blood Culture - Preliminary, Resulted No Growth after 72 hours. All specime... 04/23/19 Blood Culture - Preliminary, Resulted No Growth after 72 hours. All specime... 04/22/19 Blood Culture - Final, Complete Escherichia Coli 04/23/19 Anaerobic Culture - Final, Complete 04/23/19 Gram Stain - Final, Complete 04/23/19 Abscess Culture - Final, Complete Escherichia Coli Strep Gallolyticus Ssp Jackson GME ATTESTATION GME ATTESTATION My faculty preceptor for this patient encounter was physically present during t he encounter and was fully available. All aspects of the patient interview, examination, medical decision making process, and medical care plan development were reviewed and approved by the faculty preceptor. The faculty preceptor is aware and concurs with the plan as stated in the body of this note and will attest to such by his/her cosignature. ATTENDING NOTE I, Jose Luis Lorenzo, have independently examined this patient and performed my own physical exam, as well as reviewed the documentation and edited where necessary. I have discussed in detail with the resident / student the findings and plan of treatment as documented by the resident / student and edited their note. I agree with their findings and treatment plan and have edited their documentation. I will continue to follow the patient during this hospital stay. IMTIAZ JACKSON S-3 Apr 26, 2019 12:15 JOSE LUIS LORENZO MD Apr 26, 2019 16:21
[2019-04-26 14:00] VITALS: BP 159/88
[2019-04-26] MEDS ORDERED: CEFDINIR 300 MG CAP (OMNICEF) PO SCH (21:00)
== END 2019-04-26 18:15 | disposition home or self-care (01) | DRG 414 ==
LOC: M ED 00:31 → M ED INP 12:34 → M MSPAV 14:40 → OBSVTOIN 04-22 16:04 → M ICU 04-23 08:23 → M MSPAV 04-24 17:55
PROVIDERS: ADMIT Surgery; ATTEND Surgery
PROC: 0F904ZZ Drainage of Liver, Percutaneous Endoscopic Approach (ICD-10-PCS; 2019-04-23)
PROC: 0FT40ZZ Resection of Gallbladder, Open Approach (ICD-10-PCS; principal; 2019-04-23 09:28)
DX: K80.62 Calculus of gallbladder and bile duct with acute cholecystitis without obstruction (principal); K75.0 Abscess of liver; A41.51 Sepsis due to Escherichia coli [E. coli]; E87.2 Acidosis; K56.7 Ileus, unspecified; K57.10 Diverticulosis of small intestine without perforation or abscess without bleeding; I48.91 Unspecified atrial fibrillation; I10 Essential (primary) hypertension; E78.5 Hyperlipidemia, unspecified; Z96.653 Presence of artificial knee joint, bilateral; Z95.0 Presence of cardiac pacemaker; Z79.82 Long term (current) use of aspirin; Z79.899 Other long term (current) drug therapy; Z88.8 Allergy status to other drugs, medicaments and biological substances; Z53.31 Laparoscopic surgical procedure converted to open procedure

== ENCOUNTER → 2019-07-06 | Outpatient (CLI) | payer MEDICARE, OTHER ==
[~2019-07-06] MED LIST changes: +AMBI10TA PO; +AMLO10TA5; +AMLO10TA5 PO; +ASPI-1 PO; +ATOR40TA75 PO; +BISO5TAB9 PO; +CHLO125TA; +CHLO25TA PO; +DOXA1TAB49 PO; +FLEC1TAB PO; +FLON1SPR NARES; +LANS30CA PO; +LANS30CA93; +LEVA750T7 PO; +METR-265 PO; +NORC1TAB8 PO
--- NOTE | 2019-07-06 18:42 | REP ---
RIGHT SHOULDER, THREE VIEWS: Three views of the right shoulder are performed. There is no acute fracture or dislocation. There is mild narrowing and spurring at the acromioclavicular joint. IMPRESSION: Mild degenerative changes of the AC joint. Electronically Signed by Raymond Long MD 07/07/2019 10:52 A
== END ==
LOC: M ADAMS 16:08
PROVIDERS: ATTEND Physician Assistant Medical
DX: M19.011 Primary osteoarthritis, right shoulder (principal)

== ENCOUNTER → 2019-07-11 | Outpatient (REF) | payer MEDICARE, OTHER ==
[~2019-07-11] MED LIST changes: +ALL10TAB29 PO; +BISO5TAB14 PO; -BISO5TAB9 PO; +CETI10CH PO; +FLON1SPR; -FLON1SPR NARES; +MULTCHW12 PO; +POTA20TA6 PO; +XARE15TA PO
[2019-07-11 13:04] LABS: HEMATOCRIT 43.3 % (42.0-52.0); HEMOGLOBIN 14.2 g/dl (13.5-17.5); MEAN CORPUSCULAR HEMOGLOBIN 29.6 pg (27.0-33.0); MEAN CORPUSCULAR HGB CONC 32.8 g/dl (32.0-36.5); MEAN CORPUSCULAR VOLUME 90.4 fl (80.0-96.0); PLATELET COUNT, AUTOMATED 188 10^3/uL (150-450); RED BLOOD COUNT 4.79 10^6/uL (4.30-6.10); WHITE BLOOD COUNT 6.4 10^3/uL (4.0-10.0)
[2019-07-11 13:21] LABS: HEMOGLOBIN A1c 5.4 %
[2019-07-11 13:32] LABS: ALBUMIN 3.9 GM/DL (3.2-5.2); ALT/SGPT 23 U/L (12-78); BILIRUBIN,TOTAL 0.4 MG/DL (0.2-1.0); BLOOD UREA NITROGEN 21 MG/DL (7-18); CALCIUM LEVEL 9.4 MG/DL (8.8-10.2); CARBON DIOXIDE LEVEL 24 MEQ/L (21-32); CHLORIDE LEVEL 109 MEQ/L (98-107); CHOLESTEROL LEVEL 157 MG/DL (<200); CHOLESTEROL RISK RATIO 2.242 (<5); CREATININE FOR GFR 0.92 MG/DL (0.70-1.30); GLOMERULAR FILTRATION RATE > 60.0 (>49); GLUCOSE, FASTING 90 MG/DL (70-100); HDL CHOLESTEROL 70 MG/DL (>40); LDL CHOLESTEROL 73 MG/DL (<100); MAGNESIUM LEVEL 1.9 MG/DL (1.8-2.4); NON-HDL-C 87 MG/DL; POTASSIUM SERUM 4.1 MEQ/L (3.5-5.1); SODIUM LEVEL 143 MEQ/L (136-145); TRIGLYCERIDES LEVEL 68 MG/DL (<150)
[2019-07-11 13:39] LABS: VITAMIN B12 LEVEL 299 PG/ML
== END ==
LOC: M SFHCADAM 07:32
PROVIDERS: ATTEND Internal Medicine
DX: Z86.010 Personal history of colon polyps (principal); E78.00 Pure hypercholesterolemia, unspecified; I10 Essential (primary) hypertension; R73.01 Impaired fasting glucose; G62.9 Polyneuropathy, unspecified

== ENCOUNTER 2019-09-13 15:27 | Observation (INO) | payer MEDICARE, OTHER ==
[2019-09-12] MEDS: THIAMINE 100 MG TAB PO SCH (21:00)
[~2019-09-13] VITALS: Ht 175.3 cm; Wt 89.1 kg
[~2019-09-13 15:27] MED LIST changes: -ALL10TAB29 PO; -CETI10CH PO; -MULTCHW12 PO; -POTA20TA6 PO; -XARE15TA PO
[2019-09-13] MEDS ORDERED: RIVAROXABAN 10 MG TAB (XARELTO) PO SCH (18:00)
[2019-09-13] MEDS ORDERED: CETI10CH PO (19:18)
[2019-09-13] MEDS ORDERED: ONDANSETRON 4MG/2ML VIAL (J2405) IV ONE (19:45)
[2019-09-13] MEDS ORDERED: KETOROLAC 30 MG/ML VIAL (J1885) IV ONE (19:45)
[2019-09-13] MEDS ORDERED: NS 1,000 ML IV ONE (19:45)
[2019-09-13 20:25] LABS: BASO % 0.3 % (0.0-1.0); EOS % 0.6 % (0.0-3.0); HEMATOCRIT 41.3 % (42.0-52.0); HEMOGLOBIN 13.8 g/dl (13.5-17.5); LYMPH # 0.8 10^3/uL (1.5-5.0); LYMPH % 10.7 % (24.0-44.0); MEAN CORPUSCULAR HEMOGLOBIN 29.7 pg (27.0-33.0); MEAN CORPUSCULAR HGB CONC 33.4 g/dl (32.0-36.5); MONO # 0.7 10^3/uL (0.0-0.8); NEUTROPHILS # 5.6 10^3/uL (1.5-8.5); NEUTROPHILS % 77.7 % (36.0-66.0); PLATELET COUNT, AUTOMATED 131 10^3/uL (150-450); RED BLOOD COUNT 4.64 10^6/uL (4.30-6.10); WHITE BLOOD COUNT 7.2 10^3/uL (4.0-10.0)
[2019-09-13] MEDS: THIAMINE 100 MG TAB PO SCH (21:00)
--- NOTE | 2019-09-13 21:25 | REPVR ---
PROCEDURE INFORMATION: Exam: US Abdomen Limited, Right Upper Quadrant Exam date and time: 09/13/2019 8:40 PM Age: 68 years old Clinical history: Abdominal pain; Acute; Prior surgery; Surgery date: 1-6 months; Surgery type: Cholecystectomy; Additional info: Eval cbd for source of pancreatitis TECHNIQUE: Imaging protocol: Real-time ultrasound of the abdomen with image documentation. Examination was focused on the right upper quadrant. COMPARISON: GALLBLADDER US 04/19/2019 7:23 AM FINDINGS: Liver: Normal. No masses. Gallbladder: There has been prior cholecystectomy. Common bile duct: No biliary duct dilation. Pancreas: Visualized pancreas is unremarkable. Right kidney: A hypoechoic lobulation in the midportion of the right kidney is unchanged. Right kidney is otherwise unremarkable. No hydronephrosis. IMPRESSION: 1. Prior cholecystectomy. 2. No biliary duct dilation or acute findings. Electronically signed by: Boby Castano On 09/13/2019 21:25:42 PM
[2019-09-13] MEDS ORDERED: ALL10TAB29 PO (22:16)
[2019-09-13] MEDS ORDERED: NORC1TAB8 PO (22:16)
[2019-09-13] MEDS ORDERED: MULTCHW12 PO (22:16)
[2019-09-13] MEDS ORDERED: POTA20TA6 PO (22:17)
[2019-09-13] MEDS ORDERED: ANEXSIA, NORCO 7.5MG/325MG TABLET(HYDROCODONE/APAP) PO PRN (22:45)
[2019-09-13] MEDS: NS 1,000 ML IV SCH (23:02)
--- NOTE | 2019-09-13 23:02 | HPEPDOC ---
General Date of Admission 09/13/19 Date of Service: Sep 13, 2019 Chief Complaint The patient is a 68-year-old male admitted with a reason for visit of abnormal labs/ abd pain. Source: Patient Exam Limitations: No limitations Timing/Duration: Day(s) Severity: Mild Associated Symptoms: Nausea History of Present Illness Patient is 68 years old male with past medical history of hypertension, hyperlipidemia, atrial fibrillation presented hospital with epigastric pain started 4 days ago after he ate fatty food and drank alcohol at wedding constitution party. He described the pain as 6 out of 10, constant with no radiation associated with nausea. Patient denies fever, chills, diarrhea, vomiting. He did not notice any black stool or blood in his stool. For past 3 days his pain was intermittent and today he decided to go to urgent care. Blood result showed abnormal LFT and elevated lipase level. Of note, patient drinks hard liquor 4-5 times in a week, usually 2-3 shots In emergency room patient was found to have no leukocytosis, transaminitis with ALT 418, AST 161, lipase level was over 7000. Abdominal ultrasound showed no biliary duct dilatation. Home Medications Scheduled Amlodipine Besylate (Amlodipine Besylate) 10 Mg Tablet, 10 MG PO QPM, (Reported) 1700 Aspirin (Aspirin) 325 Mg Tablet, 325 MG PO DAILY, (Reported) Atorvastatin Calcium (Atorvastatin Calcium) 40 Mg Tablet, 40 MG PO QPM, (Reported) 1700 Bisoprolol Fumarate (Bisoprolol Fumarate) 5 Mg Tablet, 5 MG PO DAILY, (Reported) Cetirizine HCl (Cetirizine HCl) 10 Mg Tablet, 10 MG PO DAILY, (Reported) Chlorthalidone (Chlorthalidone) 25 Mg Tablet, 12.5 MG PO DAILY, (Reported) Doxazosin Mesylate (Doxazosin Mesylate) 8 Mg Tablet, 4 MG PO QPM, (Reported) 1700 Flecainide Acetate (Flecainide Acetate) 100 Mg Tablet, 100 MG PO BID, (Reported) Fluticasone Propionate (Flonase Allergy Relief) 9.9 Ml [place].susp, 2 SPRAYS NA DAILY, (Reported) Folic Acid/Multivit-Min/Lutein (Multi-Vitamin Gummies) 1 Each Tab.chew, 2 CHW PO DAILY, (Reported) Lansoprazole (Lansoprazole) 30 Mg Capsule.dr, 30 MG PO BID, (Reported) Potassium Chloride (Potassium Chloride) 20 Meq Tab.er.prt, 20 MEQ PO DAILY, (Reported) Scheduled PRN Hydrocodone/Acetaminophen ([place] 7.5-325 Tablet) 1 Each Tablet, 1 TAB PO Q6H PRN for PAIN, (Reported) Zolpidem Tartrate (Ambien) 10 Mg Tablet, 10 MG PO QHS PRN for SLEEP, (Reported) Allergies Coded Allergies: lisinopril (Verified Allergy, Severe, FACIAL SWELLING, 04/19/19) clarithromycin (Verified Allergy, Intermediate, HIVES, 04/19/19) Past Medical History Medical History 1. A fib 2. s/p pacemaker implantation 3. HTN 4. DLP 5. Umbilical hernia Surgical History 1. B/ knee replacements 2. s/p pacemaker implantation 3. Umbilical hernia repair Family History Mother from stroke, father had aortic aneurysm Social History * Smoker: Denies Alcohol: heavy (4-5 times in a week, 2 to 3 shots of wiskey) Drugs: denies A-FIB/CHADSVASC A-FIB History Current/History of A-Fib/PAF?: Yes Current PO Anticoag Therapy: No Review of Systems Constitutional: Denies: Chills, Fever Eyes: Denies: Pain, Vision change ENT: Denies: Head Aches, Ear Pain Skin: Denies: Rash Pulmonary: Denies: Dyspnea, Cough Cardiovascular: Denies: Chest Pain, Palpitations Gastrointestinal: Reports: Nausea, Abdominal Pain; Denies: Diarrhea Genitourinary: Denies: Dysuria, Frequency Hematologic: Denies: Bruising, Bleeding Excessively Endocrine: Denies: Polydipsia, Polyphagia Musculoskeletal: Denies: Neck Pain, Back Pain Neurological: Denies: Weakness, Numbness Psych: Reports: Mood Normal Physical Examination General Exam: Positive: Alert, Cooperative Eye Exam: Positive: PERRLA, Conjunctiva & lids normal, EOMI ENT Exam: Positive: Atraumatic Neck Exam: Positive: Supple; Negative: JVD Chest Exam: Positive: Clear to auscultation Heart Exam: Positive: Regular Rhythm, Irregular Rhythm Telemetry: Positive: No significant arrhythmia, Atrial fibrillation Abdomen Exam: Positive: BS Hypoactive, Tenderness (in epigastric area) Extremity Exam: Negative: Clubbing, Cyanosis Skin Exam: Positive: Nl turgor and temperature Neuro Exam: Positive: Normal Gait, Strength at 5/5 X4 ext Psych Exam: Positive: Mental status NL Vital Signs Vital Signs Date Time Temp Pulse Resp B/P (MAP) Pulse Ox O2 Delivery O2 Flow Rate FiO2 09/13/19 22:17 96.8 60 18 130/73 (92) 95 Room Air Laboratory Data Labs 24H Laboratory Tests 2 09/13/19 19:40: Immature Granulocyte % (Auto) 0.7, Neutrophils (%) (Auto) 77.7H, Lymphocytes (%) (Auto) 10.7L, Monocytes (%) (Auto) 10.0H, Eosinophils (%) (Auto) 0.6, Basophils (%) (Auto) 0.3, Neutrophils # (Auto) 5.6, Lymphocytes # (Auto) 0.8L, Monocytes # (Auto) 0.7, Eosinophils # (Auto) 0.0, Basophils # (Auto) 0.0, Nucleated Red Blood Cells % (auto) 0.0 09/13/19 19:47: Direct Bilirubin 0.9H 09/13/19 19:49: Lactic Acid Level 1.0 CBC/BMP Laboratory Tests 09/13/19 19:40 Microbiology Microbiology 09/13/19 Blood Culture, Received Pending 09/13/19 Blood Culture, Received Pending Assessment/Plan Patient is 68 years old male with past medical history of hypertension, hyperlipidemia, atrial fibrillation presented hospital with epigastric pain st arted 4 days ago after he ate fatty food and drank alcohol at wedding constitution party. He described the pain as 6 out of 10, constant with no radiation associated with nausea. Problems (1) Pancreatitis Status: Acute Problem Text: Secondary to alcohol intake Patient did have cholecystectomy in April 2019, ultrasound didn't show common bile duct dilatation IV fluid Clear liquid diet I will proceed with CAT scan if patient does not improve tomorrow. Currently patient has mild abdominal pain around 2 out of 10 Pain management (2) Abdominal pain Status: Acute Problem Text: Secondary to acute pancreatitis See above (3) Atrial fibrillation Status: Chronic Problem Text: Patient was not on anticoagulation for unknown reason He had documented history of atrial fibrillation I will put him on xarelto c/w Flecainide and Bisoprolol (4) ETOH abuse Status: Chronic Problem Text: SIWA protocol PRN Plan / VTE VTE Prophylaxis Ordered?: No VTE Exclusion Mechanical Proph: Other (on Xarelto) DROZHZHIN,DORYS DO Sep 13, 2019 23:02
[2019-09-13] MEDS ORDERED: LORazepam 2 MG TAB PO PRN (23:15)
[2019-09-14 00:35] VITALS: BP 132/66
[2019-09-14 01:00] VITALS: BP 132/66
[2019-09-14] MEDS ORDERED: HYDROMORPHONE HCL 0.5 MG/ 0.5 ML SYRINGE (J1170 PER 1) IV PRN (01:30)
[2019-09-14] MEDS: THIAMINE 100 MG TAB PO SCH ×2 (01:35→08:14)
[2019-09-14] MEDS ORDERED: KETOROLAC 30 MG/ML VIAL (J1885) IV PRN (02:00)
[2019-09-14] MEDS: NS 1,000 ML IV SCH ×4 (02:36→11:05)
[2019-09-14 06:00] VITALS: BP 118/67
[2019-09-14 06:01] VITALS: BP 118/67
[2019-09-14 06:49] LABS: HEMOGLOBIN 12.2 g/dl (13.5-17.5); MEAN CORPUSCULAR VOLUME 90.9 fl (80.0-96.0); PLATELET COUNT, AUTOMATED 119 10^3/uL (150-450); RED BLOOD COUNT 4.07 10^6/uL (4.30-6.10); WHITE BLOOD COUNT 5.6 10^3/uL (4.0-10.0)
[2019-09-14 07:24] LABS: ALBUMIN 2.5 GM/DL (3.2-5.2); ALT/SGPT 221 U/L (12-78); BILIRUBIN,TOTAL 1.2 MG/DL (0.2-1.0); BLOOD UREA NITROGEN 14 MG/DL (7-18); CALCIUM LEVEL 8.1 MG/DL (8.8-10.2); CARBON DIOXIDE LEVEL 26 MEQ/L (21-32); CHLORIDE LEVEL 106 MEQ/L (98-107); GLOMERULAR FILTRATION RATE > 60.0 (>49); GLUCOSE, FASTING 75 MG/DL (70-100); MAGNESIUM LEVEL 1.7 MG/DL (1.8-2.4); POTASSIUM SERUM 3.1 MEQ/L (3.5-5.1); SODIUM LEVEL 139 MEQ/L (136-145); TOTAL PROTEIN 6.2 GM/DL (6.4-8.2)
[2019-09-14 08:20] VITALS: BP 119/72
[2019-09-14] MEDS ORDERED: BISOPROLOL FUMARATE 5 MG TAB PO SCH (09:00)
[2019-09-14] MEDS ORDERED: POTASSIUM CHLORIDE 10 MEQ SR TABLET PO SCH (09:00)
[2019-09-14] MEDS ORDERED: OMEPRAZOLE 20 MG CAP PO SCH (09:00)
[2019-09-14] MEDS ORDERED: CETIRIZINE (ZyrTEC) 10 MG TAB PO SCH (09:00)
[2019-09-14] MEDS ORDERED: ASPIRIN 325 MG TAB PO SCH (09:00)
[2019-09-14] MEDS ORDERED: FLECAINIDE 50MG TABLET PO SCH (09:00)
[2019-09-14] MEDS ORDERED: MULTIVITAMINS/MINERALS THERAP 1 TAB PO SCH (09:00)
[2019-09-14] MEDS ORDERED: CHLORTHALIDONE 12.5MG PER 1/2 TABLET PO SCH (09:00)
[2019-09-14] MEDS ORDERED: FOLIC ACID 1 MG TAB PO SCH (09:00)
[2019-09-14] MEDS ORDERED: FLUTICASONE PROP 0.05% NASAL SPRAY 16 GM (FLONASE) SCH (09:00)
[2019-09-14 13:30] LABS: LIPASE 4335 U/L (73-393)
[2019-09-14] MEDS ORDERED: ASPI-1 PO (16:06)
[2019-09-14] MEDS ORDERED: XARE15TA PO (16:06)
[2019-09-14] MEDS ORDERED: RIVAROXABAN 15 MG TAB (XARELTO) PO SCH (18:00)
[2019-09-14] MEDS ORDERED: amLODIPine 10 MG TAB PO SCH (21:00)
[2019-09-14] MEDS ORDERED: DOXAZOSIN MESYLATE 4 MG TAB PO SCH (21:00)
[2019-09-14] MEDS ORDERED: ATORVASTATIN 20 MG TAB PO SCH (21:00)
--- NOTE | 2019-09-14 21:31 | DS.PDOC ---
Discharge Summary General Date of Admission Sep 13, 2019 at 15:28 Date of Discharge 09/14/19 Discharge Summary PROCEDURES PERFORMED DURING STAY: None. ADMITTING DIAGNOSES: 1. Pancreatitis. DISCHARGE DIAGNOSES: 1.. Pancreatitis. COMPLICATIONS/CHIEF COMPLAINT: Abdominal Pain, Pancreatitis. HISTORY OF PRESENT ILLNESS &HOSPITAL COURSE: Patient is a 68-year-old male with PMH of HTN, HLD, atrial fibrillation not on anticoagulation, s/p cholecystectomy within in the last 6 months presents with pancreatitis. Patients pain was controlled, tolerated by mouth diet. At discharge, patient denies any headaches, changes in vision, chest pain, shortness of breath, resolution of abdominal pain, nausea, vomiting, no issues with voiding or stooling. Educated patient on alcohol cessation/reduction, low-fat diet. Patients chads score is 2, started patient on Xarelto, follow-up with PCP in 1-2 weeks. Reduce patients aspirin to 81 mg daily. He has no history of falls or GI bleed. No other changes in medication. Questions were answered. DISCHARGE MEDICATIONS: Please see below. ALLERGIES: Please see below. PHYSICAL EXAMINATION ON DISCHARGE: VITAL SIGNS: Please see below. GENERAL: male in no acute distress HEENT:. Normocephalic, atraumatic, moist mucous membranes NECK:, No lymphadenopathy CARDIOVASCULAR EXAMINATION: S1, S2 RESPIRATORY EXAMINATION:. Clear to auscultation bilaterally ABDOMINAL EXAMINATION:, Positive bowel sounds, nontender to palpation throughout, scar along the right subcostal region EXTREMITIES:. No edema SKIN:, Rash NEUROLOGICAL EXAMINATION: Able to move all extremities without difficulty, able to follow instructions PSYCHIATRIC EXAMINATION:. Appropriate affect, has capacity LABORATORY DATA: Please see below. IMAGING: Liver ultrasound, not suggestive of pancreatitis PROGNOSIS: Good ACTIVITY: As tolerated. DIET: Low-fat diet DISCHARGE PLAN:. Home DISPOSITION: Home, Self-Care. DISCHARGE INSTRUCTIONS: 1. See above. ITEMS TO FOLLOWUP ON ON OUTPATIENT: 1.. See above. DISCHARGE CONDITION: Stable. TIME SPENT ON DISCHARGE: 35 minutes. Vital Signs/I&Os Vital Signs Date Time Temp Pulse Resp B/P (MAP) Pulse Ox O2 Delivery O2 Flow Rate FiO2 09/14/19 08:20 60 119/72 09/14/19 06:01 97.9 18 93 Room Air I&O- Last 24 Hours up to 6 AM 09/14/19 06:00 Intake Total 1250 ml Balance 1250 ml Laboratory Data Labs 24H Laboratory Tests 2 09/14/19 06:36: Nucleated Red Blood Cells % (auto) 0.0, Anion Gap 7L, Glomerular Filtration Rate > 60.0, Calcium Level 8.1L, Magnesium Level 1.7L, Total Bilirubin 1.2H, Aspartate Amino Transf (AST/SGOT) 57H, Alanine Aminotransferase (ALT/SGPT) 221H, Alkaline Phosphatase 189H, Total Protein 6.2L, Albumin 2.5#L, Albumin/Globulin Ratio 0.68L, Lipase 4335H CBC/BMP Laboratory Tests 09/14/19 06:36 Microbiology Microbiology 09/13/19 Blood Culture - Preliminary, Resulted No growth after 24 hours . All specim... 09/13/19 Blood Culture - Preliminary, Resulted No growth after 24 hours . All specim... Discharge Medications Scheduled Amlodipine Besylate (Amlodipine Besylate) 10 Mg Tablet, 10 MG PO QPM, (Reported) 1700 Aspirin (Aspirin) 325 Mg Tablet, 81 MG PO DAILY Atorvastatin Calcium (Atorvastatin Calcium) 40 Mg Tablet, 40 MG PO QPM, (Reported) 1700 Bisoprolol Fumarate (Bisoprolol Fumarate) 5 Mg Tablet, 5 MG PO DAILY, (Reported) Cetirizine HCl (Cetirizine HCl) 10 Mg Tablet, 10 MG PO DAILY, (Reported) Chlorthalidone (Chlorthalidone) 25 Mg Tablet, 12.5 MG PO DAILY, (Reported) Doxazosin Mesylate (Doxazosin Mesylate) 8 Mg Tablet, 4 MG PO QPM, (Reported) 1700 Flecainide Acetate (Flecainide Acetate) 100 Mg Tablet, 100 MG PO BID, (Reported) Fluticasone Propionate (Flonase Allergy Relief) 9.9 Ml [place].susp, 2 SPRAYS NA DAILY, (Reported) Folic Acid/Multivit-Min/Lutein (Multi-Vitamin Gummies) 1 Each Tab.chew, 2 CHW PO DAILY, (Reported) Lansoprazole (Lansoprazole) 30 Mg Capsule.dr, 30 MG PO BID, (Reported) Potassium Chloride (Potassium Chloride) 20 Meq Tab.er.prt, 20 MEQ PO DAILY, (Reported) Rivaroxaban (Xarelto) 15 Mg Tablet, 15 MG PO DAILY@1800 Scheduled PRN Hydrocodone/Acetaminophen ([place] 7.5-325 Tablet) 1 Each Tablet, 1 TAB PO Q6H PRN for PAIN, (Reported) Zolpidem Tartrate (Ambien) 10 Mg Tablet, 10 MG PO QHS PRN for SLEEP, (Reported) Allergies Coded Allergies: lisinopril (Verified Allergy, Severe, FACIAL SWELLING, 04/19/19) clarithromycin (Verified Allergy, Intermediate, HIVES, 04/19/19) KIM FONSECA MD Sep 14, 2019 21:31
== END 2019-09-14 17:00 | disposition home or self-care (01) ==
LOC: M ED 15:27 → M ED INP 15:28 → M MS4PR 09-14 00:35
PROVIDERS: ADMIT Internal Medicine; ATTEND Internal Medicine
DX: K85.90 Acute pancreatitis without necrosis or infection, unspecified (principal); I10 Essential (primary) hypertension; I48.91 Unspecified atrial fibrillation; E78.49 Other hyperlipidemia; Z79.82 Long term (current) use of aspirin; Z88.8 Allergy status to other drugs, medicaments and biological substances; Z79.899 Other long term (current) drug therapy; Z95.0 Presence of cardiac pacemaker; F10.10 Alcohol abuse, uncomplicated
CPT/HCPCS: 36415; 76705; 80053; 82150; 82248; 83605; 83690; 83735; 85025; 85027; 87040; 96361; 96374; 96375; 99284; G0378; J1170; J1885; J2405

== ENCOUNTER → 2019-09-13 | Outpatient (REF) | payer MEDICARE, OTHER ==
[~2019-09-13] MED LIST changes: -BISO5TAB14 PO; +BISO5TAB9 PO
[2019-09-13 13:34] LABS: BASO % 0.2 % (0.0-1.0); HEMATOCRIT 44.9 % (42.0-52.0); HEMOGLOBIN 14.6 g/dl (13.5-17.5); LYMPH # 0.8 10^3/uL (1.5-5.0); LYMPH % 7.7 % (24.0-44.0); MEAN CORPUSCULAR HEMOGLOBIN 29.4 pg (27.0-33.0); MEAN CORPUSCULAR HGB CONC 32.5 g/dl (32.0-36.5); MEAN CORPUSCULAR VOLUME 90.5 fl (80.0-96.0); MONO % 9.2 % (0.0-5.0); NEUTROPHILS # 8.6 10^3/uL (1.5-8.5); NEUTROPHILS % 82.4 % (36.0-66.0); PLATELET COUNT, AUTOMATED 155 10^3/uL (150-450); RED BLOOD COUNT 4.96 10^6/uL (4.30-6.10); WHITE BLOOD COUNT 10.4 10^3/uL (4.0-10.0)
[2019-09-13 14:05] LABS: ALBUMIN 3.5 GM/DL (3.2-5.2); ALT/SGPT 418 U/L (12-78); AMYLASE 927 U/L (25-115); BILIRUBIN,TOTAL 2.4 MG/DL (0.2-1.0); BLOOD UREA NITROGEN 14 MG/DL (7-18); CALCIUM LEVEL 8.6 MG/DL (8.8-10.2); CARBON DIOXIDE LEVEL 29 MEQ/L (21-32); CHLORIDE LEVEL 99 MEQ/L (98-107); CREATININE FOR GFR 1.14 MG/DL (0.70-1.30); GLOMERULAR FILTRATION RATE > 60.0 (>49); GLUCOSE, FASTING 109 MG/DL (70-100); LIPASE 7738 U/L (73-393); POTASSIUM SERUM 3.5 MEQ/L (3.5-5.1); SODIUM LEVEL 137 MEQ/L (136-145); TOTAL PROTEIN 7.2 GM/DL (6.4-8.2)
== END ==
LOC: M LABDRWAD 12:40
PROVIDERS: ATTEND Physician Assistant Medical
DX: R10.9 Unspecified abdominal pain (principal)

== ENCOUNTER → 2019-12-30 | Outpatient (CLI) | payer MEDICARE, OTHER ==
[~2019-12-30] MED LIST changes: +ALL10TAB29 PO; +BISO5TAB14 PO; -BISO5TAB9 PO; +CETI10CH PO; +MULTCHW12 PO; +POTA20TA6 PO; +XARE15TA PO
[2019-12-30 12:03] LABS: HEMATOCRIT 45.3 % (42.0-52.0); MEAN CORPUSCULAR HEMOGLOBIN 29.5 pg (27.0-33.0); MEAN CORPUSCULAR HGB CONC 33.1 g/dl (32.0-36.5); MEAN CORPUSCULAR VOLUME 89.2 fl (80.0-96.0); PLATELET COUNT, AUTOMATED 187 10^3/uL (150-450); RED BLOOD COUNT 5.08 10^6/uL (4.30-6.10); WHITE BLOOD COUNT 5.9 10^3/uL (4.0-10.0)
[2019-12-30 12:21] LABS: ALBUMIN 4.3 GM/DL (3.2-5.2); ALT/SGPT 26 U/L (12-78); BILIRUBIN,TOTAL 0.7 MG/DL (0.2-1.0); BLOOD UREA NITROGEN 23 MG/DL (7-18); CALCIUM LEVEL 9.4 MG/DL (8.8-10.2); CARBON DIOXIDE LEVEL 28 MEQ/L (21-32); CHLORIDE LEVEL 106 MEQ/L (98-107); CREATININE FOR GFR 0.93 MG/DL (0.70-1.30); GLOMERULAR FILTRATION RATE > 60.0 (>42); GLUCOSE, FASTING 99 MG/DL (70-100); MAGNESIUM LEVEL 2.1 MG/DL (1.8-2.4); POTASSIUM SERUM 3.9 MEQ/L (3.5-5.1); SODIUM LEVEL 140 MEQ/L (136-145); TOTAL PROTEIN 7.5 GM/DL (6.4-8.2)
[2019-12-30 12:29] LABS: TOTAL 25(OH) VITAMIN D 23.1 NG/ML (30.0-100.0); VITAMIN B12 LEVEL 558 PG/ML (247-911)
== END ==
LOC: M PLALAB 10:24
PROVIDERS: ATTEND Internal Medicine Gastroenterology
DX: K85.10 Biliary acute pancreatitis without necrosis or infection (principal); R94.5 Abnormal results of liver function studies; K44.9 Diaphragmatic hernia without obstruction or gangrene; K21.9 Gastro-esophageal reflux disease without esophagitis; Z86.010 Personal history of colon polyps; E55.9 Vitamin D deficiency, unspecified
CPT/HCPCS: 36415; 80053; 82306; 82607; 83735; 85027; 90682; G0008; G0463

== ENCOUNTER → 2019-12-30 | Outpatient (REF) | payer MEDICARE, OTHER | LOC: M SFHCPLAZ 10:23 | PROVIDERS: ATTEND Internal Medicine | DX: I10 Essential (primary) hypertension (principal); Z53.8 Procedure and treatment not carried out for other reasons ==

== ENCOUNTER → 2020-08-21 | Outpatient (REF) | payer MEDICARE, OTHER ==
[~2020-08-21] MED LIST changes: -ALL10TAB29 PO; -AMLO10TA5; -AMLO10TA5 PO; +AMLO1TAB25; +AMLO1TAB25 PO; +CETI-24 PO
[2020-08-21 12:44] LABS: HEMOGLOBIN A1c 5.5 %
[2020-08-21 13:08] LABS: MAU/CREAT RATIO 71.8 MCG/MG (0.0-30.0)
[2020-08-21 13:22] LABS: ALBUMIN 4.1 GM/DL (3.2-5.2); ALT/SGPT 33 U/L (12-78); BILIRUBIN,TOTAL 0.7 MG/DL (0.2-1.0); BLOOD UREA NITROGEN 9 MG/DL (7-18); CALCIUM LEVEL 9.5 MG/DL (8.8-10.2); CARBON DIOXIDE LEVEL 27 MEQ/L (21-32); CHLORIDE LEVEL 108 MEQ/L (98-107); CHOLESTEROL LEVEL 137 MG/DL (<200); CHOLESTEROL RISK RATIO 2.322 (<5); CREATININE FOR GFR 0.98 MG/DL (0.70-1.30); GLOMERULAR FILTRATION RATE > 60.0 (>42); GLUCOSE, FASTING 101 MG/DL (70-100); HDL CHOLESTEROL 59 MG/DL (>40); LDL CHOLESTEROL 50 MG/DL (<100); MAGNESIUM LEVEL 1.9 MG/DL (1.8-2.4); NON-HDL-C 78 MG/DL; POTASSIUM SERUM 4.4 MEQ/L (3.5-5.1); SODIUM LEVEL 141 MEQ/L (136-145); TOTAL PROTEIN 7.5 GM/DL (6.4-8.2); TRIGLYCERIDES LEVEL 139 MG/DL (<150)
== END ==
LOC: M SFHCADAM 07:52
PROVIDERS: ATTEND Internal Medicine
DX: I10 Essential (primary) hypertension (principal); R73.01 Impaired fasting glucose; E78.00 Pure hypercholesterolemia, unspecified; Z12.5 Encounter for screening for malignant neoplasm of prostate
CPT/HCPCS: 80053; 80061; 82043; 83036; 83735; G0103

== ENCOUNTER → 2021-02-19 | Outpatient (REF) | payer MEDICARE, OTHER ==
[2021-02-19 13:09] LABS: HEMOGLOBIN A1c 5.9 %
[2021-02-19 13:28] LABS: ALBUMIN 3.7 GM/DL (3.2-5.2); ALT/SGPT 29 U/L (12-78); BILIRUBIN,TOTAL 0.4 MG/DL (0.2-1.0); BLOOD UREA NITROGEN 18 MG/DL (7-18); CALCIUM LEVEL 8.7 MG/DL (8.8-10.2); CARBON DIOXIDE LEVEL 24 MEQ/L (21-32); CHLORIDE LEVEL 106 MEQ/L (98-107); CREATININE FOR GFR 0.94 MG/DL (0.70-1.30); GLOMERULAR FILTRATION RATE > 60.0 (>42); GLUCOSE, FASTING 101 MG/DL (70-100); MAGNESIUM LEVEL 1.8 MG/DL (1.8-2.4); SODIUM LEVEL 140 MEQ/L (136-145)
[2021-02-19 13:40] LABS: MALB URINE SIEMENS 20.1 MG/L; MAU/CREAT RATIO 10.5 MCG/MG (0.0-30.0)
== END ==
LOC: M SFHCADAM 07:33
PROVIDERS: ATTEND Internal Medicine
DX: I10 Essential (primary) hypertension (principal); R73.01 Impaired fasting glucose

== ENCOUNTER → 2021-08-27 | Outpatient (REF) | payer MEDICARE, OTHER ==
[2021-08-27 13:54] LABS: BASO % 0.7 % (0.0-1.0); EOS # 0.2 10^3/uL (0.0-0.5); EOS % 2.7 % (0.0-3.0); HEMATOCRIT 45.1 % (42.0-52.0); HEMOGLOBIN 14.7 g/dl (13.5-17.5); LYMPH # 1.2 10^3/uL (1.5-5.0); LYMPH % 21.7 % (24.0-44.0); MEAN CORPUSCULAR HEMOGLOBIN 29.8 pg (27.0-33.0); MEAN CORPUSCULAR HGB CONC 32.6 g/dl (32.0-36.5); MEAN CORPUSCULAR VOLUME 91.5 fl (80.0-96.0); MONO # 0.5 10^3/uL (0.0-0.8); MONO % 8.2 % (2.0-8.0); NEUTROPHILS # 3.7 10^3/uL (1.5-8.5); NEUTROPHILS % 66.3 % (36.0-66.0); PLATELET COUNT, AUTOMATED 197 10^3/uL (150-450); RED BLOOD COUNT 4.93 10^6/uL (4.30-6.10); WHITE BLOOD COUNT 5.6 10^3/uL (4.0-10.0)
[2021-08-27 14:37] LABS: ALT/SGPT 32 U/L (12-78); BILIRUBIN,TOTAL 0.6 MG/DL (0.2-1.0); BLOOD UREA NITROGEN 17 MG/DL (7-18); CALCIUM LEVEL 9.9 MG/DL (8.8-10.2); CARBON DIOXIDE LEVEL 28 MEQ/L (21-32); CHLORIDE LEVEL 106 MEQ/L (98-107); CHOLESTEROL LEVEL 169 MG/DL (<200); CHOLESTEROL RISK RATIO 2.964 (<5); CREATININE FOR GFR 1.01 MG/DL (0.70-1.30); FOLATE 8.2 NG/ML; GLOMERULAR FILTRATION RATE > 60.0 (>42); GLUCOSE, FASTING 111 MG/DL (70-100); HDL CHOLESTEROL 57 MG/DL (>40); LDL CHOLESTEROL 86 MG/DL (<100); NON-HDL-C 112 MG/DL; POTASSIUM SERUM 4.7 MEQ/L (3.5-5.1); SODIUM LEVEL 138 MEQ/L (136-145); TOTAL PROTEIN 7.3 GM/DL (6.4-8.2); TRIGLYCERIDES LEVEL 132 MG/DL (<150); VITAMIN B12 LEVEL 466 PG/ML
[2021-08-27 15:22] LABS: HEMOGLOBIN A1c 5.5 %
== END ==
LOC: M SFHCPLAZ 09:52 → M SFHCADAM 10:30
PROVIDERS: ATTEND Internal Medicine
DX: E78.00 Pure hypercholesterolemia, unspecified (principal); I10 Essential (primary) hypertension; K21.9 Gastro-esophageal reflux disease without esophagitis; G62.9 Polyneuropathy, unspecified; R73.01 Impaired fasting glucose; Z12.5 Encounter for screening for malignant neoplasm of prostate; Z11.59 Encounter for screening for other viral diseases
CPT/HCPCS: 80053; 80061; 82607; 82746; 83036; 85025; G0103; G0463; G0472

== ENCOUNTER → 2022-01-15 | Outpatient (REF) | payer MEDICARE, OTHER ==
[~2022-01-15] MED LIST changes: +POTA-151 PO; -POTA20TA6 PO
[2022-01-15 12:58] LABS: BASO % 0.8 % (0.0-1.0); EOS # 0.1 10^3/uL (0.0-0.5); EOS % 1.3 % (0.0-3.0); HEMATOCRIT 43.4 % (42.0-52.0); HEMOGLOBIN 14.5 g/dl (13.5-17.5); LYMPH # 0.6 10^3/uL (1.5-5.0); LYMPH % 15.3 % (24.0-44.0); MEAN CORPUSCULAR HGB CONC 33.4 g/dl (32.0-36.5); MEAN CORPUSCULAR VOLUME 89.7 fl (80.0-96.0); MONO # 0.5 10^3/uL (0.0-0.8); MONO % 13.2 % (2.0-8.0); NEUTROPHILS # 2.7 10^3/uL (1.5-8.5); NEUTROPHILS % 68.9 % (36.0-66.0); PLATELET COUNT, AUTOMATED 181 10^3/uL (150-450); RED BLOOD COUNT 4.84 10^6/uL (4.30-6.10); WHITE BLOOD COUNT 3.9 10^3/uL (4.0-10.0)
[2022-01-15 13:33] LABS: BLOOD UREA NITROGEN 18 MG/DL (7-18); CALCIUM LEVEL 8.9 MG/DL (8.8-10.2); CARBON DIOXIDE LEVEL 27 MEQ/L (21-32); CHLORIDE LEVEL 107 MEQ/L (98-107); CREATININE FOR GFR 0.96 MG/DL (0.70-1.30); GLOMERULAR FILTRATION RATE > 60.0 (>42); GLUCOSE, FASTING 98 MG/DL (70-100); POTASSIUM SERUM 3.9 MEQ/L (3.5-5.1); SODIUM LEVEL 140 MEQ/L (136-145)
== END ==
LOC: M SFHCPLAZ 09:17
PROVIDERS: ATTEND Internal Medicine
DX: Z01.818 Encounter for other preprocedural examination (principal); I10 Essential (primary) hypertension

== ENCOUNTER → 2022-07-01 | Outpatient (CLI) | payer MEDICARE, OTHER ==
[2022-07-01 13:30] LABS: BASO % 0.6 % (0.0-1.0); EOS # 0.1 10^3/uL (0.0-0.5); EOS % 1.4 % (0.0-3.0); HEMATOCRIT 40.9 % (42.0-52.0); HEMOGLOBIN 12.9 g/dl (13.5-17.5); LYMPH # 1.2 10^3/uL (1.5-5.0); LYMPH % 17.7 % (24.0-44.0); MEAN CORPUSCULAR HEMOGLOBIN 27.1 pg (27.0-33.0); MEAN CORPUSCULAR HGB CONC 31.5 g/dl (32.0-36.5); MEAN CORPUSCULAR VOLUME 85.9 fl (80.0-96.0); MONO # 0.6 10^3/uL (0.0-0.8); MONO % 9.3 % (2.0-8.0); NEUTROPHILS # 4.9 10^3/uL (1.5-8.5); NEUTROPHILS % 70.6 % (36.0-66.0); PLATELET COUNT, AUTOMATED 260 10^3/uL (150-450); RED BLOOD COUNT 4.76 10^6/uL (4.30-6.10); WHITE BLOOD COUNT 6.9 10^3/uL (4.0-10.0)
[2022-07-01 14:16] LABS: BLOOD UREA NITROGEN 17 MG/DL (7-18); CALCIUM LEVEL 9.1 MG/DL (8.8-10.2); CARBON DIOXIDE LEVEL 25 MEQ/L (21-32); CHLORIDE LEVEL 106 MEQ/L (98-107); CREATININE FOR GFR 0.88 MG/DL (0.70-1.30); GLOMERULAR FILTRATION RATE > 60.0 (>42); GLUCOSE, FASTING 98 MG/DL (70-100); MAGNESIUM LEVEL 1.8 MG/DL (1.8-2.4); NT-PRO BNP 158 PG/ML (<125); POTASSIUM SERUM 3.8 MEQ/L (3.5-5.1); SODIUM LEVEL 139 MEQ/L (136-145)
== END ==
LOC: M ADAMS 08:10
PROVIDERS: ATTEND Physician Assistant
DX: R06.02 Shortness of breath (principal); I11.9 Hypertensive heart disease without heart failure; I48.0 Paroxysmal atrial fibrillation

== ENCOUNTER → 2022-08-29 | Outpatient (REF) | payer MEDICARE, OTHER ==
[2022-08-29 13:34] LABS: HEMOGLOBIN 13.2 g/dl (13.5-17.5); MEAN CORPUSCULAR HEMOGLOBIN 28.2 pg (27.0-33.0); MEAN CORPUSCULAR HGB CONC 32.2 g/dl (32.0-36.5); MEAN CORPUSCULAR VOLUME 87.6 fl (80.0-96.0); PLATELET COUNT, AUTOMATED 236 10^3/uL (150-450); RED BLOOD COUNT 4.68 10^6/uL (4.30-6.10); WHITE BLOOD COUNT 6.2 10^3/uL (4.0-10.0)
[2022-08-29 14:39] LABS: ALBUMIN 3.6 GM/DL (3.2-5.2); ALT/SGPT 22 U/L (12-78); BILIRUBIN,TOTAL 0.4 MG/DL (0.2-1.0); BLOOD UREA NITROGEN 21 MG/DL (7-18); C REACTIVE PROTEIN QUANTITATIV 0.85 MG/DL (0.00-0.30); CARBON DIOXIDE LEVEL 24 MEQ/L (21-32); CHLORIDE LEVEL 107 MEQ/L (98-107); CHOLESTEROL LEVEL 125 MG/DL (<200); CHOLESTEROL RISK RATIO 2.314 (<5); CREATININE FOR GFR 0.92 MG/DL (0.70-1.30); FREE T4 0.88 NG/DL (0.76-1.46); GLOMERULAR FILTRATION RATE > 60.0 (>42); GLUCOSE, FASTING 105 MG/DL (70-100); HDL CHOLESTEROL 54 MG/DL (>40); LDL CHOLESTEROL 56 MG/DL (<100); NON-HDL-C 71 MG/DL; POTASSIUM SERUM 4.3 MEQ/L (3.5-5.1); SODIUM LEVEL 139 MEQ/L (136-145); TOTAL PROTEIN 6.9 GM/DL (6.4-8.2); TRIGLYCERIDES LEVEL 77 MG/DL (<150)
[2022-08-29 14:47] LABS: MALB URINE SIEMENS 23.3 MG/L; MAU/CREAT RATIO 11.1 MCG/MG (0.0-30.0)
[2022-08-29 15:10] LABS: TOTAL 25(OH) VITAMIN D 22.9 NG/ML (30.0-100.0)
[2022-08-29 15:18] LABS: VITAMIN B12 LEVEL 430 PG/ML (247-911)
[2022-08-29 18:58] LABS: HEMOGLOBIN A1c 5.6 %
== END ==
LOC: M SFHCPLAZ 08:22
PROVIDERS: ATTEND Internal Medicine Hematology
DX: E78.00 Pure hypercholesterolemia, unspecified (principal); Z12.5 Encounter for screening for malignant neoplasm of prostate
CPT/HCPCS: 80053; 80061; 82043; 82306; 82607; 83036; 84439; 84443; 85027; 86140; G0103

== ENCOUNTER → 2023-02-03 | Outpatient (REF) | payer MEDICARE, OTHER ==
[~2023-02-03] MED LIST changes: +ELIQ5TAB PO
[2023-02-03 14:25] LABS: HEMATOCRIT 40.1 % (42.0-52.0); HEMOGLOBIN 12.9 g/dl (13.5-17.5); MEAN CORPUSCULAR HGB CONC 32.2 g/dl (32.0-36.5); MEAN CORPUSCULAR VOLUME 90.1 fl (80.0-96.0); PERCENT SATURATION 16.9 % (19.7-50.0); PLATELET COUNT, AUTOMATED 178 10^3/uL (150-450); RED BLOOD COUNT 4.45 10^6/uL (4.30-6.10); WHITE BLOOD COUNT 6.1 10^3/uL (4.0-10.0)
[2023-02-03 14:27] LABS: TOTAL 25(OH) VITAMIN D 26.7 NG/ML (20.0-100.0)
== END ==
LOC: M SFHCPLAZ 07:56
PROVIDERS: ATTEND Internal Medicine Hematology
DX: D64.9 Anemia, unspecified (principal)
CPT/HCPCS: 82306; 83550; 85027; G0103

== ENCOUNTER 2023-02-07 06:33 | Emergency (ER) | payer MEDICARE, OTHER ==
[~2023-02-07] VITALS: Ht 175.3 cm; Wt 99.8 kg
[~2023-02-07 06:33] MED LIST changes: -ELIQ5TAB PO
[2023-02-07 08:18] LABS: BASO % 0.9 % (0.0-1.0); EOS # 0.1 10^3/uL (0.0-0.5); EOS % 1.1 % (0.0-3.0); HEMATOCRIT 40.1 % (42.0-52.0); HEMOGLOBIN 13.4 g/dl (13.5-17.5); LYMPH # 0.7 10^3/uL (1.5-5.0); LYMPH % 15.5 % (24.0-44.0); MEAN CORPUSCULAR HEMOGLOBIN 29.3 pg (27.0-33.0); MEAN CORPUSCULAR HGB CONC 33.4 g/dl (32.0-36.5); MEAN CORPUSCULAR VOLUME 87.7 fl (80.0-96.0); MONO # 0.5 10^3/uL (0.0-0.8); MONO % 10.8 % (2.0-8.0); NEUTROPHILS # 3.2 10^3/uL (1.5-8.5); NEUTROPHILS % 71.5 % (36.0-66.0); PLATELET COUNT, AUTOMATED 201 10^3/uL (150-450); RED BLOOD COUNT 4.57 10^6/uL (4.30-6.10); WHITE BLOOD COUNT 4.5 10^3/uL (4.0-10.0)
[2023-02-07 08:47] LABS: BLOOD UREA NITROGEN 23 MG/DL (9-23); CALCIUM LEVEL 8.6 MG/DL (8.3-10.6); CARBON DIOXIDE LEVEL 26 MMOL/L (20-31); CHLORIDE LEVEL 105 MMOL/L (98-107); CREATININE FOR GFR 0.76 MG/DL (0.70-1.30); GLOMERULAR FILTRATION RATE > 60.0 (>42); GLUCOSE, FASTING 109 MG/DL (74-106); MAGNESIUM LEVEL 1.8 MG/DL (1.8-2.4); POTASSIUM SERUM 3.6 MMOL/L (3.5-5.1); SODIUM LEVEL 140 MMOL/L (136-145)
[2023-02-07] MEDS ORDERED: ELIQ5TAB PO (10:09)
[2023-02-07] MEDS ORDERED: APIXABAN 5 MG TAB (ELIQUIS) PO ONE (10:30)
[2023-02-07 10:33] VITALS: TEMP 96.9; O2SAT 94
[2023-02-07 10:45] VITALS: BP 155/92
== END 2023-02-07 10:54 | disposition home or self-care (01) ==
LOC: M ED 06:33
DX: I48.0 Paroxysmal atrial fibrillation (principal); D64.9 Anemia, unspecified; I10 Essential (primary) hypertension; E78.5 Hyperlipidemia, unspecified; Z95.0 Presence of cardiac pacemaker; Z82.49 Family history of ischemic heart disease and other diseases of the circulatory system; Z82.3 Family history of stroke; Z79.899 Other long term (current) drug therapy

== ENCOUNTER → 2023-04-14 | Outpatient (REF) | payer MEDICARE, OTHER ==
[~2023-04-14] MED LIST changes: +ELIQ5TAB PO
[2023-04-14 14:25] LABS: HEMATOCRIT 39.6 % (42.0-52.0); HEMOGLOBIN 12.7 g/dl (13.5-17.5); MEAN CORPUSCULAR HEMOGLOBIN 28.4 pg (27.0-33.0); MEAN CORPUSCULAR HGB CONC 32.1 g/dl (32.0-36.5); MEAN CORPUSCULAR VOLUME 88.6 fl (80.0-96.0); PLATELET COUNT, AUTOMATED 197 10^3/uL (150-450); RED BLOOD COUNT 4.47 10^6/uL (4.30-6.10); WHITE BLOOD COUNT 4.8 10^3/uL (4.0-10.0)
[2023-04-14 14:57] LABS: BLOOD UREA NITROGEN 22 MG/DL (9-23); CALCIUM LEVEL 8.8 MG/DL (8.3-10.6); CARBON DIOXIDE LEVEL 26 MMOL/L (20-31); CHLORIDE LEVEL 105 MMOL/L (98-107); CREATININE FOR GFR 0.93 MG/DL (0.70-1.30); GLOMERULAR FILTRATION RATE > 60.0 (>42); GLUCOSE, FASTING 91 MG/DL (74-106); SODIUM LEVEL 137 MMOL/L (136-145)
== END ==
LOC: M LABDRWAD 13:04
PROVIDERS: ATTEND Physician Assistant
DX: I49.5 Sick sinus syndrome (principal)

== ENCOUNTER 2023-04-29 13:18 | Day surgery (SDC) | payer MEDICARE, OTHER ==
[~2023-04-29] VITALS: Ht 175.3 cm; Wt 97.4 kg
[~2023-04-29 13:18] MED LIST changes: +HYDR-3716 PO; +ceFAZolin SOD 2 GM in IV 1 EA IV ONE
[2023-04-29] MEDS ORDERED: LIDOCAINE 2% 100MG/5ML SDV (FOR ANES.) As Ordered ONE (14:12)
[2023-04-29] MEDS ORDERED: propofoL 200 MG/20 ML VIAL As Ordered ONE ×2 (14:13→16:17)
[2023-04-29] MEDS ORDERED: LR 1,000 ML IV SCH (14:25)
[2023-04-29] MEDS ORDERED: LIDOCAINE 1% SDV 30ML VIAL As Ordered ONE (14:26)
[2023-04-29] MEDS ORDERED: POLYSPORIN TOPICAL OINTMENT 15GM As Ordered ONE (14:27)
[2023-04-29] MEDS ORDERED: MUPIROCIN 2% OINT 22 GM TUBE As Ordered ONE (14:31)
[2023-04-29] MEDS ORDERED: fentaNYL 100 MCG/2 ML INJECTION As Ordered ONE (15:20)
[2023-04-29] MEDS ORDERED: MIDAZOLAM INJ 2MG/2ML VIAL As Ordered ONE (15:20)
[2023-04-29] MEDS ORDERED: KETOROLAC 60MG 2ML VIAL As Ordered ONE (16:33)
[2023-04-29 17:15] VITALS: BP 170/86; TEMP 97.2; O2SAT 96
== END 2023-04-29 17:17 | disposition home or self-care (01) ==
LOC: M SDC 13:18
PROVIDERS: ATTEND Internal Medicine Cardiovascular Disease
DX: T82.111A Breakdown (mechanical) of cardiac pulse generator (battery), initial encounter (principal); I48.91 Unspecified atrial fibrillation; I10 Essential (primary) hypertension; E78.5 Hyperlipidemia, unspecified; K21.9 Gastro-esophageal reflux disease without esophagitis; G62.9 Polyneuropathy, unspecified; Z79.01 Long term (current) use of anticoagulants; Z79.899 Other long term (current) drug therapy; Z88.1 Allergy status to other antibiotic agents; Z88.8 Allergy status to other drugs, medicaments and biological substances
CPT/HCPCS: 33228; C1785; J0690; J1885; J2250; J3010

== ENCOUNTER → 2023-08-31 | Outpatient (REF) | payer MEDICARE, OTHER ==
[~2023-08-31] MED LIST changes: -ceFAZolin SOD 2 GM in IV 1 EA IV ONE
[2023-08-31 13:34] LABS: HEMATOCRIT 38.7 % (42.0-52.0); HEMOGLOBIN 12.2 g/dl (13.5-17.5); MEAN CORPUSCULAR HEMOGLOBIN 26.1 pg (27.0-33.0); MEAN CORPUSCULAR HGB CONC 31.5 g/dl (32.0-36.5); MEAN CORPUSCULAR VOLUME 82.7 fl (80.0-96.0); PLATELET COUNT, AUTOMATED 242 10^3/uL (150-450); RED BLOOD COUNT 4.68 10^6/uL (4.30-6.10)
[2023-08-31 13:38] LABS: C REACTIVE PROTEIN QUANTITATIV < 0.40 MG/DL (<1.0)
[2023-08-31 13:40] LABS: ALBUMIN 3.7 G/DL (3.2-5.2); ALKALINE PHOSPHATASE 50 U/L (46-116); ALT/SGPT 26 U/L (7.0-40); AST/SGOT 18 U/L (<34); BILIRUBIN,TOTAL 0.4 MG/DL (0.3-1.2); BLOOD UREA NITROGEN 16 MG/DL (9-23); CALCIUM LEVEL 8.5 MG/DL (8.3-10.6); CARBON DIOXIDE LEVEL 25 MMOL/L (20-31); CHLORIDE LEVEL 106 MMOL/L (98-107); CHOLESTEROL LEVEL 145 MG/DL (<200); CHOLESTEROL RISK RATIO 2.78 (<5); CREATININE FOR GFR 0.74 MG/DL (0.70-1.30); FREE T4 0.94 NG/DL (0.89-1.76); GLOMERULAR FILTRATION RATE > 60.0 (>42); GLUCOSE, FASTING 110 MG/DL (74-106); HDL CHOLESTEROL 52.1 MG/DL (>40); LDL CHOLESTEROL 67.7 MG/DL (<100); NON-HDL-C 92.9 MG/DL; POTASSIUM SERUM 3.8 MMOL/L (3.5-5.1); SODIUM LEVEL 142 MMOL/L (136-145); TOTAL PROTEIN 6.8 G/DL (5.7-8.2); TRIGLYCERIDES LEVEL 126 MG/DL (<150)
[2023-08-31 13:41] LABS: THYROID STIMULATING HORMONE 2.535 uIU/ML (0.55-4.78)
[2023-08-31 13:42] LABS: TOTAL 25(OH) VITAMIN D 29.4 NG/ML (20.0-100.0)
[2023-08-31 13:43] LABS: VITAMIN B12 LEVEL 409 PG/ML (211-911)
[2023-08-31 13:46] LABS: HEMOGLOBIN A1c 5.6 % (4.0-6.0)
[2023-08-31 14:00] LABS: CREATININE, URINE 114.4 MG/DL; MAU/CREAT RATIO 35.8 MCG/MG (0.0-30.0)
== END ==
LOC: M SFHCPLAZ 07:19
PROVIDERS: ATTEND Internal Medicine Hematology
DX: R73.01 Impaired fasting glucose (principal); Z12.5 Encounter for screening for malignant neoplasm of prostate; Z79.899 Other long term (current) drug therapy
CPT/HCPCS: 80053; 80061; 82043; 82306; 82607; 83036; 84439; 84443; 85027; 86140; G0103

== ENCOUNTER → 2023-09-22 | Outpatient (CLI) | payer MEDICARE, OTHER | LOC: M ADAMS 09:05 | PROVIDERS: ATTEND Internal Medicine Hematology | DX: M72.2 Plantar fascial fibromatosis (principal) ==

== ENCOUNTER → 2023-10-12 | Outpatient (CLI) | payer MEDICARE, OTHER | LOC: M ADAMS 10:14 | PROVIDERS: ATTEND Internal Medicine Hematology | DX: R07.9 Chest pain, unspecified (principal); Z90.49 Acquired absence of other specified parts of digestive tract ==

== ENCOUNTER → 2024-02-25 | Outpatient (REF) | payer MEDICARE, OTHER ==
[2024-02-25 14:36] LABS: C REACTIVE PROTEIN QUANTITATIV < 0.40 MG/DL (<1.0)
[2024-02-25 14:38] LABS: ALBUMIN 3.8 G/DL (3.2-5.2); ALKALINE PHOSPHATASE 49 U/L (46-116); ALT/SGPT 32 U/L (7.0-40); AST/SGOT 17 U/L (<34); BILIRUBIN,TOTAL 0.4 MG/DL (0.3-1.2); BLOOD UREA NITROGEN 19 MG/DL (9-23); CALCIUM LEVEL 8.9 MG/DL (8.3-10.6); CARBON DIOXIDE LEVEL 27 MMOL/L (20-31); CHLORIDE LEVEL 104 MMOL/L (98-107); CHOLESTEROL LEVEL 123 MG/DL (<200); CHOLESTEROL RISK RATIO 2.54 (<5); CREATININE FOR GFR 0.88 MG/DL (0.70-1.30); GLOMERULAR FILTRATION RATE > 60.0 (>42); GLUCOSE, FASTING 96 MG/DL (74-106); HDL CHOLESTEROL 48.3 MG/DL (>40); LDL CHOLESTEROL 62.9 MG/DL (<100); NON-HDL-C 74.7 MG/DL; POTASSIUM SERUM 4.2 MMOL/L (3.5-5.1); SODIUM LEVEL 137 MMOL/L (136-145); TOTAL PROTEIN 6.9 G/DL (5.7-8.2); TRIGLYCERIDES LEVEL 59 MG/DL (<150)
[2024-02-25 14:39] LABS: THYROID STIMULATING HORMONE 1.532 uIU/ML (0.55-4.78)
[2024-02-25 14:40] LABS: VITAMIN B12 LEVEL 621 PG/ML (211-911)
[2024-02-25 14:48] LABS: BASO # 0.1 10^3/uL (0.0-0.2); BASO % 0.9 % (0.0-1.0); EOS # 0.1 10^3/uL (0.0-0.5); EOS % 2.6 % (0.0-3.0); HEMATOCRIT 35.4 % (42.0-52.0); HEMOGLOBIN 10.6 g/dl (13.5-17.5); LYMPH # 1.2 10^3/uL (1.5-5.0); LYMPH % 22.4 % (24.0-44.0); MEAN CORPUSCULAR HEMOGLOBIN 23.6 pg (27.0-33.0); MEAN CORPUSCULAR HGB CONC 29.9 g/dl (32.0-36.5); MEAN CORPUSCULAR VOLUME 78.7 fl (80.0-96.0); MONO # 0.6 10^3/uL (0.0-0.8); MONO % 10.9 % (2.0-8.0); NEUTROPHILS # 3.3 10^3/uL (1.5-8.5); NEUTROPHILS % 62.6 % (36.0-66.0); PLATELET COUNT, AUTOMATED 270 10^3/uL (150-450); WHITE BLOOD COUNT 5.3 10^3/uL (4.0-10.0)
[2024-02-25 15:14] LABS: HEMOGLOBIN A1c 5.8 % (4.0-6.0)
== END ==
LOC: M SFHCPLAZ 07:49
PROVIDERS: ATTEND Internal Medicine Hematology
DX: R73.01 Impaired fasting glucose (principal); I10 Essential (primary) hypertension; M54.9 Dorsalgia, unspecified; Z95.0 Presence of cardiac pacemaker; Z79.899 Other long term (current) drug therapy

== ENCOUNTER → 2024-03-01 | Outpatient (REF) | payer MEDICARE, OTHER ==
[2024-03-01 18:45] LABS: PERCENT SATURATION 4.7 % (19.7-50.0)
== END ==
LOC: M SFHCPLAZ 15:15
PROVIDERS: ATTEND Internal Medicine Hematology
DX: Z95.0 Presence of cardiac pacemaker (principal); I10 Essential (primary) hypertension; M54.9 Dorsalgia, unspecified; R73.01 Impaired fasting glucose; Z86.39 Personal history of other endocrine, nutritional and metabolic disease

== ENCOUNTER 2024-03-18 08:31 | Outpatient (CLI) | payer OTHER, MEDICARE ==
[~2024-03-18] VITALS: Ht 175.3 cm; Wt 100.0 kg
[~2024-03-18 08:31] MED LIST changes: +ALBUTEROL SULFATE 2.5MG/0.5ML INH NEB SOLN INH PRN; +EPINEPHrine INJ 1 MG/ML 1ML AMP IM PRN; +diphenhydrAMINE 50MG/ML VIAL IV PRN; +methylPREDNISolone 125MG 2ML VIAL IV PRN
[2024-03-18 08:44] VITALS: BP 145/73; O2SAT 95
[2024-03-18] MEDS: IRON SUCROSE 300 MG in NS 250 ML OVER 90 MIN. IV ONE (08:50)
[2024-03-18] MEDS ORDERED: NS 1,000 ML IV SCH (09:00)
[2024-03-18 10:59] VITALS: BP 138/70; O2SAT 95
== END 2024-03-18 11:00 | disposition home or self-care (01) ==
LOC: M INFU 08:31
PROVIDERS: ATTEND Internal Medicine Hematology
DX: D50.9 Iron deficiency anemia, unspecified (principal); Z88.1 Allergy status to other antibiotic agents; Z88.8 Allergy status to other drugs, medicaments and biological substances
CPT/HCPCS: 96365; 96366; J1756

== ENCOUNTER 2024-03-25 10:15 | Outpatient (CLI) | payer MEDICARE, OTHER ==
[~2024-03-25] VITALS: Ht 175.3 cm; Wt 102.0 kg
[2024-03-25 10:10] VITALS: BP 140/66; O2SAT 97
[~2024-03-25 10:15] MED LIST changes: +NS 1,000 ML IV SCH
[2024-03-25] MEDS: IRON SUCROSE 300 MG in NS 250 ML OVER 90 MIN. IV ONE (10:28)
[2024-03-25 12:00] VITALS: BP 150/81; O2SAT 99
== END 2024-03-25 12:10 | disposition home or self-care (01) ==
LOC: M INFU 10:15
PROVIDERS: ATTEND Internal Medicine Hematology
DX: D50.9 Iron deficiency anemia, unspecified (principal); Z88.1 Allergy status to other antibiotic agents; Z88.8 Allergy status to other drugs, medicaments and biological substances
CPT/HCPCS: 96365; 96366; J1756

== ENCOUNTER 2024-04-08 10:20 | Outpatient (CLI) | payer OTHER, MEDICARE ==
[~2024-04-08] VITALS: Ht 175.3 cm; Wt 100.0 kg
[2024-04-08] MEDS: IRON SUCROSE 300 MG in NS 250 ML IV ONE (10:46)
[2024-04-08 11:25] VITALS: BP 139/79; O2SAT 98
[2024-04-08 12:20] VITALS: BP 141/84; O2SAT 60
== END 2024-04-08 12:25 ==
LOC: M INFU 10:20
PROVIDERS: ATTEND Internal Medicine Hematology
DX: D50.9 Iron deficiency anemia, unspecified (principal); Z88.1 Allergy status to other antibiotic agents; Z88.8 Allergy status to other drugs, medicaments and biological substances
CPT/HCPCS: 96365; 96366; J1756

== ENCOUNTER → 2024-09-02 | Outpatient (REF) | payer MEDICARE, OTHER ==
[~2024-09-02] MED LIST changes: -ALBUTEROL SULFATE 2.5MG/0.5ML INH NEB SOLN INH PRN; -EPINEPHrine INJ 1 MG/ML 1ML AMP IM PRN; -NS 1,000 ML IV SCH; -diphenhydrAMINE 50MG/ML VIAL IV PRN; -methylPREDNISolone 125MG 2ML VIAL IV PRN
== END ==
LOC: M SFHCADAM 08:06
PROVIDERS: ATTEND Student in an Organized Health Care Education/Training Program
DX: Z12.5 Encounter for screening for malignant neoplasm of prostate (principal)

== ENCOUNTER → 2024-09-02 | Outpatient (REF) | payer MEDICARE, OTHER ==
[2024-09-02 14:04] LABS: HEMATOCRIT 41.5 % (42.0-52.0); HEMOGLOBIN 13.3 g/dl (13.5-17.5); MEAN CORPUSCULAR HEMOGLOBIN 30.6 pg (27.0-33.0); MEAN CORPUSCULAR VOLUME 95.6 fl (80.0-96.0); PLATELET COUNT, AUTOMATED 237 10^3/uL (150-450); RED BLOOD COUNT 4.34 10^6/uL (4.30-6.10); WHITE BLOOD COUNT 4.2 10^3/uL (4.0-10.0)
[2024-09-02 14:06] LABS: FERRITIN 19.5 NG/ML (10.5-307.3)
== END ==
LOC: M LABDRWAD 12:59
PROVIDERS: ATTEND Nurse Practitioner Family
DX: D50.9 Iron deficiency anemia, unspecified (principal); K21.9 Gastro-esophageal reflux disease without esophagitis; K44.9 Diaphragmatic hernia without obstruction or gangrene; Z12.5 Encounter for screening for malignant neoplasm of prostate; Z86.0100 Personal history of colon polyps, unspecified
CPT/HCPCS: 36415; 82728; 83550; 85027; G0103

== ENCOUNTER → 2024-11-23 | Outpatient (REF) | payer MEDICARE, OTHER | LOC: M SFHCPLAZ 10:09 | PROVIDERS: ATTEND Family Medicine | DX: D50.8 Other iron deficiency anemias (principal); I10 Essential (primary) hypertension; Z78.9 Other specified health status ==

== ENCOUNTER → 2024-12-09 | Outpatient (REF) | payer MEDICARE, OTHER ==
[2024-12-09 13:24] LABS: BASO % 0.8 % (0.0-1.0); EOS # 0.1 10^3/uL (0.0-0.5); EOS % 2.4 % (0.0-3.0); HEMATOCRIT 42.1 % (42.0-52.0); HEMOGLOBIN 13.4 g/dl (13.5-17.5); LYMPH # 1.3 10^3/uL (1.5-5.0); LYMPH % 25.5 % (24.0-44.0); MEAN CORPUSCULAR HEMOGLOBIN 28.4 pg (27.0-33.0); MEAN CORPUSCULAR HGB CONC 31.8 g/dl (32.0-36.5); MEAN CORPUSCULAR VOLUME 89.2 fl (80.0-96.0); MONO # 0.6 10^3/uL (0.0-0.8); MONO % 11.8 % (2.0-8.0); NEUTROPHILS % 59.3 % (36.0-66.0); PLATELET COUNT, AUTOMATED 209 10^3/uL (150-450); RED BLOOD COUNT 4.72 10^6/uL (4.30-6.10); WHITE BLOOD COUNT 5.1 10^3/uL (4.0-10.0)
[2024-12-09 13:45] LABS: ALBUMIN 3.7 G/DL (3.2-5.2); ALKALINE PHOSPHATASE 51 U/L (40-129); ALT/SGPT 28 U/L (7.0-40); AST/SGOT 16 U/L (<34); BILIRUBIN,TOTAL 0.5 MG/DL (0.3-1.2); BLOOD UREA NITROGEN 17 MG/DL (9-23); CARBON DIOXIDE LEVEL 28 MMOL/L (20-31); CHLORIDE LEVEL 106 MMOL/L (98-107); CREATININE FOR GFR 0.89 MG/DL (0.70-1.30); GLOMERULAR FILTRATION RATE > 60.0 (>42); GLUCOSE, FASTING 98 MG/DL (74-106); POTASSIUM SERUM 3.9 MMOL/L (3.5-5.1); SODIUM LEVEL 138 MMOL/L (136-145)
[2024-12-09 13:46] LABS: FERRITIN 14.4 NG/ML (10.5-307.3); TOTAL 25(OH) VITAMIN D 29.9 NG/ML (20.0-100.0)
[2024-12-09 13:47] LABS: VITAMIN B12 LEVEL 501 PG/ML (211-911)
== END ==
LOC: M SFHCADAM 08:12
PROVIDERS: ATTEND Family Medicine
DX: D50.8 Other iron deficiency anemias (principal); I10 Essential (primary) hypertension; Z78.9 Other specified health status; G62.9 Polyneuropathy, unspecified; E78.00 Pure hypercholesterolemia, unspecified; I48.0 Paroxysmal atrial fibrillation; J30.9 Allergic rhinitis, unspecified; M54.9 Dorsalgia, unspecified; K21.9 Gastro-esophageal reflux disease without esophagitis; N40.0 Benign prostatic hyperplasia without lower urinary tract symptoms; G47.00 Insomnia, unspecified; Z79.899 Other long term (current) drug therapy

== ENCOUNTER 2025-01-06 23:28 | Emergency (ER) | payer MEDICARE, OTHER ==
[~2025-01-06] VITALS: Ht 175.3 cm; Wt 103.9 kg
[2025-01-07 00:38] LABS: BASO % 0.8 % (0.0-1.0); EOS # 0.1 10^3/uL (0.0-0.5); EOS % 1.5 % (0.0-3.0); HEMATOCRIT 42.4 % (42.0-52.0); HEMOGLOBIN 14.2 g/dl (13.5-17.5); LYMPH # 0.9 10^3/uL (1.5-5.0); LYMPH % 16.2 % (24.0-44.0); MEAN CORPUSCULAR HEMOGLOBIN 28.7 pg (27.0-33.0); MEAN CORPUSCULAR HGB CONC 33.5 g/dl (32.0-36.5); MEAN CORPUSCULAR VOLUME 85.7 fl (80.0-96.0); MONO # 0.5 10^3/uL (0.0-0.8); NEUTROPHILS # 3.8 10^3/uL (1.5-8.5); NEUTROPHILS % 71.1 % (36.0-66.0); PLATELET COUNT, AUTOMATED 209 10^3/uL (150-450); RED BLOOD COUNT 4.95 10^6/uL (4.30-6.10); WHITE BLOOD COUNT 5.3 10^3/uL (4.0-10.0)
[2025-01-07] MEDS: METOPROLOL 5 MG/5 ML VIAL IV PRN (00:48)
[2025-01-07 01:01] LABS: ETHYL ALCOHOL (ETHANOL) 0.003 % (0.000-0.010)
[2025-01-07 01:02] LABS: BLOOD UREA NITROGEN 19 MG/DL (9-23); CALCIUM LEVEL 8.6 MG/DL (8.3-10.6); CARBON DIOXIDE LEVEL 24 MMOL/L (20-31); CHLORIDE LEVEL 102 MMOL/L (98-107); CK-MB VALUE MASS 1.8 NG/ML (<3.6); CREATININE FOR GFR 0.77 MG/DL (0.70-1.30); GLOMERULAR FILTRATION RATE > 60.0 (>42); GLUCOSE, FASTING 105 MG/DL (74-106); POTASSIUM SERUM 3.4 MMOL/L (3.5-5.1); SODIUM LEVEL 138 MMOL/L (136-145)
[2025-01-07 01:03] LABS: CPK CREATINE PHOSPHOKINASE 176 U/L (46-171); MB/CK RELATIVE INDEX 1.02 (< OR =4)
[2025-01-07 01:05] LABS: THYROID STIMULATING HORMONE 2.341 uIU/ML (0.55-4.78)
[2025-01-07] MEDS: METOPROLOL SUCC *XL* 25MG TAB (TopROL *XL*) PO ONE (01:19)
[2025-01-07] MEDS: POTASSIUM CHLORIDE 10MEQ SR TABLET PO ONE (01:19)
[2025-01-07 02:11] LABS: CK-MB VALUE MASS 1.6 NG/ML (<3.6)
[2025-01-07 02:12] LABS: MB/CK RELATIVE INDEX 0.9 (< OR =4)
[2025-01-07 02:27] VITALS: BP 150/80
[2025-01-07 03:01] VITALS: BP 107/76; TEMP 97.8; O2SAT 92
[2025-01-07] MEDS: PERCOCET 5MG/325MG TAB PO ONE (03:08)
== END 2025-01-07 03:12 | disposition home or self-care (01) ==
LOC: M ED 23:28
DX: I48.91 Unspecified atrial fibrillation (principal); E78.5 Hyperlipidemia, unspecified; I10 Essential (primary) hypertension; F10.10 Alcohol abuse, uncomplicated; Z88.1 Allergy status to other antibiotic agents; Z88.8 Allergy status to other drugs, medicaments and biological substances; Z86.79 Personal history of other diseases of the circulatory system; Z95.0 Presence of cardiac pacemaker; Z79.01 Long term (current) use of anticoagulants; Z79.02 Long term (current) use of antithrombotics/antiplatelets; Z79.899 Other long term (current) drug therapy

== ENCOUNTER → 2025-01-24 | Outpatient (CLI) | payer MEDICARE, OTHER ==
[2025-01-24 14:36] LABS: BLOOD UREA NITROGEN 20 MG/DL (9-23); CALCIUM LEVEL 9.2 MG/DL (8.3-10.6); CARBON DIOXIDE LEVEL 28 MMOL/L (20-31); CHLORIDE LEVEL 103 MMOL/L (98-107); CREATININE FOR GFR 0.85 MG/DL (0.70-1.30); GLOMERULAR FILTRATION RATE > 60.0 (>42); GLUCOSE, FASTING 91 MG/DL (74-106); SODIUM LEVEL 139 MMOL/L (136-145)
== END ==
LOC: M ADAMS 09:06
PROVIDERS: ATTEND Physician Assistant
DX: I48.0 Paroxysmal atrial fibrillation (principal); I11.9 Hypertensive heart disease without heart failure

== ENCOUNTER → 2025-08-03 | Outpatient (CLI) | payer MEDICARE, OTHER ==
[~2025-08-03] MED LIST changes: -AMBI10TA PO; +ZOLP-533 PO
== END ==
LOC: M RAD 09:25
PROVIDERS: ATTEND Student in an Organized Health Care Education/Training Program
DX: M54.50 Low back pain, unspecified (principal); Z53.9 Procedure and treatment not carried out, unspecified reason

== ENCOUNTER → 2025-08-07 | Outpatient (CLI) | payer MEDICARE, OTHER | LOC: M ADAMS 09:59 | PROVIDERS: ATTEND Nurse Practitioner Family | DX: M54.50 Low back pain, unspecified (principal); M47.816 Spondylosis without myelopathy or radiculopathy, lumbar region ==

== ENCOUNTER → 2025-10-03 | Outpatient (REF) | payer MEDICARE, OTHER ==
[2025-10-03 15:08] LABS: PSA SCREENING 3.17 NG/ML (< 4.00)
[2025-10-03 15:10] LABS: ALT/SGPT 28 U/L (7.0-40); AST/SGOT 23 U/L (<34); CALCIUM LEVEL 8.7 MG/DL (8.3-10.6); CARBON DIOXIDE LEVEL 30 MMOL/L (20-31); CHLORIDE LEVEL 103 MMOL/L (98-107); CHOLESTEROL LEVEL 128 MG/DL (<200); CHOLESTEROL RISK RATIO 2.47 (<5); CREATININE FOR GFR 0.84 MG/DL (0.70-1.30); GLOMERULAR FILTRATION RATE > 90.0 (>42); LDL CHOLESTEROL 56.8 MG/DL (<100); NON-HDL-C 76.2 MG/DL; POTASSIUM SERUM 3.8 MMOL/L (3.5-5.1); SODIUM LEVEL 139 MMOL/L (136-145); TRIGLYCERIDES LEVEL 97 MG/DL (<150)
[2025-10-03 15:20] LABS: PLATELET COUNT, AUTOMATED 218 10^3/uL (150-450)
[2025-10-03 15:40] LABS: ESTIMATED AVERAGE GLUCOSE 108.0 MG/DL (60-110)
== END ==
LOC: M SFHCADAM 07:50
PROVIDERS: ATTEND Student in an Organized Health Care Education/Training Program
DX: I10 Essential (primary) hypertension (principal); Z13.1 Encounter for screening for diabetes mellitus; Z12.5 Encounter for screening for malignant neoplasm of prostate; E78.00 Pure hypercholesterolemia, unspecified
CPT/HCPCS: 80053; 80061; 83036; 85027; G0103